=== PATIENT | male | born 1960 | race Caucasian/White ===

== ENCOUNTER 2019-12-07 15:14 | Inpatient (IN) | payer MEDICARE, SELFPAY ==
--- NOTE | ~2019-12-07 | CT_ITS ---
EXAMINATION: CT soft tissue neck w con EXAM DATE: 12/08/2019 14:57 INDICATION: Left ear cellulitis, parotid mastoid swelling. TECHNIQUE: Spiral CT of the neck was performed following intravenous injection of 75 mL Omnipaque 350 . Axial, coronal and sagittal images were reviewed. The dose-length product (DLP) for this examinat ion was 588.71 mGy-cm. The exposure was tailored according to patient size (auto mA exposure control ), and iterative reconstruction (ASIR) was used as additional dose reduction technique. There is no prior study for comparison. FINDINGS: Left-sided subcutaneous facial swelling, swelling of the left ear, appearance is consistent with cellulitis. There is no underlying abscess or sialolithiasis. The thyroid gland is unremarkabl e. The submandibular and parotid glands are symmetric. There is no cervical lymphadenopathy. The re are no masses identified. The superior mediastinum is unremarkable. The airway is unremarkabl e. Parapharyngeal and pre-glottic fat planes are preserved. The opacified vasculature is patent. Mild bilateral carotid arteriosclerosis. The orbits are unremarkable. There is minimal left mastoid e ffusion without dehiscence. Otherwise sinuses, middle ears and mastoid air cells are well aerated. Lung apices unremarkable. Cervical fusion hardware, C6 corpectomy. IMPRESSION: Left facial, ear subcutaneous swelling without underlying abscess or lymphadenopathy. Tr renzo left mastoid effusion. Reviewed, dictated and finalized at location B. IMPRESSION: Left facial, ear subcutaneous swelling without underlying abscess or lymphadenopathy. Trace left mastoid effusion.
[2019-12-07 15:55] VITALS: BP 131/73; PULSE 106; RESP 15; TEMP 36.6; O2SAT 99
[2019-12-07 16:10] LABS: Basophils Percent Auto 0.6 % (0.2-1.2); Eosinophils Absolute Auto 0.1 K/mm3 (0-0.3); Eosinophils Percent Auto 0.9 % (0-4.4); Hematocrit 37.9 % (42.0-52.0); Hemoglobin 13.2 g/dL (14.0-18.0); Immature Granulocyte Absolute 0.02 K/mm3 (0.00-0.031); Immature Granulocyte Percent A 0.3 % (0-0.5); Lymphocytes Absolute Auto 0.93 K/mm3 (0.9-3.2); Lymphocytes Percent Auto 14.2 % (18.3-44.2); Mean Corpuscular HGB Conc 34.8 g/dl (32-36); Mean Corpuscular Hemoglobin 32.8 pg (26-34); Mean Platelet Volume 9.8 fl (7.4-10.4); Monocytes Absolute Auto 0.6 K/mm3 (0.1-0.6); Monocytes Percent Auto 8.9 % (2.6-8.5); Neutrophils Absolute Auto 4.9 K/mm3 (1.3-6.7); Neutrophils Percent Auto 75.1 % (45.5-73.1); Platelet Count Result 157 k/mm3 (150-375); Red Blood Count 4.03 M/mm3 (4.6-6.20); Red Cell Distribution Width 12.4 % (11.5-14.5); White Blood Count 6.5 K/mm3 (4.5-10.0)
[2019-12-07 16:22] LABS: Lactic Acid Reflex 0.8 mmol/L (0.7-2.1)
[2019-12-07 16:25] LABS: Alanine Aminotransferase 40 U/L (4-50); Albumin Level 3.6 g/dL (3.5-5.1); Alkaline Phosphatase 67 U/L (38-126); Anion Gap 5 mmol/L (8-16); Aspartate Amino Transferase 45 U/L (17-59); Bilirubin,Total 0.4 mg/dL (0.2-1.3); Blood Urea Nitrogen 9 mg/dL (9-20); Calcium 9.2 mg/dL (8.4-10.2); Carbon Dioxide 28 mmol/L (22-30); Chloride 101 mmol/L (98-107); Estimated CRCL calculation 102 ml/min; Estimated Glomerular Filt Rate > 60; Glucose 147 mg/dL (75-110); INR 0.9; Potassium 4.5 mmol/L (3.4-5.0); Prothrombin Time 12.2 Seconds (11.1-14.7); Sodium 134 mmol/L (137-145)
[2019-12-07 16:26] LABS: Partial Thromboplastin Time 32.4 SECONDS (22.3-36.8)
[2019-12-07 16:35] LABS: CRP 18.5 mg/dL (<1.0)
--- NOTE | 2019-12-07 18:15 | ED.WOUNDLAC ---
HPI - Wound/Laceration General Chief Complaint: Wound/Laceration <NILA Archibald Last Filed: 12/07/19 20:58> Stated Complaint: infected left ear <NILA Archibald Last Filed: 12/07/19 20:58> Time Seen by Provider: 12/07/19 17:56 <NILA Archibald Last Filed: 12/07/19 20:58> Source: patient <NILA Archibald Last Filed: 12/07/19 20:58> Mode of arrival: ambulatory <NILA Archibald Last Filed: 12/07/19 20:58> Limitations: no limitations <NILA Archibald Last Filed: 12/07/19 20:58> History of Present Illness HPI narrative: This is a 59-year-old male that presents the emergency department for left ear redness and swelling x4 days. Reports he sustained a superficial abrasion to the ear while working outside on Friday. Reports when he woke up the next day his ear was red and swollen. Also reports fevers. Reports he took a couple of doses of his friends Keflex yesterday without relief. Reports he has not been on his HIV medications for the last couple of weeks. Denies drainage. <NILA Archibald Last Filed: 12/07/19 20:58> Related Data Home Medications: Home Medications Medication Instructions Recorded Confirmed twnecwtqxc-jggasaeb-dgdtzr ala 1 tablet PO DAILY 12/07/19 12/07/19 [[place]] lisinopril 20 mg PO DAILY 12/07/19 12/07/19 metformin 500 mg PO DAILY 12/07/19 12/07/19 pravastatin 20 mg PO DAILY 12/07/19 12/07/19 sertraline 50 mg PO DAILY 12/07/19 12/07/19 <NILA Archibald Last Filed: 12/07/19 20:58> Allergies/Adverse Reactions: Allergies Allergy/AdvReac Type Severity Reaction Status Date / Time Cultivated Oat Pollen Allergy Mild Itching Uncoded 12/07/19 19:01 Dust Allergy Mild Dyspnea / Uncoded 12/07/19 19:01 SOB Molds and Smuts Allergy Mild Itching Uncoded 12/07/19 19:01 <Lolly Garrison PA-C - Last Filed: 12/07/19 20:58> Review of Systems Review of Systems: Narrative: CONSTITUTIONAL: Reports fever ENT: Reports otalgia. SKIN: Reports erythema and edema <Lolly Garrison PA-C - Last Filed: 12/07/19 20:58> All systems reviewed & are unremarkable except as noted in HPI and below <Lolly Garrison PA-C - Last Filed: 12/07/19 20:58> PMF Past Medical History Medical History: Medical History (Updated 12/08/19 @ 10:11 by Odilia Sanchez PA-C) Arthritis Chronic neck and left shoulder pain Depression with anxiety Diabetes mellitus HIV (human immunodeficiency virus infection) Hypertension Peripheral neuropathy <Lolly Garrison PA-C - Last Filed: 12/07/19 20:58> Surgical History Surgical History: Surgical History (Updated 12/08/19 @ 09:56 by Odilia Sanchez PA-C) H/O hand surgery Surgery to right hand after a fracture many years ago H/O neck surgery Around 2017 History of mandibular surgery Many years ago per patient <Lolly Garrison PA-C - Last Filed: 12/07/19 20:58> Family History Family History: Family History Mother Diabetes mellitus Hypertension Myocardial infarct Hypercholesteremia Sibling Diabetes mellitus Myocardial infarct Sibling Diabetes mellitus Sibling Diabetes mellitus Sibling Diabetes mellitus Sibling Diabetes mellitus Myocardial infarct Father Lung cancer <Lolly Garrison PA-C - Last Filed: 12/07/19 20:58> Social History Social History: Social History (Updated 12/08/19 @ 09:59 by Odilia Sanchez PA-C) Social History: Mr. Huntley lives at home in [place] with his sister, Shyann. 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 He reports drinking around 2 to 3 beers per day on some days, some days none. He smokes marijuana daily for pain and anxiety. He denies other substance use. Never tobacco smoker. His PCP is Dr Juan Flores. He designates his sister, Shyann, to be his surrogate decision maker and he is full code
[2019-12-07 19:01] VITALS: BP 110/79; PULSE 82; RESP 18; O2SAT 98
[2019-12-07 19:42] LABS: HIV 1/2 Ab P24 Ag 162
[2019-12-07 19:44] LABS: HIV 1/2 Ab P24 Ag Result Reactive (Negative)
[2019-12-07 19:47] VITALS: BP 107/73; PULSE 89; RESP 18; O2SAT 100
[2019-12-07 20:45] VITALS: BP 117/74; PULSE 91; RESP 18; O2SAT 100
[2019-12-07 21:59] VITALS: BP 111/72; PULSE 76; RESP 18; O2SAT 100
[2019-12-07 22:10] VITALS: BP 126/77; PULSE 94; RESP 18; TEMP 36.4; O2SAT 100; BMI 24.2
[2019-12-07] MEDS: SODIUM CHLORIDE 0.9% IV 1,000 ML 125 ML IV CONT (22:12)
[2019-12-07] MEDS: ERTAPENEM 1 GM/NS 50 ML 1 GM/50 ML BAG IVPB (22:13)
--- NOTE | 2019-12-07 22:24 | ADMGEN ---
This patient, Montrell Huntley, was admitted to [facility] Room 314-01. Patient/family oriented to hospital policies and general routines including ID bracelet, bed and alarms, visiting hours, pain management, procedures, bathroom and other care routines, personal items, smoking policy, room service/diet, and visiting hours. Valuables list has been completed. Information on how to activate the Rapid Response Team has been discussed. Patient/Family are encouraged to report perceived risks to care and to ask questions if they do not understand what they are told or what they should do.
[2019-12-08 06:00] VITALS: BP 109/59; PULSE 90; RESP 18; TEMP 36.3; O2SAT 100
[2019-12-08] MEDS: SODIUM CHLORIDE 0.9% IV 1,000 ML 125 ML IV CONT ×2 (07:23→15:17)
[2019-12-08] MEDS: metFORMIN HCL 500 MG TABLET PO (09:18)
[2019-12-08] MEDS: lisinopriL 20 MG TABLET PO (09:18)
[2019-12-08] MEDS: SERTRALINE HCL 50 MG TABLET PO (09:18)
[2019-12-08] MEDS: PRAVASTATIN SODIUM 20 MG TABLET PO (09:19)
[2019-12-08] MEDS: INSULIN ASPART (*BKC) 100 UNITS/ML SUB-Q (09:22)
[2019-12-08] MEDS: ACETAMINOPHEN 325 MG TABLET 650 MG PO ×2 (09:27→17:14)
--- NOTE | 2019-12-08 09:31 | PM.IMHP ---
H&P: HPI History of Present Illness Date/Time: 12/08/19 09:15 Chief complaint: Left ear swelling, redness, pain Narrative: Date of Admission: 12/07/19 Date of Service: 12/08/19 The supervising physician for this history and physical is Dr Mae Salazar. Mr. Huntley is a pleasant 59yo M With history of HIV, non insulin-dependent type 2 diabetes mellitus, peripheral neuropathy, hypertension, depression and anxiety who presented to the ED for evaluation of left ear swelling. He reports he scratched his left ear on a pearl while doing yard work 5 days ago on Saturday 12/02. The following morning, he woke up with significant left ear pain, swelling, redness that has not gotten any better. He reports subjective fevers and chills at home over the last few days. Two days ago, he reports taking 3 doses of cephalexin he had at home which gave him no relief. He has been taking ibuprofen and Tylenol for pain and swelling at home with minimal relief. This morning, he rates his pain to the left ear at 5/10 severity. He reports his hearing in the left ear is unaffected at this time. Unfortunately he has been out of his antiviral medication, Odefsey, for the last 2-3 weeks. He has been HIV + since 1990 and has been on Odefsey at the direction of his ID specialist, Dr Ji Vázquez, for the last 4 years. He reports great difficulty obtaining his antiviral medication over the years due to cost and has previously been enrolled in the [place] [facility]/AIDS program to obtain his medications. He also describes an unintentional 10 lb weight loss in about the last 2 months. He describes he has had cellulitis to this left ear in the past, about 1.5 years ago that did not require hospitalization at that time. He denies any chest pain, shortness of breath, cough, nausea, vomiting, diarrhea, hematochezia, or melena. He is admitted to the hospitalist service for management of left ear cellulitis and his other comorbidities. Review of Systems Review of Systems: Narrative: He reports pain, swelling, redness to left ear and subjective fevers and chills at home over the last few days. He describes unintentional 10 lb weight loss in the last 2 months. He denies any chest pain, shortness of breath, cough, nausea, vomiting, hematochezia, or melena. He denies any dizziness, headache, or vision change. He reports hearing in left ear is unaffected. He denies speech or swallowing difficulty. Twelve systems were reviewed with pertinent positives and negatives as per HPI. Except as documented, all other systems were reviewed and are negative. [facility] Past Medical History Medical History (Updated 12/08/19 @ 10:11 by Odilia Sanchez PA-C) Arthritis Chronic neck and left shoulder pain Depression with anxiety Diabetes mellitus HIV (human immunodeficiency virus infection) Hypertension Peripheral neuropathy Surgical History Surgical History (Updated 12/08/19 @ 09:56 by Odilia Sanchez PA-C) H/O hand surgery Surgery to right hand after a fracture many years ago H/O neck surgery Around 2017 History of mandibular surgery Many years ago per patient Family History Family History Mother Diabetes mellitus Hypertension Myocardial infarct Hypercholesteremia Sibling Diabetes mellitus Myocardial infarct Sibling Diabetes mellitus Sibling Diabetes mellitus Sibling Diabetes mellitus Sibling Diabetes mellitus Myocardial infarct Father Lung cancer Social History Social History (Updated 12/08/19 @ 09:59 by Odilia Sanchez PA-C) Social History: Mr. Huntley lives at home in [place] with his sister, Shyann. 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 He reports drinking around 2 to 3 beers per day on some days, some days none. He smokes marijuana daily for pain and anxiety. He denies other substance use. Never tobacco smoker. His PCP is Dr Juan Flores. He designates his sist
[2019-12-08 09:43] LABS: Glucose Point of Care 261 (65-105)
[2019-12-08 13:25] VITALS: BMI 24.2
[2019-12-08 14:00] VITALS: BP 130/61; PULSE 80; RESP 16; TEMP 36.9; O2SAT 96
--- NOTE | 2019-12-08 14:23 | PCNSR ---
On 12/08/19, the student, Lucy Garber, provided care and completed [facility] documentation on this patient. I have reviewed the student's documentation and agree with the findings.
--- NOTE | 2019-12-08 14:46 | PC.NURSE ---
to CT per w/c. IV saline locked
--- NOTE | 2019-12-08 15:23 | PC.NURSE ---
patient returning from CT. returned to bed.
[2019-12-08 17:46] LABS: Glucose Point of Care 89 (65-105)
[2019-12-08] MEDS: ERTAPENEM 1 GM/NS 50 ML 1 GM/50 ML BAG IVPB (20:56)
[2019-12-08 21:48] VITALS: BP 111/84; PULSE 88; RESP 20; TEMP 36.4; O2SAT 98
[2019-12-08 23:15] LABS: Glucose Point of Care 153 (65-105)
[2019-12-09] MEDS: SODIUM CHLORIDE 0.9% IV 1,000 ML 125 ML IV CONT ×2 (01:53→10:39)
[2019-12-09 05:51] VITALS: BP 139/91; PULSE 89; RESP 20; TEMP 36.4; O2SAT 100
[2019-12-09] MEDS: lisinopriL 20 MG TABLET PO (08:57)
[2019-12-09] MEDS: metFORMIN HCL 500 MG TABLET PO (08:57)
[2019-12-09] MEDS: SERTRALINE HCL 50 MG TABLET PO (08:58)
[2019-12-09] MEDS: PRAVASTATIN SODIUM 20 MG TABLET PO (08:58)
[2019-12-09 09:06] LABS: Glucose Point of Care 119 (65-105)
[2019-12-09 09:51] LABS: Basophils Percent Auto 0.5 % (0.2-1.2); Eosinophils Absolute Auto 0.1 K/mm3 (0-0.3); Eosinophils Percent Auto 1.2 % (0-4.4); Hematocrit 40.7 % (42.0-52.0); Hemoglobin 13.9 g/dL (14.0-18.0); Immature Granulocyte Absolute 0.02 K/mm3 (0.00-0.031); Immature Granulocyte Percent A 0.5 % (0-0.5); Lymphocytes Absolute Auto 1.15 K/mm3 (0.9-3.2); Lymphocytes Percent Auto 26.6 % (18.3-44.2); Mean Corpuscular HGB Conc 34.2 g/dl (32-36); Mean Corpuscular Hemoglobin 32.6 pg (26-34); Mean Corpuscular Volume 95.5 fl (80-100); Mean Platelet Volume 9.7 fl (7.4-10.4); Monocytes Absolute Auto 0.3 K/mm3 (0.1-0.6); Monocytes Percent Auto 6.5 % (2.6-8.5); Neutrophils Absolute Auto 2.8 K/mm3 (1.3-6.7); Neutrophils Percent Auto 64.7 % (45.5-73.1); Platelet Count Result 190 k/mm3 (150-375); Red Blood Count 4.26 M/mm3 (4.6-6.20); Red Cell Distribution Width 12.2 % (11.5-14.5); White Blood Count 4.3 K/mm3 (4.5-10.0)
[2019-12-09 10:03] LABS: Anion Gap 2 mmol/L (8-16); Blood Urea Nitrogen 7 mg/dL (9-20); Calcium 8.8 mg/dL (8.4-10.2); Carbon Dioxide 33 mmol/L (22-30); Chloride 100 mmol/L (98-107); Estimated CRCL calculation 102 ml/min; Estimated Glomerular Filt Rate > 60; Glucose 130 mg/dL (75-110); Potassium 4.4 mmol/L (3.4-5.0); Sodium 135 mmol/L (137-145)
[2019-12-09 10:25] LABS: Hemoglobin A1C 6.1 % (<5.7)
--- NOTE | 2019-12-09 11:16 | PM.IMPN ---
Progress Note: A&P Assessment and Plan (1) Cellulitis of left external ear: Code(s): H60.12 - Cellulitis of left external ear Status: Acute Assessment and Plan: Patient presents with cellulitis to left outer ear after scratching his ear on a pearl doing yard work. Situation is complicated by his HIV + status and DM. Appreciate infectious disease consultation in this setting. Initially treated with IV vancomycin and ertapenem - switched to IV ancef today per Dr Rodriguez's recommendations. Tight glycemic control to optimize wound healing. (2) HIV (human immunodeficiency virus infection): Qualifiers: HIV symptom status: unspecified Qualified Code(s): B20 - Human immunodeficiency virus [HIV] disease Code(s): B20 - Human immunodeficiency virus [HIV] disease Status: Chronic Assessment and Plan: Patient HIV + since 1990; has been on Odefsey for 4 years. Has been out of Odefsey for the last 2 or 3 weeks and historically has had difficulty obtaining his medication due to cost. His ID specialist is Dr Ji Vázquez. (3) Diabetes mellitus: Qualifiers: Diabetes mellitus complication status: without complication Diabetes mellitus residential insulin use: without edge drummer use Diabetes mellitus type: type 2 Qualified Code(s): E11.9 - Type 2 diabetes mellitus without complications Code(s): E11.9 - Type 2 diabetes mellitus without complications Status: Chronic Assessment and Plan: Hgb A1c 6.1. Continue his home metformin. Monitor with Accu-cheks and cover with SSI. Goal of tighter glycemic control to optimize wound healing. (4) Hypertension: Code(s): I10 - Essential (primary) hypertension Status: Chronic Assessment and Plan: Stable. Continue his home lisinopril. Monitor BP and adjust treatment as needed. (5) Depression with anxiety: Code(s): F41.8 - Other specified anxiety disorders Status: Chronic Assessment and Plan: Stable. Resume his home Zoloft. Subjective Date/time seen: 12/09/19 1030 Interval history: Mr. Huntley is a pleasant 59yo M with HIV admitted for left ear cellulitis. His left ear pain is improved today and he notices the swelling has gone down. He did not sleep much. He denies chest pain, shortness of breath or cough. He tolerated some breakfast without nausea or vomiting. No BM since being here. Review of Systems Review of Systems: All systems reviewed & are unremarkable except as noted in HPI and below Exam Narrative: Exam Narrative: General: Well-developed thin male resting supine in bed in no acute distress. HEENT: Atraumatic, EOMI, oropharynx clear, multiple missing and cracked teeth. Left outer ear is erythematous, edematous, warm and painful to touch but improved from yesterday. Pre- and post-auricular swelling, erythema and induration noted but also improved. Small scabbed lesion <1cm to back of left ear lobe without open wound or drainage. Neck: Left neck lymphadenopathy. Some mild pain to palpation over left sternocleidomastoid. No point tenderness to C-spine. Negative meningeal signs. Chest: Lungs clear to auscultation all grady. Respirations are even and nonlabored. Tolerating room air. Heart: Heart rate and rhythm regular with S1-S2. No rub, gallop, or murmur appreciated. Abdomen: Soft, nontender, nondistended, bowel sounds present. Skin: Cellulitis left ear detailed above; otherwise no rashes or lesions are noted. Extremities: Peripheral pulses are intact. No edema, cyanosis or clubbing. No pain to palpation. Neurologic: Alert and oriented. Cranial nerves 2-12 are grossly intact. No focal neurological deficits are noted. Speech is clear. Psychiatric
[2019-12-09 11:32] LABS: Glucose Point of Care 185 (65-105)
--- NOTE | 2019-12-09 13:59 | WPDINFPN2 ---
Progress Note: A&P Assessment and Plan (1) Cellulitis of left external ear: Code(s): H60.12 - Cellulitis of left external ear Status: Acute Assessment and Plan: left pinna cellulitis REC Ancef until substantial response, then cephalexin. Home antiretrovirals. Subjective Date/time seen: 12/09/19 13:59 Objective Data Vital Signs Vital Signs: Vital Signs - 24 hr 12/08/19 14:00 12/08/19 21:48 12/09/19 05:51 Temperature 36.9 C 36.4 C 36.4 C Pulse Rate 80 88 89 Respiratory Rate 16 20 20 Blood Pressure 130/61 111/84 139/91 H Pulse Oximetry 96 98 100 Intake/Output Intake/Output: Intake & Output 12/06/19 12/07/19 12/08/19 12/09/19 23:59 23:59 23:59 23:59 Intake Total 350 3440 3210 Output Total 2200 2100 Balance 350 1240 1110 Meds/Results Medications: Active Medications Generic Name Dose Route Start Last Admin Trade Name Freq PRN Reason Stop Dose Admin Acetaminophen 650 mg 12/08/19 07:50 12/08/19 17:14 Tylenol Tablet PO 650 mg Q4H PRN Administration Pain or Fever Dextrose 12.5 gm 12/08/19 07:47 Dextrose 50% Syringe IV PUSH PRN PRN Hypoglycemia Protocol Glucagon 1 mg 12/08/19 07:47 Glucagon For Inj IM PRN PRN Hypoglycemia Protocol Glucose 15 gm 12/08/19 07:47 Glutose 15 PO PRN PRN Hypoglycemia Protocol Sodium Chloride 1,000 mls @ 125 mls/hr 12/07/19 20:40 12/09/19 10:39 Normal Saline Iv IV CONT 125 mls/hr .Q8H MARCUS Administration Dextrose 1,000 mls @ 100 mls/hr 12/08/19 07:47 Dextrose 5% 1,000 Ml IVPB PRN PRN Hypoglycemia Protocol Insulin Aspart 3 - 6 units 12/08/19 08:00 12/09/19 11:39 Novolog SUB-Q Not Given TIDWM MARCUS Protocol Lisinopril 20 mg 12/08/19 09:00 12/09/19 08:57 Prinivil PO 20 mg DAILY MARCUS Administration Metformin HCl 500 mg 12/08/19 09:00 12/09/19 08:57 Glucophage PO 500 mg DAILY MARCUS Administration Non-Formulary Medication 1 tablet 12/08/19 19:15 Ivbdevpcrz-Lwmtioyi-Aajzzt Ala [Odefsey] PO 01/07/20 09:01 DAILY MARCUS Ondansetron HCl 4 mg 12/08/19 07:50 Zofran Inj IV PUSH Q6H PRN Nausea And Vomiting Pravastatin Sodium 20 mg 12/08/19 09:00 12/09/19 08:58 Pravastatin Sodium PO 20 mg DAILY MARCUS Administration Sertraline HCl 50 mg 12/08/19 09:00 12/09/19 08:58 Zoloft PO 50 mg DAILY MARCUS Administration Radiology Results: ITS Impressions Soft Tissue Neck CT 12/08/19 15:20 IMPRESSION: Left facial, ear subcutaneous swelling without underlying abscess or lymphadenopathy. Trace left mastoid effusion. Labs Labs: Laboratory Results - last 24 hr 12/08/19 12/08/19 12/09/19 17:11 21:01 08:22 WBC RBC Hgb Hct MCV MCH MCHC RDW Plt Count MPV Immature Gran % (Auto) Neut % (Auto) Lymph % (Auto) Gates % (Auto) Eos % (Auto) Baso % (Auto) Lymph # (Auto) Gates # (Auto) Eos # (Auto) Baso # (Auto) Abs Immat Gran (auto) Absolute Neuts (auto) Absolute Nucleated RBC Nucleated RBC % Sodium Potassium Chloride Carbon Dioxide Anion Gap BUN Creatinine Estim Creat Clear Calc Estimated GFR Glucose POC Capillary Glucose 89 153 H 119 H Hemoglobin A1c Calcium Magnesium 12/09/19 12/09/19 12/09/19 09:21 09:21 09:22 WBC 4.3 L RBC 4.26 L Hgb 13.9 L Hct 40.7 L MCV 95.5 MCH 32.6 MCHC 34.2 RDW 12.2 Plt Count 190 MPV 9.7 Immature Gran % (Auto) 0.5 Neut % (Auto) 64.7 Lymph % (Auto) 26.6 Gates % (Auto) 6.5 Eos % (Auto) 1.2 Baso % (Auto) 0.5 Lymph # (Auto) 1.15 Gates # (Auto) 0.3 Eos # (Auto) 0.1 Baso # (Auto) 0.0 Abs Immat Gran (auto) 0.02 Absolute Neuts (auto) 2.8 Absolute Nucleated RBC 0.0 Nucleated RBC % 0.0 Sodium 135 L Potassium 4.4 Chloride 100 Carb
[2019-12-09 14:00] VITALS: BP 111/71; PULSE 110; RESP 18; TEMP 36.6; O2SAT 97
[2019-12-09 16:47] LABS: Glucose Point of Care 158 (65-105)
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
[2019-12-09 21:37] LABS: Glucose Point of Care 154 (65-105)
[2019-12-09 22:00] VITALS: BP 118/81; PULSE 99; RESP 20; TEMP 36.6; O2SAT 97
[2019-12-10] MEDS: ACETAMINOPHEN 325 MG TABLET 650 MG PO (05:32)
[2019-12-10 06:00] VITALS: BP 114/84; PULSE 87; RESP 16; TEMP 36.5; O2SAT 96
[2019-12-10 06:44] LABS: Basophils Percent Auto 0.8 % (0.2-1.2); Eosinophils Absolute Auto 0.1 K/mm3 (0-0.3); Eosinophils Percent Auto 3.3 % (0-4.4); Hematocrit 38.3 % (42.0-52.0); Hemoglobin 13.3 g/dL (14.0-18.0); Immature Granulocyte Absolute 0.02 K/mm3 (0.00-0.031); Immature Granulocyte Percent A 0.5 % (0-0.5); Lymphocytes Absolute Auto 1.48 K/mm3 (0.9-3.2); Lymphocytes Percent Auto 40.2 % (18.3-44.2); Mean Corpuscular HGB Conc 34.7 g/dl (32-36); Mean Corpuscular Hemoglobin 32.8 pg (26-34); Mean Corpuscular Volume 94.3 fl (80-100); Mean Platelet Volume 9.3 fl (7.4-10.4); Monocytes Absolute Auto 0.3 K/mm3 (0.1-0.6); Monocytes Percent Auto 9.2 % (2.6-8.5); Neutrophils Absolute Auto 1.7 K/mm3 (1.3-6.7); Platelet Count Result 197 k/mm3 (150-375); Red Blood Count 4.06 M/mm3 (4.6-6.20); Red Cell Distribution Width 11.9 % (11.5-14.5); White Blood Count 3.7 K/mm3 (4.5-10.0)
[2019-12-10 07:09] LABS: Potassium 4.1 mmol/L (3.4-5.0)
[2019-12-10 07:31] LABS: Anion Gap 6 mmol/L (8-16); Blood Urea Nitrogen 12 mg/dL (9-20); Calcium 9.2 mg/dL (8.4-10.2); Carbon Dioxide 31 mmol/L (22-30); Chloride 100 mmol/L (98-107); Estimated CRCL calculation 90 ml/min; Estimated Glomerular Filt Rate > 60; Glucose 123 mg/dL (75-110); Magnesium 1.9 mg/dL (1.6-2.3); Sodium 137 mmol/L (137-145)
[2019-12-10] MEDS: PRAVASTATIN SODIUM 20 MG TABLET PO (08:26)
[2019-12-10] MEDS: lisinopriL 20 MG TABLET PO (08:26)
[2019-12-10] MEDS: SERTRALINE HCL 50 MG TABLET PO (08:26)
[2019-12-10] MEDS: metFORMIN HCL 500 MG TABLET PO (08:26)
[2019-12-10 08:56] LABS: Glucose Point of Care 116 (65-105)
[2019-12-10 12:05] LABS: Glucose Point of Care 131 (65-105)
--- NOTE | 2019-12-10 13:12 | PCDIET ---
Nutrition Follow-Up Complete: Nutrition Diagnosis: Predicted inadequate energy intake related to poor appetite as evidenced by intake record and pt reported weight loss of 10lbs in last two months. Nutrition Goal: Pt. will consume at least 90% of meals and caloric needs to maintain weight and mediate DMT2. Goal met. Patient consuming 100% of meals on heart healthy diet and taking Ensure Compact BID. Glucose fairly well controlled, though patient may benefit from the addition of carbohydrate control. Recommend increasing supplement to TID with meals. Coupon for Ensure provided, as patient plans to purchase upon discharge. Last recorded weight is 78.7 kg. Recommend obtaining new weight. Bowel Motility: No documented BM as of yet. Labs Reviewed: Hgb (13.3), Hct (38.3), Glu (123) Meds Noted: Ancef, Novolog, Glucophage Additional Notes: No documented skin breakdown. Will continue to monitor with same goal. Nutrition Monitoring and Evaluation: Follow up in 5 days.
[2019-12-10 14:00] VITALS: BP 126/88; PULSE 106; RESP 18; TEMP 36.7; O2SAT 96
--- NOTE | 2019-12-10 14:10 | PM.IMPN ---
Progress Note: A&P Assessment and Plan (1) Cellulitis of left external ear: Code(s): H60.12 - Cellulitis of left external ear Status: Acute Assessment and Plan: Patient presents with cellulitis to left outer ear after scratching his ear on a pearl doing yard work. Situation is complicated by his HIV + status and DM. Appreciate infectious disease consultation in this setting. Initially treated with IV vancomycin and ertapenem - switched to IV ancef 12/[address] Rodriguez's recommendations. Hopeful for discharge in next 1 to 2 days with oral Keflex pending clinical improvement. Tight glycemic control to optimize wound healing. (2) HIV (human immunodeficiency virus infection): Qualifiers: HIV symptom status: unspecified Qualified Code(s): B20 - Human immunodeficiency virus [HIV] disease Code(s): B20 - Human immunodeficiency virus [HIV] disease Status: Chronic Assessment and Plan: Patient HIV + since 1990; has been on Odefsey for 4 years. Has been out of Odefsey for the last 2 or 3 weeks and historically has had difficulty obtaining his medication due to cost. His ID specialist is Ji Vázquez PA-C. I have contacted their office today and requested a refill of Odefsey sent to his pharmacy. Last appointment with Ji Vázquez PA-C on 11/15 (phone visit) and next visit scheduled for 03/21/20. I have scheduled him a short-interval follow up phone visit with Ji Vázquez PA-C for Wednesday 12/13 at 11am. (3) Diabetes mellitus: Qualifiers: Diabetes mellitus complication status: without complication Diabetes mellitus intermediate insulin use: without lobsterman use Diabetes mellitus type: type 2 Qualified Code(s): E11.9 - Type 2 diabetes mellitus without complications Code(s): E11.9 - Type 2 diabetes mellitus without complications Status: Chronic Assessment and Plan: Hgb A1c 6.1. Continue his home metformin. Monitor with Accu-cheks and cover with SSI. Goal of tighter glycemic control to optimize wound healing. Blood sugars stable today. (4) Hypertension: Code(s): I10 - Essential (primary) hypertension Status: Chronic Assessment and Plan: Stable, last 126/88. Continue his home lisinopril. Monitor BP and adjust treatment as needed. (5) Depression with anxiety: Code(s): F41.8 - Other specified anxiety disorders Status: Chronic Assessment and Plan: Stable. Resume his home Zoloft. Subjective Date/time seen: 12/10/19 1045 Interval history: Mr. Huntley is a pleasant 59yo M with HIV admitted for left ear cellulitis. His left ear pain and swelling are improving. Slept okay last night. He denies chest pain, shortness of breath or cough. Tolerating oral intake without nausea, vomiting or abdominal pain. Review of Systems Review of Systems: All systems reviewed & are unremarkable except as noted in HPI and below Exam Narrative: Exam Narrative: General: Male resting comfortably sitting up in bed in no acute distress. HEENT: Atraumatic, EOMI, oral mucosa moist, multiple missing and cracked teeth. Left outer ear is erythematous, edematous, warm and but notably improved from days prior. Pre- and post-auricular swelling, erythema and induration noted but also improved. Small scabbed lesion <1cm to back of left ear lobe without open wound or drainage. Neck: Supple with some tenderness to palpation on left. Chest: Lungs clear to auscultation all grady. Respirations are even and nonlabored. Tolerating room air. Heart: Heart rate and rhythm regular. Abdomen: Soft, nontender, nondistended, bowel sounds present. Extremities: Peripheral pulses are intact. No edema. Neurologic: Alert and oriented. Cranial nerves
--- NOTE | 2019-12-10 16:38 | WPDINFPN2 ---
Progress Note: A&P Assessment and Plan (1) Cellulitis of left external ear: Code(s): H60.12 - Cellulitis of left external ear Status: Acute Assessment and Plan: 1. left pinna cellulitis, exam improved 2. HIV infection, her reports + insurance auth. for Odefsey REC Ancef another 12-36 hours, then cephalexin 500 qid x 7 days. Home antiretrovirals. F/U with Dr. Mcmahan Subjective Date/time seen: 12/10/19 16:38 Interval history: ear feels better Exam Narrative: Exam Narrative: no fever Const: General: no acute distress HENMT: Other: edema and erythema of pinna are less marked, preauricular erythema is same Objective Data Vital Signs Vital Signs: Vital Signs - 24 hr 12/09/19 22:00 12/10/19 06:00 12/10/19 14:00 Temperature 36.6 C 36.5 C 36.7 C Pulse Rate 99 87 106 H Respiratory Rate 20 16 18 Blood Pressure 118/81 114/84 126/88 Pulse Oximetry 97 96 96 Intake/Output Intake/Output: Intake & Output 12/07/19 12/08/19 12/09/19 12/10/19 23:59 23:59 23:59 23:59 Intake Total 350 3440 5510 1020 Output Total 2200 4600 1900 Balance 350 1240 910 -880 Meds/Results Medications: Active Medications Generic Name Dose Route Start Last Admin Trade Name Freq PRN Reason Stop Dose Admin Acetaminophen 650 mg 12/08/19 07:50 12/10/19 05:32 Acetaminophen 325 Mg Tablet PO 650 mg Q4H PRN Administration Pain or Fever Dextrose 12.5 gm 12/08/19 07:47 Dextrose 50% Syringe IV PUSH PRN PRN Hypoglycemia Protocol Glucagon 1 mg 12/08/19 07:47 Glucagon For Inj IM PRN PRN Hypoglycemia Protocol Glucose 15 gm 12/08/19 07:47 Glutose 15 PO PRN PRN Hypoglycemia Protocol Dextrose 1,000 mls @ 100 mls/hr 12/08/19 07:47 Dextrose 5% 1,000 Ml IVPB PRN PRN Hypoglycemia Protocol Cefazolin Sodium 1 gm in 50 mls @ 100 mls/hr 12/09/19 14:00 12/10/19 15:38 Ancef 1 Gm/D5w 50 Ml Pm IVPB Infused Q8H [facility] Infusion Insulin Aspart 3 - 6 units 12/08/19 08:00 12/10/19 11:57 Novolog SUB-Q Not Given TIDWM [facility] Protocol Lisinopril 20 mg 12/08/19 09:00 12/10/19 08:26 Prinivil PO 20 mg DAILY MARCUS Administration Metformin HCl 500 mg 12/08/19 09:00 12/10/19 08:26 Glucophage PO 500 mg DAILY MARCUS Administration Ondansetron HCl 4 mg 12/08/19 07:50 Zofran Inj IV PUSH Q6H PRN Nausea And Vomiting Polyethylene Glycol 17 gm 12/09/19 15:55 Polyethylene Glycol 3350 17 Gm Powd.Pack PO QAM PRN Constipation Pravastatin Sodium 20 mg 12/08/19 09:00 12/10/19 08:26 Pravastatin Sodium PO 20 mg DAILY MARCUS Administration Sertraline HCl 50 mg 12/08/19 09:00 12/10/19 08:26 Zoloft PO 50 mg DAILY MARCUS Administration Radiology Results: ITS Impressions Soft Tissue Neck CT 12/08/19 15:20 IMPRESSION: Left facial, ear subcutaneous swelling without underlying abscess or lymphadenopathy. Trace left mastoid effusion. Labs Labs: Laboratory Results - last 24 hr 12/09/19 12/09/19 12/10/19 16:40 21:31 06:23 WBC 3.7 L RBC 4.06 L Hgb 13.3 L Hct 38.3 L MCV 94.3 MCH 32.8 MCHC 34.7 RDW 11.9 Plt Count 197 MPV 9.3 Immature Gran % (Auto) 0.5 Neut % (Auto) 46.0 Lymph % (Auto) 40.2 [place] % (Auto) 9.2 H Eos % (Auto) 3.3 Baso % (Auto) 0.8 Lymph # (Auto) 1.48 [place] # (Auto) 0.3 Eos # (Auto) 0.1 Baso # (Auto) 0.0 Abs Immat Gran (auto) 0.02 Absolute Neuts (auto) 1.7 Absolute Nucleated RBC 0.0 Nucleated RBC % 0.0 Sodium Potassium Chloride Carbon Dioxide Anion Gap BUN Creatinine Estim Creat Clear Calc Estimated GFR Glucose POC Capillary Glucose 158 H 154 H Calcium Magnesium 12/10/19 12/10/19 12/10/19 06:23 08:25 11:55 WBC RBC Hgb Hct MCV MCH MCHC RDW Plt Count MPV Immature Gran % (Auto)
[2019-12-10 18:14] LABS: Glucose Point of Care 149 (65-105)
[2019-12-10 21:44] LABS: Glucose Point of Care 193 (65-105)
[2019-12-10 22:00] VITALS: BP 120/79; PULSE 110; RESP 18; TEMP 36.4; O2SAT 97
[2019-12-11 06:00] VITALS: BP 122/78; PULSE 89; RESP 16; TEMP 36.1; O2SAT 99
[2019-12-11 08:05] LABS: Glucose Point of Care 130 (65-105)
[2019-12-11 08:47] VITALS: BP 119/77; PULSE 88; RESP 18; O2SAT 97
[2019-12-11] MEDS: PRAVASTATIN SODIUM 20 MG TABLET PO (08:49)
[2019-12-11] MEDS: lisinopriL 20 MG TABLET PO (08:49)
[2019-12-11] MEDS: SERTRALINE HCL 50 MG TABLET PO (08:49)
[2019-12-11] MEDS: metFORMIN HCL 500 MG TABLET PO (08:49)
[2019-12-11 12:19] LABS: Glucose Point of Care 152 (65-105)
--- NOTE | 2019-12-11 12:32 | PM.DS ---
DS: Admitting Diagnosis Admitting Diagnosis Admitting Diagnosis: Left ear cellulitis DS: Discharge Diagnosis Discharge Diagnosis (1) Cellulitis of left external ear: Code(s): H60.12 - Cellulitis of left external ear Status: Acute Assessment and Plan: Date of Admission 12/07/19 Date of Discharge/DOS 12/11/19 Mr Huntley is a very pleasant 59yo M with history of HIV, non insulin-dependent type 2 diabetes mellitus, hypertension, and depression with anxiety presented to the ED for evaluation of left ear swelling, redness, and pain. He scratched his ear on a tree branch while he was out doing yard work and noticed significant swelling, redness, and pain to the left ear the following morning when he woke up. He was admitted to the hospitalist service for left pinna cellulitis. He was treated initially with IV vancomycin and ertapenem which was switched to IV cefazolin 12/09/19 at the recommendation of Infectious Disease, Dr. Rodriguez. His established infectious disease specialist is Ji Vázquez PA-C who he last had a phone call visit with on 11/16/19. Unfortunately, he has been out of his anti-retroviral, Odefsey, for the last 2-3 weeks. He describes difficulty obtaining this medication due to cost. I spoke with staff at Ji Vázquez's office 12/10/19 and requested a refill of his medication to be sent to the pharmacy and scheduled a phone visit follow-up appointment for Wednesday 12/13. Patient's left ear pain, swelling, redness is markedly improved with IV antibiotics and he is hemodynamically stable for discharge on 12/11/2019 oral Keflex for another 7 days per ID recommendations Patient presents with cellulitis to left outer ear after scratching his ear on a pearl doing yard work. Situation is complicated by his HIV + status and DM. Appreciate infectious disease consultation in this setting. Initially treated with IV vancomycin and ertapenem - switched to IV ancef 12/[address] Rodriguez's recommendations. Tight glycemic control to optimize wound healing. (2) HIV (human immunodeficiency virus infection): Qualifiers: HIV symptom status: unspecified Qualified Code(s): B20 - Human immunodeficiency virus [HIV] disease Code(s): B20 - Human immunodeficiency virus [HIV] disease Status: Chronic Assessment and Plan: Patient HIV + since 1990; has been on Odefsey for 4 years. Has been out of Odefsey for the last 2 or 3 weeks and historically has had difficulty obtaining his medication due to cost. His ID specialist is Ji Vázquez PA-C. I have contacted their office 12/09 and requested a refill of Odefsey sent to his pharmacy. Last appointment with Ji Vázquez PA-C on 11/15 (phone visit) and next visit scheduled for 03/21/20. I have scheduled him a short-interval follow up phone visit with Ji Vázquez PA-C for Wednesday 12/13 at 11am. (3) Diabetes mellitus: Qualifiers: Diabetes mellitus complication status: without complication Diabetes mellitus terminal manager insulin use: without terminal manager use Diabetes mellitus type: type 2 Qualified Code(s): E11.9 - Type 2 diabetes mellitus without complications Code(s): E11.9 - Type 2 diabetes mellitus without complications Status: Chronic Assessment and Plan: Hgb A1c 6.1. Blood sugars have been stable maintained on his home metformin. (4) Hypertension: Code(s): I10 - Essential (primary) hypertension Status: Chronic Assessment and Plan: Stable maintained on his home lisinopril. Last BP 119/77. (5) Depression with anxiety: Code(s): F41.8 - Other specified anxiety disorders Status: Chronic Assessment and Plan: Stable. Resume his home Zoloft. DS:
[2019-12-11 20:06] LABS: HIV 1 2 Ag Ab 4th Gen w Rflxs Reactive (Non-reactive); HIV 1 Ab Chg Test Yes; HIV 1 Antibody Positive (Negative); HIV 2 Ab Chg Test Yes; HIV 2 Antibody Negative (Negative)
[2019-12-14 08:29] LABS: HIV 1 RNA PCR 1.93 Log cps/mL; HIV 1 RNA PCR 84 Copies/mL
== END 2019-12-11 14:14 | disposition home or self-care (01) | DRG 155 ==
LOC: ANHED 20:54 → ANH3MEDSUR 21:28
PROVIDERS: Physician Assistant; Admitting Provider Internal Medicine; Emergency Provider Emergency Medicine; Visit Provider Physician Assistant
DX: H60.12 Cellulitis of left external ear (principal); B20 Human immunodeficiency virus [HIV] disease; E11.42 Type 2 diabetes mellitus with diabetic polyneuropathy; F41.8 Other specified anxiety disorders; I10 Essential (primary) hypertension; Z23 Encounter for immunization; Z79.84 Long term (current) use of oral hypoglycemic drugs; Z79.899 Other long term (current) drug therapy
CPT/HCPCS: 36415; 70491; 80048; 80053; 82948; 83036; 83605; 83735; 85025; 85610; 85730; 86140; 86701; 86702; 86703; 87040; 87389; 87536; 90471; 90653; 96361; 96365; 96366; 96367; 99285; A9270; G0008; G0378; G0432; J0690; J1335; J1815; J3370; J7030; Q9967

== ENCOUNTER 2020-05-01 14:55 | Inpatient (IN) | payer MEDICARE, MEDICAID, SELFPAY ==
--- NOTE | ~2020-05-01 | XR_ITS ---
EXAMINATION: XR abdomen/kub 1V INDICATION: Rectal foreign TECHNIQUE: Supine views of the abdomen were obtained on 2 radiographs. COMPARISON: 12/05/2018 FINDINGS: There is an egg-shaped foreign body projecting in the pelvis in the expected location of th e rectum, consistent with patient's clinical history. There is a moderate volume of colonic stool. No free intraperitoneal gas is identified. The bowel gas pattern is normal. 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 IMPRESSION: 1. Egg-shaped rectal foreign body. Surgical consultation is recommended. Reviewed, dictated and finalized at location A. [facility]
[2020-05-01 15:01] VITALS: BP 130/83; PULSE 114; RESP 18; TEMP 36.6; O2SAT 98
--- NOTE | 2020-05-01 17:25 | ED.SKABFB ---
HPI - Skin/Abscess/Foreign Bdy General Chief complaint: Urogenital-Male <Lolly Garrison PA-C - Last Filed: 05/01/20 18:51> Stated complaint: constipated, unable to void <Lolly Garrison PA-C - Last Filed: 05/01/20 18:51> Time Seen by Provider: 05/01/20 17:16 <NILA Archibald Last Filed: 05/01/20 18:51> Source: patient <NILA Archibald Last Filed: 05/01/20 18:51> Mode of arrival: ambulatory <NILA Archibald Last Filed: 05/01/20 18:51> Limitations: no limitations <NILA Archibald Last Filed: 05/01/20 18:51> History of Present Illness HPI narrative: This is a 59 year old male that presents to the ER for rectal foreign body. Reports he has a glass egg stuck in his rectum. It has been in there for about 4-5 days. Reports he now is having some trouble urinating as well. He has been able to pass gas, but has not had a BM. Denies fever, abdominal pain, or vomiting. <Lolly Garrison PA-C - Last Filed: 05/01/20 18:51> Related Data Home medications: Home Medications Medication Instructions Recorded Confirmed Odefsey 1 tablet PO DAILY 12/07/19 12/07/19 lisinopril 20 mg PO DAILY 12/07/19 12/07/19 metformin 500 mg PO DAILY 12/07/19 12/07/19 pravastatin 20 mg PO DAILY 12/07/19 12/07/19 sertraline 50 mg PO DAILY 12/07/19 12/07/19 <NILA Archibald Last Filed: 05/01/20 18:51> Allergies/Adverse reactions: Allergies Allergy/AdvReac Type Severity Reaction Status Date / Time Cultivated Oat Pollen Allergy Mild Itching Uncoded 12/07/19 19:01 Dust Allergy Mild Dyspnea / Uncoded 12/07/19 19:01 SOB Molds and Smuts Allergy Mild Itching Uncoded 12/07/19 19:01 <Lolly Garrison PA-C - Last Filed: 05/01/20 18:51> Review of Systems Review of Systems: Narrative: CONSTITUTIONAL: Denies fever GASTROINTESTINAL: Denies abdominal pain, nausea, vomiting <Lolly Garrison PA-C - Last Filed: 05/01/20 18:51> All systems reviewed & are unremarkable except as noted in HPI and below <Lolly Garrison PA-C - Last Filed: 05/01/20 18:51> [facility] Past Medical History Medical History: Medical History Arthritis Chronic neck and left shoulder pain Depression with anxiety Diabetes mellitus HIV (human immunodeficiency virus infection) Hypertension Peripheral neuropathy <NILA Archibald Last Filed: 05/01/20 18:51> Surgical History Surgical History: Surgical History (Updated 05/01/20 @ 19:28 by Antoni Pinon DO) H/O hand surgery Surgery to right hand after a fracture many years ago H/O neck surgery Around 2017 History of mandibular surgery Many years ago per patient Hx of umbilical hernia repair <NILA Archibald Last Filed: 05/01/20 18:51> Family History Family History: Family History Mother Diabetes mellitus Hypertension Myocardial infarct Hypercholesteremia Sibling Diabetes mellitus Myocardial infarct Sibling Diabetes mellitus Sibling Diabetes mellitus Sibling Diabetes mellitus Sibling Diabetes mellitus Myocardial infarct Father Lung cancer <Lolly Garrison PA-C - Last Filed: 05/01/20 18:51> Social History Social History: Social History Social History: Mr. Huntley lives at home in [place] with his sister, Shyann. 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 He reports drinking around 2 to 3 beers per day on some days, some days none. He smokes marijuana daily for pain and anxiety. He denies other substance use. Never tobacco smoker. His PCP is Dr Juan Flores. He designates his sister, Shyann, to be his surrogate decision maker and he is full code status. Smoking status: Never smoker Alcohol intake: current Drinks per week: 8 Substance use: current Substance use type: ma
[2020-05-01 17:53] LABS: Basophils Percent Auto 0.6 % (0.2-1.2); Eosinophils Absolute Auto 0.1 K/mm3 (0-0.3); Eosinophils Percent Auto 1.7 % (0-4.4); Hematocrit 42.1 % (42.0-52.0); Hemoglobin 14.6 g/dL (14.0-18.0); Immature Granulocyte Absolute 0.03 K/mm3 (0.00-0.031); Immature Granulocyte Percent A 0.6 % (0-0.5); Lymphocytes Absolute Auto 1.67 K/mm3 (0.9-3.2); Lymphocytes Percent Auto 35.8 % (18.3-44.2); Mean Corpuscular HGB Conc 34.7 g/dl (32-36); Mean Corpuscular Hemoglobin 32.3 pg (26-34); Mean Corpuscular Volume 93.1 fl (80-100); Mean Platelet Volume 9.6 fl (7.4-10.4); Monocytes Absolute Auto 0.4 K/mm3 (0.1-0.6); Neutrophils Absolute Auto 2.4 K/mm3 (1.3-6.7); Neutrophils Percent Auto 52.3 % (45.5-73.1); Platelet Count Result 185 k/mm3 (150-375); Red Blood Count 4.52 M/mm3 (4.6-6.20); Red Cell Distribution Width 12.4 % (11.5-14.5); White Blood Count 4.7 K/mm3 (4.5-10.0)
[2020-05-01 18:01] LABS: Prothrombin Time 13.4 Seconds (11.1-14.7)
[2020-05-01 18:02] LABS: Partial Thromboplastin Time 24.7 SECONDS (22.3-36.8)
[2020-05-01 18:05] LABS: Alanine Aminotransferase 23 U/L (4-50); Albumin Level 4.1 g/dL (3.5-5.1); Alkaline Phosphatase 71 U/L (38-126); Anion Gap 6 mmol/L (8-16); Aspartate Amino Transferase 28 U/L (17-59); Bilirubin,Total 0.6 mg/dL (0.2-1.3); Blood Urea Nitrogen 17 mg/dL (9-20); Calcium 8.9 mg/dL (8.4-10.2); Carbon Dioxide 30 mmol/L (22-30); Chloride 105 mmol/L (98-107); Estimated CRCL calculation 90 ml/min; Estimated Glomerular Filt Rate > 60; Glucose 130 mg/dL (75-110); Potassium 4.1 mmol/L (3.4-5.0); Sodium 141 mmol/L (137-145)
--- NOTE | 2020-05-01 19:11 | WPDANESEPPF ---
Anes - Initial Pre Proc Eval Procedure: Operation Date: 05/01/20 19:00 Proposed Procedures p Exploratory Laparotomy, Pos Bowel Resec - Antoni Pinon DO s Hemorrhoidectomy, Anal Rectal Procedure Rectal EUA - Antoni Pinon DO Date/Time: 05/01/20 19:11 Pre Op Diagnosis: constipated, unable to void Patient Data Age: 59 Gender: M Height: 1.8 m Weight: 81.6 kg Last Vital Signs Temp 36.6 C 05/01/20 15:01 Pulse 114 H 05/01/20 15:01 Resp 18 05/01/20 15:01 BP 130/83 05/01/20 15:01 Pulse Ox 98 05/01/20 15:01 Allergies Allergy/AdvReac Type Severity Reaction Status Date / Time Cultivated Oat Pollen Allergy Mild Itching Uncoded 12/07/19 19:01 Dust Allergy Mild Dyspnea / Uncoded 12/07/19 19:01 SOB Molds and Smuts Allergy Mild Itching Uncoded 12/07/19 19:01 Home Medications Medication Instructions Recorded Confirmed Type Odefsey 1 tablet PO DAILY 12/07/19 12/07/19 History lisinopril 20 mg PO DAILY 12/07/19 12/07/19 History metformin 500 mg PO DAILY 12/07/19 12/07/19 History pravastatin 20 mg PO DAILY 12/07/19 12/07/19 History sertraline 50 mg PO DAILY 12/07/19 12/07/19 History cephalexin 500 mg PO Q6H 7 Days #28 cap 12/11/19 Rx Laboratory Tests 05/01/20 05/01/20 05/01/20 17:47 17:47 17:47 WBC 4.7 K/mm3 K/mm3 (4.5-10.0) RBC 4.52 M/mm3 L M/mm3 (4.6-6.20) Hgb 14.6 g/dL g/dL (14.0-18.0) Hct 42.1 % % (42.0-52.0) MCV 93.1 fl fl (80-100) MCH 32.3 pg pg (26-34) MCHC 34.7 g/dl g/dl (32-36) RDW 12.4 % % (11.5-14.5) Plt Count 185 k/mm3 k/mm3 (150-375) MPV 9.6 fl fl (7.4-10.4) Immature Gran % (Auto) 0.6 % H % (0-0.5) Neut % (Auto) 52.3 % % (45.5-73.1) Lymph % (Auto) 35.8 % % (18.3-44.2) [place] % (Auto) 9.0 % H % (2.6-8.5) Eos % (Auto) 1.7 % % (0-4.4) Baso % (Auto) 0.6 % % (0.2-1.2) Lymph # (Auto) 1.67 K/mm3 K/mm3 (0.9-3.2) [place] # (Auto) 0.4 K/mm3 K/mm3 (0.1-0.6) Eos # (Auto) 0.1 K/mm3 K/mm3 (0-0.3) Baso # (Auto) 0.0 K/mm3 K/mm3 (0.0-0.1) Abs Immat Gran (auto) 0.03 K/mm3 K/mm3 (0.00-0.031) Absolute Neuts (auto) 2.4 K/mm3 K/mm3 (1.3-6.7) Absolute Nucleated RBC 0.0 K/mm3 K/mm3 (0.0-0.012) Nucleated RBC % 0.0 % % (0.0-0.2) PT 13.4 Seconds Seconds (11.1-14.7) INR 1.0 APTT 24.7 SECONDS SECONDS (22.3-36.8) Sodium 141 mmol/L mmol/L (137-145) Potassium 4.1 mmol/L mmol/L (3.4-5.0) Chloride 105 mmol/L mmol/L (98-107) Carbon Dioxide 30 mmol/L mmol/L (22-30) Anion Gap 6 mmol/L L mmol/L (8-16) BUN 17 mg/dL mg/dL (9-20) Creatinine 0.80 mg/dL mg/dL (0.7-1.3) Estim Creat Clear Calc 90 ml/min ml/min Estimated GFR > 60 (59 - ) Glucose 130 mg/dL H mg/dL (75-110) Calcium 8.9 mg/dL mg/dL (8.4-10.2) Total Bilirubin 0.6 mg/dL mg/dL (0.2-1.3) AST 28 U/L U/L (17-59) ALT 23 U/L U/L (4-50) Alkaline Phosphatase 71 U/L U/L (38-126) Total Protein 7.0 g/dL g/dL (6.3-8.2) Albumin 4.1 g/dL g/dL (3.5-5.1) Patient hx anesthesia problems: none Family hx anesthesia problems: none [facility] Past Medical History Medical History (Updated 05/01/20 @ 18:49 by Lolly Garrison PA-C) Arthritis Chronic neck and left shoulder pain Depression with anxiety Diabetes mellitus HIV (human immunodeficiency virus infection) Hypertension Peripheral neuropathy Surgical History Surgical History (Updated 12/08/19 @ 09:56 by Odilia Sanchez PA-C) H/O hand surgery Surgery to right hand after a fracture many years ago H/O neck surgery Around 2016 History of mandibular surgery Many years ago per patient Ilsa
--- NOTE | 2020-05-01 19:25 | WPDHPUPDATE1 ---
History and Physical Update Update Date/Time: 05/01/20 19:25 History and Physical has been reviewed, including an updated exam of the patient. There are NO changes in the patient's condition. Risks, benefits, and alternatives have been discussed and questions answered. Patient agrees to proceed with procedure.
--- NOTE | 2020-05-01 19:25 | PM.IMHP ---
H&P: HPI History of Present Illness Date/Time: 05/01/20 19:25 Chief Complaint: Foreign body in rectum Narrative: Montrell Huntley is a 59 year old male presents with a rectal foreign body. He presented to the ED this evening with complaints of pain and difficulty getting an object out of his rectum. He states that about 3 days ago he inserted a glass round egg. He has been unable to get this out since then. He denies any abdominal pain. He is having rectal pain. Review of Systems Review of Systems: All systems reviewed & are unremarkable except as noted in HPI and below Eyes: Eyes: Denies change in vision ENT: Denies hearing loss, Denies neck pain and Denies sore throat Cardiovascular: Cardiovascular: Denies chest pain and Denies dyspnea Respiratory: Respiratory: Denies cough, Denies dyspnea and Denies wheezing Genitourinary: Genitourinary: Denies hematuria and Denies dysuria Musculoskeletal: Musculoskeletal: Denies arthralgias, Denies joint swelling and Denies neck pain Allergic/Immunologic: Allergic/Immunologic: Denies wheezing PMFSH Past Medical History Medical History Arthritis Chronic neck and left shoulder pain Depression with anxiety Diabetes mellitus HIV (human immunodeficiency virus infection) Hypertension Peripheral neuropathy Surgical History Surgical History (Updated 05/01/20 @ 19:28 by Antoni Pinon DO) H/O hand surgery Surgery to right hand after a fracture many years ago H/O neck surgery Around 2017 History of mandibular surgery Many years ago per patient Hx of umbilical hernia repair Family History Family History Mother Diabetes mellitus Hypertension Myocardial infarct Hypercholesteremia Sibling Diabetes mellitus Myocardial infarct Sibling Diabetes mellitus Sibling Diabetes mellitus Sibling Diabetes mellitus Sibling Diabetes mellitus Myocardial infarct Father Lung cancer Social History Social History Social History: Mr. Huntley lives at home in [place] with his sister, Shyann. 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 He reports drinking around 2 to 3 beers per day on some days, some days none. He smokes marijuana daily for pain and anxiety. He denies other substance use. Never tobacco smoker. His PCP is Dr Juan Flores. He designates his sister, Shyann, to be his surrogate decision maker and he is full code status. Smoking status: Never smoker Alcohol intake: current Drinks per week: 8 Substance use: current Substance use type: marijuana Gender identity (if verbalized by the patient): Male Spiritual care concerns: No Meds Home Medications and Allergies Home Medications Medication Instructions Recorded Confirmed Type Odefsey 1 tablet PO DAILY 12/07/19 12/07/19 History lisinopril 20 mg PO DAILY 12/07/19 12/07/19 History metformin 500 mg PO DAILY 12/07/19 12/07/19 History pravastatin 20 mg PO DAILY 12/07/19 12/07/19 History sertraline 50 mg PO DAILY 12/07/19 12/07/19 History cephalexin 500 mg PO Q6H 7 Days #28 cap 12/11/19 Rx Allergies Allergy/AdvReac Type Severity Reaction Status Date / Time Cultivated Oat Pollen Allergy Mild Itching Uncoded 12/07/19 19:01 Dust Allergy Mild Dyspnea / Uncoded 12/07/19 19:01 SOB Molds and Smuts Allergy Mild Itching Uncoded 12/07/19 19:01 Vital Signs Vital Signs - 24 hr 05/01/20 15:01 Temperature 36.6 C Pulse Rate 114 H Respiratory Rate 18 Blood Pressure 130/83 Pulse Oximetry 98 Exam Const: General: alert; No acute distress Orientation/consciousness: patient oriented x3 Limitations: no limitations HENMT: Head: normocephalic and atraumatic Ears: hearing grossly normal bilaterally General nose exam: Normal external nose present and Normal nares present Mouth: Yes Normal or
[2020-05-01] MEDS: ceFAZolin SODIUM 1 GM VIAL 2 GM IV PUSH (20:29)
--- NOTE | 2020-05-01 22:21 | SUR.OPER ---
PT HAD REQUESTED FAMILY NOT BE UPDATED DURING SURGERY OR BY THE SURGEON AFTER SURGERY. PT STATES SISTER WAS AWARE OF HIS ER VISIT AND NEED FOR SURGICAL INTERVENTION BUT TO ONLY CALL IN AN EMERGENCY.
[2020-05-01] MEDS: metroNIDAZOLE 500 MG/ISO 100ML 500 MG/100 ML BAG 100 MG IVPB (23:03)
[2020-05-01 23:37] VITALS: BP 100/81; PULSE 87; RESP 20; TEMP 36.5; O2SAT 100
[2020-05-01] MEDS: LACTATED RINGERS 1,000 ML 30 ML IV CONT ×2 (23:37)
--- NOTE | 2020-05-01 23:41 | PM.PROC ---
Procedure Note - Detailed Date of procedure: 05/01/20 Pre-op diagnosis: Rectal Foreign Body Post-op diagnosis: same Procedure performed: 1. Rectal exam under anesthesia 2. Attempted removal of rectal foreign body 3. Exploratory laparotomy 4. Colotomy with removal of rectal foreign body 5. Sigmoid colectomy with end descending colostomy Description of procedure: Procedure as well as risks benefits and alternatives were discussed with the patient. Written consent was obtained and placed in chart prior to procedure. Patient was brought back to surgical suite. He was placed supine on operating table. IV sedation was administered by the Anesthesia Department. He was then placed in dorsal lithotomy position in stirrups. His perirectal area was prepped and draped in sterile fashion using Betadine prep. I initially performed a digital rectal exam and could easily palpate the solid object in the rectal vault. A carefully dilated the anus to further investigate the retained object. There was a hole in the bottom of the object which allowed me to place a [place] retractor and began gently delivering the object through the rectum. I was meeting resistance at the ischium. I placed the patient in further lithotomy position to try to open up the hips wide enough to deliver the object, but this was still unsuccessful. I then advanced a Lopez catheter around the object and insufflated some air above the object to prevent any suction as the object was retracted. This was still unsuccessful. I was then able to reposition the object to where the narrow point was now facing distally. I attempted to get my fingers up around the object to deliver it down beyond the rectal vault, but this was unsuccessful. I then also tried some manual palpation on his lower abdomen to help manipulate the object further down into the pelvis. After attempting this for over an hour, I then chose to convert to an exploratory laparotomy. The patient was intubated by the anesthesia department and his abdomen was prepped and draped in sterile fashion using chlorhexidine prep. His legs were put down lower in stirrups to where they were almost parallel with the abdomen. A 10 cm vertical midline incision was made in the lower abdomen using a 10 blade scalpel. Electrocautery was used for hemostasis and for dissection through Idalia's fascia. The linea alba was then incised using electrocautery. The peritoneum was then lifted anteriorly and was entered using electrocautery. I then inspected the abdominal cavity. The sigmoid colon appeared to be extremely dilated but no other abnormalities were noted on inspection. As I palpated down into the pelvis I was able to identify the solid object in the rectum. I attempted to push this further down the rectum along the sacral curve. The object still was not passing beyond the ischium. I repositioned the object again to where the open end was facing distally and I placed an [facility] retractor within the open end and attempted retracting from the rectum while pushing from above intra-abdominally. I also had my 1st emergency veterinary assistant moved down below and attempted having my 1st emergency veterinary assistant retracting well I was pushing with both hands intra-abdominally. I had to change my gloves multiple times to keep a sterile abdominal field. After further attempts manipulating the object further down into the rectum and out the anus, was still unsuccessful. I then attempted to manipulate the object proximally into the upper rectum and sigmoid colon, but the object would not advance beyond the sacral promontory. I tried this for a long period of time as well but was still unable to successfully advance it beyond the sacral promontory. The midline incision was extended further cephalad to allow more working room and adequate visualization. I then also placed a large Yomi wound protector. I then decided that I would have to open up the rectum to remove the object. A window was created
[2020-05-01] MEDS: HYDROmorphone HCL INJ (*CRX) 1 MG/ML SYR 0.5 MG IV PUSH ×3 (23:46→23:59)
[2020-05-01 23:50] VITALS: BP 103/54; PULSE 90; RESP 20; O2SAT 100
[2020-05-02] VITALS (12 sets, daily range): BP systolic 94–118; BP diastolic 57–71; PULSE 88–114; RESP 14–20; TEMP 36.4–37; O2SAT 95–100
[2020-05-02] MEDS: fentaNYL CITRATE INJ (*CRX) 100 MCG/2 ML VIAL 25 MCG IV PUSH ×4 (00:01→00:26)
[2020-05-02] MEDS: HYDROmorphone HCL INJ (*CRX) 1 MG/ML SYR 0.5 MG IV PUSH ×4 (00:08→13:06)
[2020-05-02 00:19] LABS: Glucose Point of Care 185 (65-105)
[2020-05-02] MEDS: LACTATED RINGERS 1,000 ML 100 ML IV CONT ×3 (01:35→22:00)
[2020-05-02 05:34] LABS: Basophils Percent Auto 0.1 % (0.2-1.2); Hematocrit 35.9 % (42.0-52.0); Hemoglobin 12.4 g/dL (14.0-18.0); Immature Granulocyte Absolute 0.02 K/mm3 (0.00-0.031); Immature Granulocyte Percent A 0.2 % (0-0.5); Lymphocytes Percent Auto 8.1 % (18.3-44.2); Mean Corpuscular HGB Conc 34.5 g/dl (32-36); Mean Corpuscular Volume 92.5 fl (80-100); Mean Platelet Volume 9.4 fl (7.4-10.4); Monocytes Absolute Auto 0.7 K/mm3 (0.1-0.6); Monocytes Percent Auto 7.6 % (2.6-8.5); Neutrophils Absolute Auto 7.2 K/mm3 (1.3-6.7); Platelet Count Result 154 k/mm3 (150-375); Red Blood Count 3.88 M/mm3 (4.6-6.20); White Blood Count 8.6 K/mm3 (4.5-10.0)
[2020-05-02 05:47] LABS: Anion Gap 5 mmol/L (8-16); Blood Urea Nitrogen 20 mg/dL (9-20); Calcium 7.9 mg/dL (8.4-10.2); Carbon Dioxide 28 mmol/L (22-30); Chloride 104 mmol/L (98-107); Estimated CRCL calculation 81 ml/min; Estimated Glomerular Filt Rate > 60; Glucose 201 mg/dL (75-110); Potassium 4.3 mmol/L (3.4-5.0); Sodium 137 mmol/L (137-145)
--- NOTE | 2020-05-02 08:05 | WPDANESPN ---
Anes - Prog Note Post-Op Date/Time: 05/02/20 08:05 Cardiovascular status: normal Respiratory status: normal Airway patency: baseline Mental status: baseline Post-Op hydration status: normal Vital Signs: Last Vital Signs Temp 36.4 C 05/02/20 04:23 Pulse 107 H 05/02/20 04:23 Resp 16 05/02/20 04:23 BP 104/65 05/02/20 04:23 Pulse Ox 97 05/02/20 04:23 Pain Score (VAS): 3 I/O: Intake & Output 05/01/20 05/02/20 05/02/20 23:59 07:59 15:59 Intake Total 360 Output Total 260 Balance 100 Laboratory Tests 05/02/20 05:06 05/02/20 05:06 05/01/20 05/01/20 05/01/20 17:47 17:47 17:47 WBC 4.7 RBC 4.52 L Hgb 14.6 Hct 42.1 MCV 93.1 MCH 32.3 MCHC 34.7 RDW 12.4 Plt Count 185 MPV 9.6 Immature Gran % (Auto) 0.6 H Neut % (Auto) 52.3 Lymph % (Auto) 35.8 [place] % (Auto) 9.0 H Eos % (Auto) 1.7 Baso % (Auto) 0.6 Lymph # (Auto) 1.67 [place] # (Auto) 0.4 Eos # (Auto) 0.1 Baso # (Auto) 0.0 Abs Immat Gran (auto) 0.03 Absolute Neuts (auto) 2.4 Absolute Nucleated RBC 0.0 Nucleated RBC % 0.0 PT 13.4 INR 1.0 APTT 24.7 Sodium 141 Potassium 4.1 Chloride 105 Carbon Dioxide 30 Anion Gap 6 L BUN 17 Creatinine 0.80 Estim Creat Clear Calc 90 Estimated GFR > 60 Glucose 130 H POC Capillary Glucose Calcium 8.9 Total Bilirubin 0.6 AST 28 ALT 23 Alkaline Phosphatase 71 Total Protein 7.0 Albumin 4.1 05/02/20 05/02/20 05/02/20 00:17 05:06 05:06 WBC 8.6 RBC 3.88 L Hgb 12.4 L Hct 35.9 L MCV 92.5 MCH 32.0 MCHC 34.5 RDW 12.0 Plt Count 154 MPV 9.4 Immature Gran % (Auto) 0.2 Neut % (Auto) 84.0 H Lymph % (Auto) 8.1 L [place] % (Auto) 7.6 Eos % (Auto) 0.0 Baso % (Auto) 0.1 L Lymph # (Auto) 0.70 L [place] # (Auto) 0.7 H Eos # (Auto) 0.0 Baso # (Auto) 0.0 Abs Immat Gran (auto) 0.02 Absolute Neuts (auto) 7.2 H Absolute Nucleated RBC 0.0 Nucleated RBC % 0.0 PT INR APTT Sodium 137 Potassium 4.3 Chloride 104 Carbon Dioxide 28 Anion Gap 5 L BUN 20 Creatinine 0.90 Estim Creat Clear Calc 81 Estimated GFR > 60 Glucose 201 H POC Capillary Glucose 185 H Calcium 7.9 L Total Bilirubin AST ALT Alkaline Phosphatase Total Protein Albumin Post-procedural complaints: none Patient Feedback: Patient satisfied with anesthetic care.
[2020-05-02] MEDS: ENOXAPARIN 40 MG/0.4 ML SYRINGE SUB-Q (08:33)
[2020-05-02 14:13] LABS: Add Urine Microscopic? YES; Amorphous Sediment Urine Few; Appearance Urine Clear (Clear); Bilirubin Urine Negative (Negative); Blood Urine 3+ (Negative); Color Urine Yellow (Yellow); Glucose Urine UA 1+ mg/dL (Negative); Ketones Urine Negative (Negative); Leukocyte Esterase Ur Negative LEU/UL (Negative); Mucus Urine Few /lpf; Nitrate Urine Negative (Negative); Protein Urine 2+ mg/dL (Negative); RBC Urine >75 /hpf (0-2); Urobilinogen Urine Negative mg/dL (<2.0)
--- NOTE | 2020-05-02 15:29 | PM.PNGS ---
Progress Note: A&P Assessment and Plan (1) Foreign body anus/rectum: Qualifiers: Encounter type: initial encounter Qualified Code(s): T18.5XXA - Foreign body in anus and rectum, initial encounter Code(s): T18.5XXA - Foreign body in anus and rectum, initial encounter Status: Acute Assessment and Plan: Continue NPO except ice chips today, possibly advance to clear liquids tomorrow if doing well Slowy increase activity Wound care nurse consult for ostomy teaching (2) HIV (human immunodeficiency virus infection): Qualifiers: HIV symptom status: unspecified Qualified Code(s): B20 - Human immunodeficiency virus [HIV] disease Code(s): B20 - Human immunodeficiency virus [HIV] disease Status: Chronic (3) Diabetes mellitus: Qualifiers: Diabetes mellitus complication status: without complication Diabetes mellitus terminal operator insulin use: without care home use Diabetes mellitus type: type 2 Qualified Code(s): E11.9 - Type 2 diabetes mellitus without complications Code(s): E11.9 - Type 2 diabetes mellitus without complications Status: Chronic Subjective Subjective Date/Time Seen: 05/02/20 15:29 Interval history: Pain controlled. No nausea or vomiting. Exam GI: Other: LLQ colostomy slightly dark with scant bloody output. Minimal shadowing on bandage at midline incision. Objective Data Vital Signs Vital Signs: Vital Signs - 24 hr 05/01/20 23:37 05/01/20 23:50 05/02/20 00:01 Temperature 36.5 C Pulse Rate 87 90 88 Respiratory Rate 20 20 14 Blood Pressure 100/81 103/54 L 109/71 Pulse Oximetry 100 100 100 05/02/20 00:15 05/02/20 00:30 05/02/20 00:54 Temperature 36.6 C Pulse Rate 91 98 102 H Respiratory Rate 20 20 18 Blood Pressure 104/67 96/57 L 118/66 Pulse Oximetry 100 100 100 05/02/20 01:09 05/02/20 01:39 05/02/20 02:39 Temperature 36.5 C 36.5 C 36.4 C Pulse Rate 103 H 101 H 104 H Respiratory Rate 16 18 16 Blood Pressure 113/65 103/61 94/63 L Pulse Oximetry 100 100 95 05/02/20 04:23 05/02/20 10:00 Temperature 36.4 C 36.7 C Pulse Rate 107 H 101 H Respiratory Rate 16 16 Blood Pressure 104/65 111/70 Pulse Oximetry 97 96 Intake/Output Intake/Output: Intake & Output 04/29/20 04/30/20 05/01/20 05/02/20 23:59 23:59 23:59 23:59 Intake Total 1360 Output Total 260 Balance 1100 Meds/Results Medications: Active Medications Generic Name Dose Route Start Last Admin Trade Name Freq PRN Reason Stop Dose Admin Enoxaparin Sodium 40 mg 05/02/20 09:00 05/02/20 08:33 Enoxaparin 40 Mg/0.4 Ml Syringe SUB-Q 40 mg DAILY MARCUS Administration Hydromorphone HCl 1 mg 05/02/20 00:39 Hydromorphone Hcl Inj (*Crx) 1 Mg/Ml Syr IV PUSH Q2H PRN Pain Rated 7-10 Hydromorphone HCl 0.5 mg 05/02/20 00:39 05/02/20 13:06 Hydromorphone Hcl Inj (*Crx) 1 Mg/Ml Syr IV PUSH 0.5 mg Q2H PRN Administration Pain Rated 4-6 Lactated Ringer's 1,000 mls @ 100 mls/hr 05/02/20 00:39 05/02/20 11:08 Lr - Lactated Ringers Iv IV CONT 100 mls/hr .Q10H MARCUS Administration Piperacillin/Tazobactam/Dextrose 3.375 gm in 50 mls @ 100 mls/hr 05/02/20 00:39 05/02/20 13:05 Zosyn 3.375 Gm/D5w 50ml Pm IVPB 100 mls/hr Q6HR MARCUS Administration Ondansetron HCl 4 mg 05/02/20 00:39 Ondansetron Inj 4 Mg/2 Ml Vial IV PUSH Q4H PRN Nausea And Vomiting Radiology Results: ITS Impressions Abdomen X-Ray 05/01/20 17:50 IMPRESSION: 1. Egg-shaped rectal foreign body. Surgical consultation is recommended. Labs Labs: Laboratory Results - last 24 hr 05/01/20 05/01/20 05/01/20 17:47 17:47 17:47 WBC 4.7 RBC 4.52 L Hgb 14.6 Hct 42.1 MCV 93.1 MCH 32.3 MCHC 34.7 RDW 12.4 Plt Count 185 MPV 9.6 Immature Gran % (Auto) 0.6 H Neut % (Auto) 52.3 Lymph % (Auto) 35.8 [place] % (Auto) 9.0 H Eos % (Auto) 1.7 Baso % (Auto) 0.6 Lym
--- NOTE | 2020-05-02 16:22 | PM.IMPN ---
Progress Note: A&P Assessment and Plan (1) Foreign body anus/rectum: Qualifiers: Encounter type: initial encounter Qualified Code(s): T18.5XXA - Foreign body in anus and rectum, initial encounter Code(s): T18.5XXA - Foreign body in anus and rectum, initial encounter Status: Acute Assessment and Plan: S/p extraction S/p colostomy Follow surgery recs Supportive care (2) Peripheral neuropathy: Code(s): G62.9 - Polyneuropathy, unspecified Status: Acute Assessment and Plan: Stable (3) HIV (human immunodeficiency virus infection): Qualifiers: HIV symptom status: unspecified Qualified Code(s): B20 - Human immunodeficiency virus [HIV] disease Code(s): B20 - Human immunodeficiency virus [HIV] disease Status: Chronic Assessment and Plan: On FARRAR Will re start Stable Continue to monitor Subjective Date/time seen: 05/02/20 16:22 I have some pain Review of Systems Review of Systems: Narrative: S/p colostomy Constitutional: Comments: no fevers, no rigors, no chills. Cardiovascular: Comments: no chest pain, no sob, no leg swelling Gastrointestinal: Comments: s/p colostomy Musculoskeletal: Comments: no joint pain. Integumentary/Breasts: Comments: no rashes Neurologic: Comments: no sensory motor deficit Exam Narrative: Exam Narrative: Lying in bed Const: General: cooperative, healthy appearing, comfortable, no acute distress, alert and awake Nutritional Appearance: average body habitus Orientation/consciousness: patient oriented x3 HENMT: Head: normal to inspection and normocephalic General nose exam: Normal external nose present Face and sinus: normal facial exam Eyes: General: appearance normal, both eyes and all related structures Pupils: Equal, round and reactive pupils present EOM: EOMs intact bilaterally Neck: Neck: no lymphadenopathy, supple and no JVD Resp: Effort & Inspection: able to speak in complete sentences Auscultation: clear to auscultation bilaterally Cardio: Jugular venous distension: no JVD Rate: regular rate Rhythm: regular rhythm GI: GI Palp: Yes Soft to palpation and Yes No hepatosplenomegaly present Skin: Wounds: wounds noted (Colostomy and midline surgeical wound) Neuro: General: patient oriented x3 and CN's II-XI intact bilaterally Cranial nerves: Yes CN's II-XII intact bilaterally and Yes Equal, round and reactive pupils present Cognition (Neuro): normal cognition Speech: normal speech Motor exam (neuro): 5/5 motor strength present throughout Extrem: General: no pedal edema Objective Data Vital Signs Vital Signs: Vital Signs - 24 hr 05/01/20 23:37 05/01/20 23:50 05/02/20 00:01 Temperature 97.7 F Pulse Rate 87 90 88 Respiratory Rate 20 20 14 Blood Pressure 100/81 103/54 L 109/71 Pulse Oximetry 100 100 100 05/02/20 00:15 05/02/20 00:30 05/02/20 00:54 Temperature 97.8 F Pulse Rate 91 98 102 H Respiratory Rate 20 20 18 Blood Pressure 104/67 96/57 L 118/66 Pulse Oximetry 100 100 100 05/02/20 01:09 05/02/20 01:39 05/02/20 02:39 Temperature 97.7 F 97.7 F 97.6 F Pulse Rate 103 H 101 H 104 H Respiratory Rate 16 18 16 Blood Pressure 113/65 103/61 94/63 L Pulse Oximetry 100 100 95 05/02/20 04:23 05/02/20 10:00 Temperature 97.6 F 98.0 F Pulse Rate 107 H 101 H Respiratory Rate 16 16 Blood Pressure 104/65 111/70 Pulse Oximetry 97 96 Intake/Output Intake/Output: Intake & Output 04/29/20 04/30/20 05/01/20 05/02/20 23:59 23:59 23:59 23:59 Intake Total 1360 Output Total 260 Balance 1100 Meds/Results Medications: Active Medications Generic Name Dose Route Start Last Admin Trade Name Danielq PRN Reason Stop Dose Admin Enoxaparin Sodium 40 mg 05/02/20 09:00 05/02/20 08:33 Enoxaparin 40 Mg/0.4 Ml Syringe SUB-Q 40 mg DAILY MARCUS Administration Hydromorphone HCl 1 mg 05/02/20 00:39 Hydromorphone Hcl Inj (*Crx) 1 Mg/Ml Syr IV PU
[2020-05-02] MEDS: HYDROmorphone HCL INJ (*CRX) 1 MG/ML SYR IV PUSH ×3 (16:35→21:59)
[2020-05-02] MEDS: ONDANSETRON INJ 4 MG/2 ML VIAL IV PUSH ×2 (16:38→21:59)
[2020-05-03] MEDS: HYDROmorphone HCL INJ (*CRX) 1 MG/ML SYR IV PUSH ×6 (00:49→18:56)
[2020-05-03 02:12] VITALS: BP 109/72; PULSE 114; RESP 16; TEMP 36.8; O2SAT 94
[2020-05-03 05:10] VITALS: BP 115/66; PULSE 119; RESP 16; TEMP 36.7; O2SAT 96
[2020-05-03] MEDS: ENOXAPARIN 40 MG/0.4 ML SYRINGE SUB-Q (08:22)
[2020-05-03 09:55] VITALS: BP 121/78; PULSE 106; RESP 20; TEMP 36.3; O2SAT 98
--- NOTE | 2020-05-03 10:21 | PM.PNGS ---
Progress Note: A&P Assessment and Plan (1) Foreign body anus/rectum: Qualifiers: Encounter type: initial encounter Qualified Code(s): T18.5XXA - Foreign body in anus and rectum, initial encounter Code(s): T18.5XXA - Foreign body in anus and rectum, initial encounter Status: Acute Assessment and Plan: Start clear liquids today increase activity Ostomy teaching (2) HIV (human immunodeficiency virus infection): Qualifiers: HIV symptom status: unspecified Qualified Code(s): B20 - Human immunodeficiency virus [HIV] disease Code(s): B20 - Human immunodeficiency virus [HIV] disease Status: Chronic Subjective Subjective Date/Time Seen: 05/03/20 10:21 Interval history: Having some gas in ostomy bag. Pain controlled. No nausea/vomiting. Exam GI: Other: LLQ colostomy slightly dark with scant bloody output. Minimal shadowing on bandage at midline incision. Objective Data Vital Signs Vital Signs: Vital Signs - 24 hr 05/02/20 14:00 05/02/20 18:00 05/02/20 22:00 Temperature 36.8 C 37.0 C 36.8 C Pulse Rate 105 H 111 H 114 H Respiratory Rate 14 16 16 Blood Pressure 106/64 118/68 112/70 Pulse Oximetry 97 97 95 05/03/20 02:12 05/03/20 05:10 Temperature 36.8 C 36.7 C Pulse Rate 114 H 119 H Respiratory Rate 16 16 Blood Pressure 109/72 115/66 Pulse Oximetry 94 96 Intake/Output Intake/Output: Intake & Output 04/30/20 05/01/20 05/02/20 05/03/20 23:59 23:59 23:59 23:59 Intake Total 2460 640 Output Total 585 300 Balance 1875 340 Meds/Results Medications: Active Medications Generic Name Dose Route Start Last Admin Trade Name Freq PRN Reason Stop Dose Admin Enoxaparin Sodium 40 mg 05/02/20 09:00 05/03/20 08:22 Enoxaparin 40 Mg/0.4 Ml Syringe SUB-Q 40 mg DAILY MARCUS Administration Hydromorphone HCl 1 mg 05/02/20 00:39 05/03/20 08:22 Hydromorphone Hcl Inj (*Crx) 1 Mg/Ml Syr IV PUSH 1 mg Q2H PRN Administration Pain Rated 7-10 Hydromorphone HCl 0.5 mg 05/02/20 00:39 05/02/20 13:06 Hydromorphone Hcl Inj (*Crx) 1 Mg/Ml Syr IV PUSH 0.5 mg Q2H PRN Administration Pain Rated 4-6 Lactated Ringer's 1,000 mls @ 100 mls/hr 05/02/20 00:39 05/03/20 06:47 Lr - Lactated Ringers Iv IV CONT 100 mls/hr .Q10H MARCUS Infusion Piperacillin/Tazobactam/Dextrose 3.375 gm in 50 mls @ 100 mls/hr 05/02/20 00:39 05/03/20 07:10 Zosyn 3.375 Gm/D5w 50ml Pm IVPB Infused Q6HR MARCUS Infusion Ondansetron HCl 4 mg 05/02/20 00:39 05/02/20 21:59 Ondansetron Inj 4 Mg/2 Ml Vial IV PUSH 4 mg Q4H PRN Administration Nausea And Vomiting Radiology Results: ITS Impressions Abdomen X-Ray 05/01/20 17:50 IMPRESSION: 1. Egg-shaped rectal foreign body. Surgical consultation is recommended. Labs Labs: Laboratory Results - last 24 hr 05/02/20 13:53 Urine Color Yellow Urine Appearance Clear Urine pH 5.0 Ur Specific [place] 1.040 H Urine Protein 2+ H Urine Glucose (UA) 1+ H Urine Ketones Negative Ur Blood (Man) 3+ H Urine Nitrate Negative Urine Bilirubin Negative Urine Urobilinogen Negative Leukocyte Esterase Rfl Negative Urine RBC >75 H Urine WBC 10-15 H Amorphous Sediment Few H Hyaline Casts 5-9 H Urine Mucus Few H
[2020-05-03] MEDS: ACETAMINOPHEN 500 MG TABLET 1000 MG PO ×3 (12:47→23:40)
[2020-05-03 14:35] VITALS: BP 123/79; PULSE 110; RESP 16; TEMP 36.7; O2SAT 100
[2020-05-03] MEDS: ONDANSETRON INJ 4 MG/2 ML VIAL IV PUSH (17:21)
--- NOTE | 2020-05-03 17:51 | PM.IMPN ---
Progress Note: A&P Assessment and Plan (1) Foreign body anus/rectum: Qualifiers: Encounter type: initial encounter Qualified Code(s): T18.5XXA - Foreign body in anus and rectum, initial encounter Code(s): T18.5XXA - Foreign body in anus and rectum, initial encounter Status: Acute Assessment and Plan: S/p surgical excision by exploratory laparotomy Colostomy in place Local care Incentive spirometry Post op day 2 Appreciate surgery note (2) HIV (human immunodeficiency virus infection): Qualifiers: HIV symptom status: unspecified Qualified Code(s): B20 - Human immunodeficiency virus [HIV] disease Code(s): B20 - Human immunodeficiency virus [HIV] disease Status: Chronic Assessment and Plan: On FARRAR Will re start once ok for po intake (3) Diabetes mellitus: Qualifiers: Diabetes mellitus complication status: without complication Diabetes mellitus detention insulin use: without detention use Diabetes mellitus type: type 2 Qualified Code(s): E11.9 - Type 2 diabetes mellitus without complications Code(s): E11.9 - Type 2 diabetes mellitus without complications Status: Chronic Assessment and Plan: Continue to monitor On no meds Diet controlled (4) Hypertension: Code(s): I10 - Essential (primary) hypertension Status: Chronic Assessment and Plan: Well controlled. (5) Peripheral neuropathy: Code(s): G62.9 - Polyneuropathy, unspecified Status: Acute Assessment and Plan: On no meds Likely secondary to retroviral therapy Continue to monitor Subjective Date/time seen: 05/03/20 17:51 Having some pain Review of Systems Review of Systems: Narrative: Abdominal pain. Constitutional: Comments: no fevers, no rigors, no chills. Cardiovascular: Comments: no chest pain, no pnd, no orthopnea. Respiratory: Comments: no sob, no cough, no sputum production Gastrointestinal: Comments: s/p colostomy, abdominal surgical wound. Musculoskeletal: Comments: no joint pain. Integumentary/Breasts: Comments: no rashes Neurologic: Comments: no sensory motor deficit Exam Narrative: Exam Narrative: Sitting in chair. Const: General: healthy appearing, comfortable, no acute distress, alert, awake and Physically active Nutritional Appearance: well nourished Orientation/consciousness: patient oriented x3 HENMT: Head: normal to inspection and normocephalic Ears: hearing grossly normal bilaterally General nose exam: Normal external nose present Face and sinus: normal facial exam Eyes: General: appearance normal, both eyes and all related structures Pupils: Equal, round and reactive pupils present EOM: EOMs intact bilaterally Neck: Neck: no lymphadenopathy, supple and no JVD Resp: Effort & Inspection: able to speak in complete sentences Auscultation: clear to auscultation bilaterally Cardio: Jugular venous distension: no JVD Rate: regular rate Rhythm: regular rhythm GI: Inspection: other (colostomy in place, midline incision misa in place.) GI Palp: Yes Soft to palpation and Yes No hepatosplenomegaly present Skin: Rashes: no rashes Wounds: wounds noted (surgical wound in abdomen.) Neuro: General: patient oriented x3 and CN's II-XI intact bilaterally Cranial nerves: Yes CN's II-XII intact bilaterally and Yes Equal, round and reactive pupils present Cognition (Neuro): normal cognition Speech: normal speech Gait exam (Neuro): Normal gait present Motor exam (neuro): 5/5 motor strength present throughout Extrem: General: no pedal edema Objective Data Vital Signs Vital Signs: Vital Signs - 24 hr 05/02/20 18:00 05/02/20 22:00 05/03/20 02:12 Temperature 98.6 F 98.3 F 98.3 F Pulse Rate 111 H 114 H 114 H Respiratory Rate 16 16 16 Blood Pressure 118/68 112/70 109/72 Pulse Oximetry 97 95 94 05/03/20 05:10 05/03/20 09:55 05/03/20 14:35 Temperature 98.0 F 97.3 F L 98.1 F Pulse Rate 1
[2020-05-03 18:00] VITALS: BP 123/62; PULSE 110; RESP 14; TEMP 37.1; O2SAT 96
[2020-05-03 21:55] VITALS: BP 109/63; PULSE 102; RESP 18; TEMP 36.5; O2SAT 95
[2020-05-04] VITALS (8 sets, daily range): BP systolic 106–151; BP diastolic 59–81; PULSE 83–110; RESP 14–20; TEMP 36.6–37.3; O2SAT 95–99
[2020-05-04] MEDS: HYDROmorphone HCL INJ (*CRX) 1 MG/ML SYR 0.5 MG IV PUSH ×4 (01:11→15:17)
[2020-05-04] MEDS: ONDANSETRON INJ 4 MG/2 ML VIAL IV PUSH ×4 (05:26→22:26)
[2020-05-04 05:53] LABS: Hematocrit 29.1 % (42.0-52.0); Hemoglobin 9.9 g/dL (14.0-18.0); Immature Platelet Fraction Pct 3.3 % (0.9-11.2); Mean Corpuscular Hemoglobin 32.4 pg (26-34); Mean Corpuscular Volume 95.1 fl (80-100); Mean Platelet Volume 9.9 fl (7.4-10.4); Platelet Count Result 147 k/mm3 (150-375); Red Blood Count 3.06 M/mm3 (4.6-6.20)
[2020-05-04 06:16] LABS: Anion Gap 0 mmol/L (8-16); Blood Urea Nitrogen 14 mg/dL (9-20); Calcium 7.9 mg/dL (8.4-10.2); Carbon Dioxide 31 mmol/L (22-30); Chloride 101 mmol/L (98-107); Estimated CRCL calculation 81 ml/min; Estimated Glomerular Filt Rate > 60; Glucose 120 mg/dL (75-110); Potassium 3.7 mmol/L (3.4-5.0); Sodium 132 mmol/L (137-145)
[2020-05-04] MEDS: ACETAMINOPHEN 500 MG TABLET 1000 MG PO (06:20)
[2020-05-04] MEDS: ENOXAPARIN 40 MG/0.4 ML SYRINGE SUB-Q (08:21)
--- NOTE | 2020-05-04 11:56 | PM.PNGS ---
Progress Note: A&P Assessment and Plan (1) Foreign body anus/rectum: Qualifiers: Encounter type: initial encounter Qualified Code(s): T18.5XXA - Foreign body in anus and rectum, initial encounter Code(s): T18.5XXA - Foreign body in anus and rectum, initial encounter Status: Acute Assessment and Plan: Advance to full liquids today Start MiraLax daily Await improved ostomy output (2) HIV (human immunodeficiency virus infection): Qualifiers: HIV symptom status: unspecified Qualified Code(s): B20 - Human immunodeficiency virus [HIV] disease Code(s): B20 - Human immunodeficiency virus [HIV] disease Status: Chronic Subjective Subjective Date/Time Seen: 05/04/20 11:56 Patient reports: afebrile Interval history: Tolerating clears. No nausea/vomiting. Still minimal ostomy output. Exam GI: Other: LLQ colostomy slightly dark with scant bloody output. Incision clean, dry, intact. Objective Data Vital Signs Vital Signs: Vital Signs - 24 hr 05/03/20 14:35 05/03/20 18:00 05/03/20 21:55 Temperature 36.7 C 37.1 C 36.5 C Pulse Rate 110 H 110 H 102 H Respiratory Rate 16 14 18 Blood Pressure 123/79 123/62 109/63 Pulse Oximetry 100 96 95 05/04/20 02:00 05/04/20 05:00 05/04/20 10:57 Temperature 36.7 C 36.7 C 36.6 C Pulse Rate 83 96 97 Respiratory Rate 18 20 20 Blood Pressure 106/59 L 109/62 111/65 Pulse Oximetry 95 97 96 05/04/20 11:16 Temperature Pulse Rate 87 Respiratory Rate Blood Pressure Pulse Oximetry 96 Intake/Output Intake/Output: Intake & Output 05/01/20 05/02/20 05/03/20 05/04/20 23:59 23:59 23:59 23:59 Intake Total 2460 2710 760 Output Total 585 825 410 Balance 1875 1885 350 Meds/Results Medications: Active Medications Generic Name Dose Route Start Last Admin Trade Name Freq PRN Reason Stop Dose Admin Acetaminophen 650 mg 05/04/20 11:56 Acetaminophen 325 Mg Tablet PO Q6H PRN Mild Pain (1-3) or Fever Hydrocodone Bitart/Acetaminophen 1 tab 05/04/20 11:55 Hydrocodone/Acetaminophen (*Crx) 5-325 Mg Tablet PO Q4H PRN Pain Rated 4-6 Hydrocodone Bitart/Acetaminophen 1 tab 05/04/20 11:55 Hydrocodone/Acetaminophen (*Crx) 10-325 Mg Tablet PO Q4H PRN Pain Rated 7-10 Enoxaparin Sodium 40 mg 05/02/20 09:00 05/04/20 08:21 Enoxaparin 40 Mg/0.4 Ml Syringe SUB-Q 40 mg DAILY MARCUS Administration Hydromorphone HCl 1 mg 05/02/20 00:39 05/03/20 18:56 Hydromorphone Hcl Inj (*Crx) 1 Mg/Ml Syr IV PUSH 1 mg Q2H PRN Administration Pain Rated 7-10 Hydromorphone HCl 0.5 mg 05/02/20 00:39 05/04/20 09:53 Hydromorphone Hcl Inj (*Crx) 1 Mg/Ml Syr IV PUSH 0.5 mg Q2H PRN Administration Pain Rated 4-6 Piperacillin/Tazobactam/Dextrose 3.375 gm in 50 mls @ 100 mls/hr 05/02/20 00:39 05/04/20 06:50 Zosyn 3.375 Gm/D5w 50ml Pm IVPB Infused Q6HR MARCUS Infusion Ondansetron HCl 4 mg 05/02/20 00:39 05/04/20 09:53 Ondansetron Inj 4 Mg/2 Ml Vial IV PUSH 4 mg Q4H PRN Administration Nausea And Vomiting Radiology Results: ITS Impressions Abdomen X-Ray 05/01/20 17:50 IMPRESSION: 1. Egg-shaped rectal foreign body. Surgical consultation is recommended. Labs Labs: Laboratory Results - last 24 hr 05/04/20 05/04/20 05:15 05:15 WBC 6.0 RBC 3.06 L Hgb 9.9 L Hct 29.1 L MCV 95.1 MCH 32.4 MCHC 34.0 RDW 12.0 Plt Count 147 L MPV 9.9 % Immature Plt Fraction 3.3 Sodium 132 L Potassium 3.7 Chloride 101 Carbon Dioxide 31 H Anion Gap 0 L BUN 14 D Creatinine 0.90 Estim Creat Clear Calc 81 Estimated GFR > 60 Glucose 120 H Calcium 7.9 L
[2020-05-04] MEDS: polyethylene glycoL 3350 17 GM POWD.PACK PO (12:16)
[2020-05-04] MEDS: HYDROcodone/acetaminophen (*CRX) 10-325 MG TABLET 1 TAB PO ×2 (12:21→18:28)
--- NOTE | 2020-05-04 12:30 | PM.IMPN ---
Progress Note: A&P Assessment and Plan (1) Foreign body anus/rectum: Qualifiers: Encounter type: initial encounter Qualified Code(s): T18.5XXA - Foreign body in anus and rectum, initial encounter Code(s): T18.5XXA - Foreign body in anus and rectum, initial encounter Status: Acute Assessment and Plan: S/p excision by surgery Exploratory laparotomy Advance to full liquids today Supportive care Follow surgery recs. 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 Supportive care Subjective Date/time seen: 05/04/20 12:30 States that has some soreness in his abdomen. Review of Systems Review of Systems: Narrative: No new issues. Constitutional: Comments: no fevers, no rigors, no chills. Cardiovascular: Comments: no chest pain, no pnd, no orthopnea. Respiratory: Comments: o cough, no sob. Gastrointestinal: Comments: soreness in the surgical site. Musculoskeletal: Comments: no joint pain. Integumentary/Breasts: Comments: no rashes. Neurologic: Comments: no sensory motor deficit Exam Narrative: Exam Narrative: Sitting in bed. Const: General: cooperative, healthy appearing, comfortable, no acute distress, alert, awake and Physically active Nutritional Appearance: well nourished Orientation/consciousness: patient oriented x3 HENMT: Head: normal to inspection and normocephalic Ears: hearing grossly normal bilaterally General nose exam: Normal external nose present Face and sinus: normal facial exam Eyes: General: appearance normal, both eyes and all related structures Pupils: Equal, round and reactive pupils present EOM: EOMs intact bilaterally Neck: Neck: supple and no JVD Resp: Effort & Inspection: normal respiratory effort and able to speak in complete sentences Auscultation: clear to auscultation bilaterally Cardio: Jugular venous distension: no JVD Heart sounds: S1 normal heart sound present and S2 normal heart sound present GI: Inspection: other (mid line surgical wound, colostomy in place.) GI Palp: Yes Soft to palpation and Yes No hepatosplenomegaly present Skin: Wounds: wounds noted (midline abdomen surgical wound, colostomy in place.) Neuro: General: patient oriented x3 and CN's II-XI intact bilaterally Cranial nerves: Yes CN's II-XII intact bilaterally, Yes Equal, round and reactive pupils present and Yes Bilaterally intact EOM present Cognition (Neuro): normal cognition Speech: normal speech Motor exam (neuro): 5/5 motor strength present throughout Extrem: General: full ROM and no pedal edema Objective Data Vital Signs Vital Signs: Vital Signs - 24 hr 05/03/20 14:35 05/03/20 18:00 05/03/20 21:55 Temperature 98.1 F 98.7 F 97.7 F Pulse Rate 110 H 110 H 102 H Respiratory Rate 16 14 18 Blood Pressure 123/79 123/62 109/63 Pulse Oximetry 100 96 95 05/04/20 02:00 05/04/20 05:00 05/04/20 10:57 Temperature 98.0 F 98.0 F 97.8 F Pulse Rate 83 96 97 Respiratory Rate 18 20 20 Blood Pressure 106/59 L 109/62 111/65 Pulse Oximetry 95 97 96
--- NOTE | 2020-05-04 12:31 | P.CDI_ITS ---
CDI Query Clarification Request -05/01 H&H 14.6/42.1 3/2 H&H 12.4/35.9 3/4 H&H 9.9/29.1 -05/01 documented EBL during OR Total blood loss was 550 mL which was also significantly more than expected Please clarify if there is a possible corresponding diagnosis for above findings: * Acute blood loss anemia * Acute Anemia of other cause * Not clinically significant * Unable to determine <Tanya Sanchez RN - Last Filed: 05/04/20 12:41> Clarified Diagnosis (1) Acute blood loss anemia: Code(s): D62 - Acute posthemorrhagic anemia <Tanya Sanchez RN - Last Filed: 05/04/20 12:41> Status: Acute <Tanya Sanchez RN - Last Filed: 05/04/20 12:41> Assessment and Plan: Secondary to surgery. Continue to monitor No need for transfusion at this point <Anamika Rhodes MD - Last Filed: 05/04/20 12:45>
[2020-05-05 02:00] VITALS: BP 117/71; PULSE 109; RESP 18; TEMP 36.6; O2SAT 98
[2020-05-05 05:06] VITALS: BP 127/72; PULSE 91; RESP 18; TEMP 36.5; O2SAT 98
[2020-05-05] MEDS: ENOXAPARIN 40 MG/0.4 ML SYRINGE SUB-Q (08:33)
[2020-05-05] MEDS: PRAVASTATIN SODIUM 20 MG TABLET PO (08:33)
[2020-05-05] MEDS: SERTRALINE HCL 50 MG TABLET PO (08:33)
[2020-05-05] MEDS: polyethylene glycoL 3350 17 GM POWD.PACK PO (08:33)
[2020-05-05] MEDS: lisinopriL 20 MG TABLET PO (08:33)
--- NOTE | 2020-05-05 12:47 | PM.PNGS ---
Progress Note: A&P Assessment and Plan (1) Foreign body anus/rectum: Qualifiers: Encounter type: initial encounter Qualified Code(s): T18.5XXA - Foreign body in anus and rectum, initial encounter Code(s): T18.5XXA - Foreign body in anus and rectum, initial encounter Status: Acute Assessment and Plan: Will keep on full liquids today Continue MiraLax daily Remove Lopez catheter Await improved ostomy output Encouraged ambulating in the halls, increased activity, and IS use (2) HIV (human immunodeficiency virus infection): Qualifiers: HIV symptom status: unspecified Qualified Code(s): B20 - Human immunodeficiency virus [HIV] disease Code(s): B20 - Human immunodeficiency virus [HIV] disease Status: Chronic Additional Plan Discussed plan of care with Dr. Pinon. Subjective Subjective Date/Time Seen: 05/05/20 12:47 Post Op day: 4 Patient reports: tolerating liquids well (this am) and nausea (overnight) Interval history: Reports nausea overnight, he felt started after taking a [place]. No vomiting. Reports the nausea has resolved into this morning and he is trying a full liquid diet today. Reports some gas coming into the ostomy bag this morning after walking the halls. Abdominal pain is well controlled. No other complaints. Still not much output from ostomy. Review of Systems Review of Systems: All systems reviewed & are unremarkable except as noted in HPI and below Cardiovascular: Cardiovascular: Reports no additional cardiovascular complaints, Denies chest pain and Denies leg edema Respiratory: Respiratory: Reports no additional respiratory complaints, Denies cough and Denies dyspnea Gastrointestinal: Gastrointestinal: Reports as per HPI and Reports no additional gastrointestinal complaints Exam Const: General: comfortable, no acute distress, alert and awake Orientation/consciousness: patient oriented x3 GI: Inspection: incision (Midline incision, misa intact, no drainage or signs of infection) and other (mildly distended) GI Palp: Yes Soft to palpation and Yes Tenderness to palpation present (GI) (incisional) Auscultation: normal bowel sounds Other: LLQ colostomy with dark pink stoma and scant bloody output, not much gas in the bag on exam. Midline incision clean, dry, misa intact. Skin: General skin exam: normal color Rashes: no rashes Neuro: General: moves all extremities and no focal motor deficits Cranial nerves: Yes CN's II-XII intact bilaterally Speech: normal speech Extrem: General: no clubbing, cyanosis or edema and no calf tenderness Psych: Mental Status: mental status grossly normal Attitude: cooperative Objective Data Vital Signs Vital Signs: Vital Signs - 24 hr 05/04/20 14:00 05/04/20 18:00 05/04/20 20:17 Temperature 98.4 F 99.1 F 98.6 F Pulse Rate 102 H 104 H 110 H Respiratory Rate 14 16 18 Blood Pressure 124/71 138/81 151/76 H Pulse Oximetry 99 96 98 05/04/20 22:52 05/05/20 02:00 05/05/20 05:06 Temperature 97.8 F 97.7 F Pulse Rate 109 H 91 Respiratory Rate 18 18 Blood Pressure 117/71 127/72 Pulse Oximetry 97 98 98 Intake/Output Intake/Output: Intake & Output 05/02/20 05/03/20 05/04/20 05/05/20 23:59 23:59 23:59 23:59 Intake Total 2460 2710 2080 490 Output Total 690 281 1199 1210 Balance 1875 1885 845 -720 Meds/Results Medications: Active Medications Generic Name Dose Route Start Last Admin Trade Name Freq PRN Reason Stop Dose Admin Acetaminophen 650 mg 05/04/20 11:56 Acetaminophen 325 Mg Tablet PO Q6H PRN Mild Pain (1-3) or Fever Hydrocodone Bitart/Acetaminophen 1 tab 05/04/20 11:55 Hydrocodone/Acetaminophen (*Crx) 5-325 Mg Tablet PO Q4H PRN Pain Rated 4-6 Hydrocodone Bitart/Acetaminophen 1 tab 05/04/20 11:55 05/04/20 18:28 Hydrocodone/Acetaminophen (*Crx) 10-325 Mg Tablet PO 1 tab Q4H PRN Administration Pain Rated 7-10 Enoxaparin Sodium 40
[2020-05-05 14:00] VITALS: BP 129/74; PULSE 101; RESP 14; TEMP 36.6; O2SAT 99
--- NOTE | 2020-05-05 16:00 | PM.IMPN ---
Progress Note: A&P Assessment and Plan (1) Foreign body anus/rectum: Qualifiers: Encounter type: initial encounter Qualified Code(s): T18.5XXA - Foreign body in anus and rectum, initial encounter Code(s): T18.5XXA - Foreign body in anus and rectum, initial encounter Status: Acute Assessment and Plan: S/p surgical removal Colostomy in place Advance diet as tolerated Appreciate surgery note (2) Acute blood loss anemia: Code(s): D62 - Acute posthemorrhagic anemia Status: Acute Assessment and Plan: Secondary to sugery Unexpected blood loss No overt bleeding Stable Continue to monitor (3) Depression with anxiety: Code(s): F41.8 - Other specified anxiety disorders Status: Chronic Assessment and Plan: Stable Follow up in the outpatient setting (4) HIV (human immunodeficiency virus infection): Qualifiers: HIV symptom status: unspecified Qualified Code(s): B20 - Human immunodeficiency virus [HIV] disease Code(s): B20 - Human immunodeficiency virus [HIV] disease Status: Chronic Assessment and Plan: On FARRAR but currently med is at his house Will seek other alternatives if needed anticipate patient will be discharging soon. (5) Diabetes mellitus: Qualifiers: Diabetes mellitus complication status: without complication Diabetes mellitus fci insulin use: without fci use Diabetes mellitus type: type 2 Qualified Code(s): E11.9 - Type 2 diabetes mellitus without complications Code(s): E11.9 - Type 2 diabetes mellitus without complications Status: Chronic Assessment and Plan: Diet controlled Continue to monitor (6) Hypertension: Code(s): I10 - Essential (primary) hypertension Status: Chronic Assessment and Plan: Well controlled Continue to monitor (7) Peripheral neuropathy: Code(s): G62.9 - Polyneuropathy, unspecified Status: Acute Assessment and Plan: Likely secondary to FARRAR/Diabetes Continue to monitor Subjective Date/time seen: 05/05/20 16:00 Patient states that has heart burn and gas some soreness as well. Review of Systems Review of Systems: Narrative: soreness in the surgical site, heart burn. Constitutional: Comments: no fevers, no rigors, no chills. Cardiovascular: Comments: no chest pain, no pnd, no orhtopnea Respiratory: Comments: no cough, no sputum production Gastrointestinal: Comments: heartburn, abdominal discomfort. Musculoskeletal: Comments: no joint pain. Integumentary/Breasts: Comments: no rashes. Neurologic: Comments: no sensory motor deficit. Exam Narrative: Exam Narrative: Sitting in chair. Const: General: healthy appearing, comfortable, no acute distress, alert, awake and Physically active Nutritional Appearance: well nourished Orientation/consciousness: patient oriented x3 HENMT: Head: normal to inspection and normocephalic Ears: hearing grossly normal bilaterally General nose exam: Normal external nose present Face and sinus: normal facial exam Eyes: General: appearance normal, both eyes and all related structures Pupils: Equal, round and reactive pupils present EOM: EOMs intact bilaterally Neck: Neck: no lymphadenopathy, supple and no JVD Lymphatic: no lymphadenopathy noted Resp: Effort & Inspection: able to speak in complete sentences Auscultation: clear to auscultation bilaterally Cardio: Jugular venous distension: no JVD Rate: regular rate Rhythm: regular rhythm GI: Inspection: other (miod abdominal surgical wound.) GI Palp: Yes Soft to palpation and Yes No hepatosplenomegaly present Skin: Wounds: wounds noted (Skin sough of at colostomy bag attachement site) Neuro: General: patient oriented x3 and CN's II-XI intact bilaterally Cranial nerves: Yes CN's II-XII intact bilaterally, Yes Equal, round and reactive pupils present and Yes Bilaterally intact EOM present Cognition (Neuro): n
[2020-05-05] MEDS: SUCRALFATE SUSP 100 MG/ML 10 ML UDC 1000 MG PO ×2 (17:59→21:01)
[2020-05-05 21:28] VITALS: BP 133/85; PULSE 100; RESP 16; TEMP 36.7; O2SAT 99
[2020-05-06 05:16] VITALS: BP 137/81; PULSE 73; RESP 16; TEMP 36.3; O2SAT 98
[2020-05-06] MEDS: SUCRALFATE SUSP 100 MG/ML 10 ML UDC 1000 MG PO ×4 (05:30→20:36)
[2020-05-06] MEDS: PRAVASTATIN SODIUM 20 MG TABLET PO (08:30)
[2020-05-06] MEDS: lisinopriL 20 MG TABLET PO (08:30)
[2020-05-06] MEDS: ENOXAPARIN 40 MG/0.4 ML SYRINGE SUB-Q (08:30)
[2020-05-06] MEDS: SERTRALINE HCL 50 MG TABLET PO (08:30)
--- NOTE | 2020-05-06 10:45 | PM.PNGS ---
Progress Note: A&P Assessment and Plan (1) Foreign body anus/rectum: Qualifiers: Encounter type: initial encounter Qualified Code(s): T18.5XXA - Foreign body in anus and rectum, initial encounter Code(s): T18.5XXA - Foreign body in anus and rectum, initial encounter Status: Acute Assessment and Plan: Ostomy functioning. Will advance to regular diabetic diet today. Possibly home tomorrow if home health is set up and patient can manage ostomy care. 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 No more nausea. Pain controlled. Exam GI: Inspection: incision (C/D/I) Other: Ostomy patent and functioning Objective Data Vital Signs Vital Signs: Vital Signs - 24 hr 05/05/20 14:00 05/05/20 21:28 05/06/20 05:16 Temperature 36.6 C 36.7 C 36.3 C L Pulse Rate 101 H 100 73 Respiratory Rate 14 16 16 Blood Pressure 129/74 133/85 137/81 Pulse Oximetry 99 99 98 Intake/Output Intake/Output: Intake & Output 05/03/20 05/04/20 05/05/20 05/06/20 23:59 23:59 23:59 23:59 Intake Total 2710 2080 1950 290 Output Total 825 1235 1535 2320 Balance 7611 277 -6060 -6901 Meds/Results Medications: Active Medications Generic Name Dose Route Start Last Admin Trade Name Freq PRN Reason Stop Dose Admin Acetaminophen 650 mg 05/04/20 11:56 Acetaminophen 325 Mg Tablet PO Q6H PRN Mild Pain (1-3) or Fever Hydrocodone Bitart/Acetaminophen 1 tab 05/04/20 11:55 Hydrocodone/Acetaminophen (*Crx) 5-325 Mg Tablet PO Q4H PRN Pain Rated 4-6 Hydrocodone Bitart/Acetaminophen 1 tab 05/04/20 11:55 05/04/20 18:28 Hydrocodone/Acetaminophen (*Crx) 10-325 Mg Tablet PO 1 tab Q4H PRN Administration Pain Rated 7-10 Enoxaparin Sodium 40 mg 05/02/20 09:00 05/06/20 08:30 Enoxaparin 40 Mg/0.4 Ml Syringe SUB-Q 40 mg DAILY MARCUS Administration Hydromorphone HCl 1 mg 05/02/20 00:39 05/03/20 18:56 Hydromorphone Hcl Inj (*Crx) 1 Mg/Ml Syr IV PUSH 1 mg Q2H PRN Administration Pain Rated 7-10 Hydromorphone HCl 0.5 mg 05/02/20 00:39 05/04/20 15:17 Hydromorphone Hcl Inj (*Crx) 1 Mg/Ml Syr IV PUSH 0.5 mg Q2H PRN Administration Pain Rated 4-6 Piperacillin/Tazobactam/Dextrose 3.375 gm in 50 mls @ 100 mls/hr 05/02/20 00:39 05/06/20 06:00 Zosyn 3.375 Gm/D5w 50ml Pm IVPB Infused Q6HR MARCUS Infusion Lisinopril 20 mg 05/05/20 09:00 05/06/20 08:30 Lisinopril 20 Mg Tablet PO 20 mg DAILY MARCUS Administration Non-Formulary Medication 1 tablet 05/05/20 09:00 Hywuzkxuzx-Oouerjcj-Smyhyy Ala [Odefsey] PO 06/04/20 09:01 DAILY MARCUS Ondansetron HCl 4 mg 05/02/20 00:39 05/04/20 22:26 Ondansetron Inj 4 Mg/2 Ml Vial IV PUSH 4 mg Q4H PRN Administration Nausea And Vomiting Polyethylene Glycol 17 gm 05/04/20 12:00 05/05/20 08:33 Polyethylene Glycol 3350 17 Gm Powd.Pack PO 17 gm QAM MARCUS Administration Pravastatin Sodium 20 mg 05/05/20 09:00 05/06/20 08:30 Pravastatin Sodium 20 Mg Tablet PO 20 mg DAILY MARCUS Administration Sertraline HCl 50 mg 05/05/20 09:00 05/06/20 08:30
[2020-05-06] MEDS: ACETAMINOPHEN 325 MG TABLET 650 MG PO (12:00)
--- NOTE | 2020-05-06 13:01 | PM.IMPN ---
Progress Note: A&P Assessment and Plan (1) Foreign body anus/rectum: Qualifiers: Encounter type: initial encounter Qualified Code(s): T18.5XXA - Foreign body in anus and rectum, initial encounter Code(s): T18.5XXA - Foreign body in anus and rectum, initial encounter Status: Acute Assessment and Plan: S/p exploratory laparotomy Advance diet as tolerated Appreciate surgery note (2) Acute blood loss anemia: Code(s): D62 - Acute posthemorrhagic anemia Status: Acute Assessment and Plan: Stable (3) HIV (human immunodeficiency virus infection): Qualifiers: HIV symptom status: unspecified Qualified Code(s): B20 - Human immunodeficiency virus [HIV] disease Code(s): B20 - Human immunodeficiency virus [HIV] disease Status: Chronic Assessment and Plan: On FARRAR Follow up in the outpatient setting (4) Diabetes mellitus: Qualifiers: Diabetes mellitus complication status: without complication 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 Constitutional: Comments: no fevers, no rigors, no chills. Cardiovascular: Comments: no chest pain, no leg swelling, no orthopnea. Respiratory: Comments: no sob, no cough, no sputum production Gastrointestinal: Comments: Heartburn. Musculoskeletal: Comments: no joint pain Integumentary/Breasts: Comments: blister with skin break down around ostomy site Neurologic: Comments: no sensory motor deficit Exam Narrative: Exam Narrative: Sitting in chair Const: General: comfortable, no acute distress, alert, awake and Physically active Nutritional Appearance: well nourished Orientation/consciousness: patient oriented x3 HENMT: Head: normal to inspection and normocephalic Ears: hearing grossly normal bilaterally General nose exam: Normal external nose present Face and sinus: normal facial exam Eyes: General: appearance normal, both eyes and all related structures Pupils: Equal, round and reactive pupils present EOM: EOMs intact bilaterally Neck: Neck: no lymphadenopathy, supple and no JVD Lymphatic: no lymphadenopathy noted Resp: Effort & Inspection: normal respiratory effort and able to speak in complete sentences Auscultation: clear to auscultation bilaterally Cardio: Jugular venous distension: no JVD Rate: regular rate Rhythm: regular rhythm GI: Inspection: other (colostomy in place, midline surgical wound.) GI Palp: Yes Soft to palpation and Yes No hepatosplenomegaly present Skin: Wounds: wounds noted (ostomy wound, blistering around on and skin slough off) Neuro: General: patient oriented x3 Motor exam (neuro): 5/5 motor strength present throughout Extrem: General: no pedal edema Objective Data Vital Signs Vital Signs: Vital Signs - 24 hr 05/05/20 14:00 05/05/20 21:28 05/06/20 05:16 Temperature 97.8 F 98.0 F 97.3 F L Pulse Rate 101 H 100 73 Respiratory Rate 14 16 16 Blood Pressure 129/74 133/85 137/81 Pulse Oximetry 99 99 98 Intake/Output Intake/Output: Intake & Output 05/03/20 05/04/20 05/05/20 05/06/20 23:59 23:59 23:59 23:59 Intake Total 2710 2080 1950 340 Output Total 825 1235 3435 3350 Balance 1273 067 -9589 -0051 Meds/Results Medications: Active Medications Generic Name Dose Route Start Last Admin Trade Name Freq
[2020-05-06 14:00] VITALS: BP 105/63; PULSE 104; RESP 18; TEMP 36.3; O2SAT 100
[2020-05-06 21:00] VITALS: BP 133/74; PULSE 92; RESP 18; TEMP 36.9; O2SAT 98
[2020-05-07] MEDS: HYDROcodone/acetaminophen (*CRX) 5-325 MG TABLET 1 TAB PO ×3 (00:39→13:07)
[2020-05-07 06:00] VITALS: BP 121/72; PULSE 85; RESP 16; TEMP 36.4; O2SAT 98
[2020-05-07] MEDS: SUCRALFATE SUSP 100 MG/ML 10 ML UDC 1000 MG PO ×2 (06:06→11:28)
[2020-05-07] MEDS: PRAVASTATIN SODIUM 20 MG TABLET PO (08:31)
[2020-05-07] MEDS: ENOXAPARIN 40 MG/0.4 ML SYRINGE SUB-Q (08:31)
[2020-05-07] MEDS: SERTRALINE HCL 50 MG TABLET PO (08:31)
[2020-05-07] MEDS: lisinopriL 20 MG TABLET PO (08:31)
--- NOTE | 2020-05-07 09:00 | PC.NURSE ---
Patient with constant soft stool in colostomy bag, requiring emptying several times per shift. Mirrebekahx held and will discuss with Dr. Pinon on rounds today.
--- NOTE | 2020-05-07 10:58 | PC.NURSE ---
Observed patient emptying his colostomy bag. Instructed patient to wear gloves and demonstrated use of arlene bottle to irrigate inside of bag and empty into graduate. Patient was able to empty the bag with very little prompting. Patient is to have home health nurse at his home on Friday to assist with changing the bag.
--- NOTE | 2020-05-07 12:02 | PM.DS ---
DS: Admitting Diagnosis Admitting Diagnosis Admitting Diagnosis: Rectal foreign body DS: Discharge Diagnosis Discharge Diagnosis (1) Foreign body anus/rectum: Qualifiers: Encounter type: initial encounter Qualified Code(s): T18.5XXA - Foreign body in anus and rectum, initial encounter Code(s): T18.5XXA - Foreign body in anus and rectum, initial encounter Status: Acute (2) Acute blood loss anemia: Code(s): D62 - Acute posthemorrhagic anemia Status: Acute (3) HIV (human immunodeficiency virus infection): Qualifiers: HIV symptom status: unspecified Qualified Code(s): B20 - Human immunodeficiency virus [HIV] disease Code(s): B20 - Human immunodeficiency virus [HIV] disease Status: Chronic (4) Diabetes mellitus: Qualifiers: Diabetes mellitus complication status: without complication Diabetes mellitus senior care insulin use: without senior care use Diabetes mellitus type: type 2 Qualified Code(s): E11.9 - Type 2 diabetes mellitus without complications Code(s): E11.9 - Type 2 diabetes mellitus without complications Status: Chronic (5) Hypertension: Code(s): I10 - Essential (primary) hypertension Status: Chronic (6) Depression with anxiety: Code(s): F41.8 - Other specified anxiety disorders Status: Chronic DS: Summary Hospital Course Reason for hospitalization: Rectal foreign body Hospital Course: This is a 59-year-old man who presented to the emergency department on 05/01/2020 with a foreign body in his rectum. He was found to have a very large glass decorative egg that he had inserted into his rectum and could not remove. Was taken to the operating in 05/01/2020 wound and the foreign body was unable to be removed from the rectum and therefore he had to have exploratory laparotomy with colotomy and removal of the foreign body. He was given a colostomy due to rectal injury from the form body and significantly dilated sigmoid colon. He was admitted for recovery postoperatively. He was started on Zosyn postoperatively as well due to stool spillage during the procedure. His pain was controlled with IV pain medications initially and he was kept NPO. Over the next several days, his diet was then gradually advanced. His ostomy output was slow to sisal picker, but by postoperative day 3 we were starting to see some gradual stool output. Hospitalist was consulted for medical management. On 05/06/2020 wound he was advanced to a soft diet and was tolerating this well. His pain was controlled and he was ambulating without difficulty. The wound ostomy nurses had seen patient and went over ostomy teaching. Home health was also sent up for ostomy and wound care once he was discharged. He was then discharged on 05/07/2020. Status at Discharge Functional status at discharge: independent ambulation Overall status at discharge: patient is progressing back to baseline Time Spent with Patient Time attestation: Total time spent providing and/or coordinating discharge services: Time spent: Less than 30 minutes Exam Resp: Effort & Inspection: normal respiratory effort Auscultation: clear to auscultation bilaterally Cardio: Jugular venous distension: no JVD Rate: regular rate Rhythm: regular rhythm Heart sounds: S1 normal heart sound present and S2 normal heart sound present GI: Inspection: incision (C/D/I) Other: Ostomy patent and functioning DS: Data Data Completed and Pending Completed studies during hospitalization: Pending at discharge 05/01/20 22:49 Surgical [PTH] Routine Discharge Plan Discharge Attending physician on discharge: Antoni Pinon Consulting providers: Jorgito Hartley ; Lolly Garrison Discharging Clinician: Antoni Pinon Patient Disposition: Home Health Service Activity: other - see discharge instructions Diet: regular Wound Care Instructions: follow printed instructions D
[2020-05-07] MEDS: NEOMYCIN/POLYMYXIN/BACITRACIN OINTMENT 15 GM TUBE 1 APPLIC TOPICAL (13:09)
--- NOTE | 2020-05-07 13:29 | PC.NURSE ---
Notified Dr. Pinon that Miralax held today and yesterday due to liquid/soft stools in colostomy. Notified Dr. Rhodes that patient is being discharged. No additional orders received. Dr. Rhodes in agreement with discharge today.
--- NOTE | 2020-05-07 13:32 | PM.DS ---
DS: Admitting Diagnosis Admitting Diagnosis Admitting Diagnosis: 1) Foreign body anus/rectum: (2) HIV (human immunodeficiency virus infection): (3) Diabetes mellitus: DS: Discharge Diagnosis Discharge Diagnosis (1) Foreign body anus/rectum: Qualifiers: Encounter type: initial encounter Qualified Code(s): T18.5XXA - Foreign body in anus and rectum, initial encounter Code(s): T18.5XXA - Foreign body in anus and rectum, initial encounter Status: Acute Assessment and Plan: S/p exploratory laparotomy S/p colostomy placement Will follow up in the outpatient setting. (2) Acute blood loss anemia: Code(s): D62 - Acute posthemorrhagic anemia Status: Acute Assessment and Plan: Stable (3) Depression with anxiety: Code(s): F41.8 - Other specified anxiety disorders Status: Chronic Assessment and Plan: Follow up in the outpatient setting. (4) HIV (human immunodeficiency virus infection): Qualifiers: HIV symptom status: unspecified Qualified Code(s): B20 - Human immunodeficiency virus [HIV] disease Code(s): B20 - Human immunodeficiency virus [HIV] disease Status: Chronic Assessment and Plan: Continue FARRAR Follow up in the outpatient setting (5) Diabetes mellitus: Qualifiers: Diabetes mellitus complication status: without complication Diabetes mellitus snf insulin use: without snf use Diabetes mellitus type: type 2 Qualified Code(s): E11.9 - Type 2 diabetes mellitus without complications Code(s): E11.9 - Type 2 diabetes mellitus without complications Status: Chronic Assessment and Plan: Orally and diet controlled. Follow up in the outpatient setting. (6) Hypertension: Code(s): I10 - Essential (primary) hypertension Status: Chronic Assessment and Plan: Continue home meds Follow up in he outpatient setting (7) Peripheral neuropathy: Code(s): G62.9 - Polyneuropathy, unspecified Status: Acute Assessment and Plan: Likely secondary to T2DM but also on FARRAR Follow up in the outpatient setting DS: Summary Hospital Course Reason for hospitalization: Foreign body in rectum. Hospital Course: Montrell Huntley is a 59 yo male very unfortunate with PMHx significant for HIV/AIDS, T2DM, Peripheral neuropathy that presented to ED due to having self inserted a foreign body into his rectum this got stuck in his rectum and remained there for roughly 4 days until it caused him to have difficulty urinating and was unable to have bowel movement as well. It was attempted to remove in ED but unsuccessfully. A surgical consult then was called and patient was taken to OR for examination and removal under sedation which was not possible as well then it was decided at that point that exploratory Laparotomy be done. This object was successfully removed. Patient is now s/p Exploratory Laparotomy with colostomy placement. Status at Discharge Cognitive/behavioral status at discharge: AO x 3 Functional status at discharge: independent ambulation Overall status at discharge: patient is back to baseline Time Spent with Patient Time attestation: Total time spent providing and/or coordinating discharge services: Time spent: Greater than 30 minutes Exam Const: General: cooperative, healthy appearing, comfortable, no acute distress, well developed, alert, awake and Physically active Nutritional Appearance: average body habitus Orientation/consciousness: patient oriented x3 Limitations: no limitations HENMT: Head: normal to inspection, normocephalic and atraumatic Ears: hearing grossly normal bilaterally General nose exam: Normal external nose present Face and sinus: normal facial exam Eyes: General: appearance normal, both eyes and all related structures Pupils: Equal, round and reactive pupils present EOM: EOMs intact bilaterally Neck: Neck: normal
[2020-05-07 14:00] VITALS: BP 117/76; PULSE 98; RESP 14; TEMP 36.7; O2SAT 97
--- NOTE | 2020-06-21 14:48 | PCWOUND ---
WOCN NOTE Patient called upset he is almost out of ostomy bags and states he was not set up with a service by home health, called melissa tavarez and set up service for patient and placed order for supplies.
--- NOTE | 2020-06-22 08:13 | PCWOUND ---
WOCN Note: Patient set up with Nena Nicole ( ) for his ostomy supplies. Account number is [id number]. Patient was notified and given all pertinent information with understanding verbalized,
== END 2020-05-07 16:50 | disposition home health service (06) | DRG 330 ==
LOC: ANHED 18:49 → ANH2MED 22:43
PROVIDERS: Physician Assistant; Admitting Provider Surgery; Emergency Provider Emergency Medicine; PCP Emergency Medicine; Visit Provider Surgery
PROC: 0DCP0ZZ Extirpation of Matter from Rectum, Open Approach (ICD-10-PCS; CPT 49000; principal; 2020-05-01 19:00)
DX: T18.5XXA Foreign body in anus and rectum, initial encounter (principal); B20 Human immunodeficiency virus [HIV] disease; D62 Acute posthemorrhagic anemia; X83.8XXA Intentional self-harm by other specified means, initial encounter; F41.8 Other specified anxiety disorders; I10 Essential (primary) hypertension; G62.9 Polyneuropathy, unspecified; E11.9 Type 2 diabetes mellitus without complications
CPT/HCPCS: 36415; 74018; 80048; 80053; 81001; 82948; 85025; 85027; 85055; 85610; 85730; 87086; 88300; 88307; 96374; 96375; 96376; 99285; A9270; J0131; J0330; J0690; J1100; J1170; J1650; J2250; J2370; J2405; J2543; J2704; J2710; J3010; J7120

== ENCOUNTER 2020-05-09 08:43 | Emergency (ER) | payer MEDICARE, MEDICAID, SELFPAY ==
[2020-05-09] VITALS (14 sets, daily range): BP systolic 101–126; BP diastolic 71–85; PULSE 78–92; RESP 13–21; TEMP 36.1; O2SAT 94–100
[2020-05-09 09:24] LABS: Basophils Absolute Auto 0.1 K/mm3 (0.0-0.1); Basophils Percent Auto 0.7 % (0.2-1.2); Eosinophils Absolute Auto 0.2 K/mm3 (0-0.3); Eosinophils Percent Auto 1.9 % (0-4.4); Hematocrit 36.5 % (42.0-52.0); Hemoglobin 12.9 g/dL (14.0-18.0); Immature Granulocyte Percent A 5.5 % (0-0.5); Lymphocytes Percent Auto 18.5 % (18.3-44.2); Mean Corpuscular HGB Conc 35.3 g/dl (32-36); Mean Corpuscular Hemoglobin 34.4 pg (26-34); Mean Corpuscular Volume 97.3 fl (80-100); Mean Platelet Volume 9.4 fl (7.4-10.4); Monocytes Absolute Auto 0.8 K/mm3 (0.1-0.6); Neutrophils Absolute Auto 7.2 K/mm3 (1.3-6.7); Neutrophils Percent Auto 66.4 % (45.5-73.1); Platelet Count Result 335 k/mm3 (150-375); Red Blood Count 3.75 M/mm3 (4.6-6.20); Red Cell Distribution Width 12.9 % (11.5-14.5); White Blood Count 10.8 K/mm3 (4.5-10.0)
[2020-05-09 09:35] LABS: Platelet Estimate Adequate (Adequate); Stomatocytes 1+ (NORMAL)
[2020-05-09 09:37] LABS: INR 0.9; Partial Thromboplastin Time 28.5 SECONDS (22.3-36.8); Prothrombin Time 12.5 Seconds (11.1-14.7)
--- NOTE | 2020-05-09 09:42 | ED.GIBLEED ---
HPI - GI Bleed General Chief complaint: GI Bleed Stated complaint: bleeding from rectum Time Seen by Provider: 05/09/20 09:10 Source: patient Mode of arrival: ambulatory Limitations: no limitations History of Present Illness HPI Narrative: This is a 59-year-old male who presents to the emergency department for GI bleed. Reports he was walking at home and felt like he was having some bleeding from his bottom. He went to the bathroom and wiped and noted blood on the tissue. Reports some more blood going to the toilet after that. Patient was discharged 2 days ago. Had partial colectomy with colostomy due to a rectal foreign body. Reports he had not been having any trouble with bleeding until today. Denies fever, abdominal pain, or vomiting. Related Data Home Medications Medication Instructions Recorded Confirmed Odefsey 1 tablet PO DAILY 12/07/19 05/02/20 lisinopril 20 mg PO DAILY 12/07/19 05/02/20 metformin 500 mg PO DAILY 12/07/19 05/02/20 pravastatin 20 mg PO DAILY 12/07/19 05/02/20 sertraline 50 mg PO DAILY 12/07/19 05/02/20 Allergies Allergy/AdvReac Type Severity Reaction Status Date / Time Cultivated Oat Pollen Allergy Mild Itching Uncoded 05/09/20 08:55 Dust Allergy Mild Dyspnea / Uncoded 05/09/20 08:55 SOB Molds and Smuts Allergy Mild Itching Uncoded 05/09/20 08:55 Review of Systems Review of Systems: Narrative: CONSTITUTIONAL: Denies fever GASTROINTESTINAL: Denies abdominal pain, nausea, vomiting GENITOURINARY: Denies dysuria All systems reviewed & are unremarkable except as noted in HPI and below [facility] Past Medical History Medical History (Updated 05/09/20 @ 11:47 by Lolly Garrison PA-C) Arthritis Chronic neck and left shoulder pain Depression with anxiety Diabetes mellitus HIV (human immunodeficiency virus infection) Hypertension Peripheral neuropathy Surgical History Surgical History (Updated 05/01/20 @ 19:28 by Antoni Pinon DO) H/O hand surgery Surgery to right hand after a fracture many years ago H/O neck surgery Around 2017 History of mandibular surgery Many years ago per patient Hx of umbilical hernia repair Family History Family History Mother Diabetes mellitus Hypertension Myocardial infarct Hypercholesteremia Sibling Diabetes mellitus Myocardial infarct Sibling Diabetes mellitus Sibling Diabetes mellitus Sibling Diabetes mellitus Sibling Diabetes mellitus Myocardial infarct Father Lung cancer Social History Social History Social History: Mr. Huntley lives at home in [place] with his sister, Shyann. 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 He reports drinking around 2 to 3 beers per day on some days, some days none. He smokes marijuana daily for pain and anxiety. He denies other substance use. Never tobacco smoker. His PCP is Dr Juan Flores. He designates his sister, Shyann, to be his surrogate decision maker and he is full code status. Smoking status: Never smoker Alcohol intake: current Drinks per week: 8 Substance use: current Substance use type: marijuana Gender identity (if verbalized by the patient): Male Spiritual care concerns: No Exam Narrative: Exam Narrative: GENERAL: Well-appearing, well-nourished, and in no acute distress. HEAD: Normocephalic, atraumatic. EYES: EOMI. CHEST: Clear to auscultation. No respiratory distress. No wheezes rales or rhonchi HEART: Regular rate and rhythm. No murmur heard. Normal peripheral pulses. ABDOMEN: Soft, nontender, nondistended, normal active bowel sounds. Colostomy present to the left mid abdomen with brown output. There is some mild redness and blistering of the skin surrounding the ostomy. Midline incision is clean, dry and intact with misa in place. No abnormal erythema, edema or discharge EXTREMITIES: Normal range of motion. No
[2020-05-09 09:55] LABS: Alanine Aminotransferase 51 U/L (4-50); Albumin Level 3.8 g/dL (3.5-5.1); Alkaline Phosphatase 97 U/L (38-126); Anion Gap 8 mmol/L (8-16); Aspartate Amino Transferase 45 U/L (17-59); Bilirubin,Total 0.4 mg/dL (0.2-1.3); Blood Urea Nitrogen 13 mg/dL (9-20); Calcium 9.3 mg/dL (8.4-10.2); Carbon Dioxide 27 mmol/L (22-30); Chloride 99 mmol/L (98-107); Estimated CRCL calculation 102 ml/min; Estimated Glomerular Filt Rate > 60; Glucose 136 mg/dL (75-110); Potassium 4.7 mmol/L (3.4-5.0); Sodium 134 mmol/L (137-145)
== END 2020-05-09 12:19 | disposition home or self-care (01) ==
PROVIDERS: Emergency Provider Emergency Medicine; PCP Emergency Medicine
DX: K60.2 Anal fissure, unspecified (principal); M19.90 Unspecified osteoarthritis, unspecified site; F41.8 Other specified anxiety disorders; I10 Essential (primary) hypertension; E11.42 Type 2 diabetes mellitus with diabetic polyneuropathy; Z79.84 Long term (current) use of oral hypoglycemic drugs; Z21 Asymptomatic human immunodeficiency virus [HIV] infection status; Z90.49 Acquired absence of other specified parts of digestive tract
CPT/HCPCS: 36415; 80053; 85025; 85610; 85730; 86850; 86900; 86901; 99283

== ENCOUNTER → 2021-06-05 12:46 | Outpatient (CLI) | payer MEDICARE, MEDICAID, SELFPAY ==
--- NOTE | ~2021-06-05 | CT_ITS ---
EXAMINATION: CT abdomen pelvis wo con DATE: 06/05/2021 13:10 INDICATION: Parastomal hernia without obstruction or gangrene. TECHNIQUE: Computed tomography (CT) of the abdomen and pelvis was performed without intravenous contr ast. Automated exposure control and iterative reconstruction technique were employed. The dose-length product was 894.15 mGy-cm. COMPARISON: None. FINDINGS: The visualized portions of the lung bases demonstrate minimal atelectasis. No pleural effus ion. The heart size is normal. There are coronary artery calcifications. There is a trace pericardial effusion. There is diffuse hepatic steatosis. The gallbladder is normal. There are peripheral calcif ications in the spleen, likely from old injury. The pancreas and adrenal glands are normal. There are cysts in the kidneys measuring up to 2.9 cm on the right. There is no urolithiasis. There is an end colostomy in left abdomen. A Zoila pouch is noted. There is a parastomal hernia containing nonobst ructed small bowel. There is diverticulosis of the colon without evidence of diverticulitis. The appe ndix is not visualized. There are no pathologically enlarged lymph nodes. There is no free intraperit redd fluid. There is mild thoracolumbar spondylosis. There is a chronic burst fracture of T12. IMPRESSION: 1. End colostomy in left abdomen with parastomal hernia containing nonobstructed small bowel. Reviewed, dictated and finalized at location A. IMPRESSION: 1. End colostomy in left abdomen with parastomal hernia containing nonobstructe d small bowel.
== END ==
PROVIDERS: PCP Emergency Medicine; Visit Provider Surgery
DX: K43.5 Parastomal hernia without obstruction or gangrene (principal); Z93.9 Artificial opening status, unspecified
CPT/HCPCS: 74176

== ENCOUNTER 2021-06-06 09:36 | Outpatient (CLI) | payer MEDICARE, MEDICAID, SELFPAY ==
--- NOTE | ~2021-06-06 | XR_ITS ---
EXAMINATION: XR enema water soluble EXAM DATE: 06/06/2021 10:31 INDICATION: Z93.9 - Artificial opening status, unspecified.. TECHNIQUE: Water-soluble diluted Omnipaque 350 solution enema was performed. Correlation is made to KUB from 05/01/2020. Dose reduction digital pulsed fluoroscopy was used at 4 frames per second with DAP 7.5 Gycm2, and a total number of 33 images for the exam. FINDINGS: Rectal tube was placed. Contrast was allowed to flow into the rectal vault under gravity wi th the bag approximately 3 feet above table height. Contrast reached the rectosigmoid junction and di d not progress. After assessing the size of the rectal vault, the balloon was then inflated additionally to better ac commodate, and the bag of contrast was raised an additional foot to increased pressure. Position was held for approximately 5 minutes. Contrast did not progress beyond the strictured appearing rectosigm oid junction. IMPRESSION: Severe rectosigmoid stricturing, without contrast extending or proximal. Reviewed, dictated and finalized at location A. IMPRESSION: Severe rectosigmoid stricturing, without contrast extending or pro ximal.
== END 2021-06-06 09:37 | disposition home or self-care (01) ==
PROVIDERS: PCP Emergency Medicine; Visit Provider Surgery
DX: Z93.9 Artificial opening status, unspecified (principal)
CPT/HCPCS: 74270

== ENCOUNTER 2021-07-11 10:11 | Outpatient (CLI) | payer MEDICARE, MEDICAID, SELFPAY ==
--- NOTE | 2021-07-11 11:19 | ECG_ITS ---
Measurements Intervals [place] Rate: 91 P: 22 MO: 154 QRS: 11 QRSD: 94 T: 35 QT: 365 QTc: 450 Interpretive Statements SINUS RHYTHM BASELINE ARTIFACT- I, II, III, AVR, AVL, AVF NORMAL ECG Electronically Signed On 07-11-2021 12:44:11 CDT by Abdifatah Peterson D.O.
[2021-07-11 12:01] LABS: Anion Gap 7 mmol/L (8-16); Blood Urea Nitrogen 11 mg/dL (9-20); Calcium 8.6 mg/dL (8.4-10.2); Carbon Dioxide 24 mmol/L (22-30); Chloride 103 mmol/L (98-107); Estimated Glomerular Filt Rate > 60; Glucose 151 mg/dL (65-110); Sodium 134 mmol/L (137-145)
== END 2021-07-11 10:12 | disposition home or self-care (01) ==
LOC: ANHSURGERY 10:16
PROVIDERS: Anesthesiology; PCP Emergency Medicine; Visit Provider Surgery
DX: E11.9 Type 2 diabetes mellitus without complications (principal); Z93.3 Colostomy status; I10 Essential (primary) hypertension; Z01.818 Encounter for other preprocedural examination
CPT/HCPCS: 36415; 80048; 85014; 85018; 86850; 86900; 86901; 93005

== ENCOUNTER 2021-07-20 17:34 | Inpatient (IN) | payer MEDICARE, MEDICAID, SELFPAY ==
[2021-07-11 10:32] VITALS: BP 120/87; PULSE 100; RESP 16; TEMP 37.3; O2SAT 97; BMI 28.3
--- NOTE | 2021-07-11 10:52 | PC.NURSE ---
Report to the Outpatient Waiting Room, entrance under the green pavilion located off [facility], at time __10:00AM on date __07/20/21 . OR Time: __12:00PM . - You and your visitor will be asked a series of questions to screen for COVID 19 for your protection. - Only one visitor is allowed at this time. - The patient visitor is requested to leave or wait in car when not with patient. - A mask is required within the hospital. Patients may have clear liquids (water, carbonated beverages, clear teas, apple juice) until 3 hours prior to surgery with a maximum of 20 ounces. - No food from midnight until time of surgery - Infants may have breast milk until 4 hours before surgery, formula 6 hours prior to surgery. - Children will be allowed to drink immediately following surgery. If applicable, please bring a bottle or sippy cup to assist with drinking. Juice, water, soda, and popsicles are readily available. For infants on formula, please bring formula the day of surgery. Pacifiers are allowed. Take the following medications with a SIP of water the morning of surgery: NONE Medications to discontinue per physician NONE Date to take last dose TAKE ERYTHROMYCIN AND NEOMYCIN DAY BEFORE SURGERY DIRECTED Please no make-up, nail kyrgyz, hairspray, perfume, deodorant, or body powder the day of surgery. No jewelry (including any body piercings) or valuables the day of surgery, leave them at home. Please take a shower or bath the night before, or the morning of, surgery with an antibacterial soap. Wear comfortable, loose fitting clothing. Children are encouraged to wear pajamas. - Jewelry must be removed prior to entering the operating room. Rings and piercings that are not removed may be cut off. - The hospital will not accept responsibility for valuables. - Please leave all valuables, including medications, at home the day of surgery. If you are going home after surgery, a licensed regional company flatbed truck driver must drive you home. - NO public transportation without another adult. - We recommend that an adult stay with you for 24 hours following discharge. - We also recommend that you do not drive, make important decision, drink alcoholic beverages, or take any drugs that were not prescribed by your health care provider for at least 24 hours after your discharge time. For Pediatric surgeries, we recommend two adults accompany the child home (only one inside the building at this time). Follow any additional instructions given to you from your surgeon. BOWEL PREP ORDERED ANTIBIOTIC ORDERED ENSURE BUNDLE DIRECTED HIBICLENS SHOWER DIRECTED If you or anyone in your household have experienced Covid symptoms in the past week, please notify your surgeon or the nurse liaison at the phone number below for possible testing. Telephone instructions given to _PATIENT and asked if any additional questions and then verbalized understanding. Patient advised to call surgeon office or pre surgery nurse liaison [phone] if any additional questions.
--- NOTE | 2021-07-19 13:32 | WPDANESEPPF ---
Anes - Initial Pre Proc Eval Procedure: Operation Date: 07/20/21 12:00 Proposed Procedures p Colostomy Closure Takedown - Antoni Pinon DO Date/Time: 07/19/21 13:32 Surgeon: Antoni Pinon DO Pre Op Diagnosis: Colostomy Status Patient Data Age: 60 Gender: M Height: 1.78 m Weight: 89.6 kg Last Vital Signs Temp 37.3 C 07/11/21 10:32 Pulse 100 07/11/21 10:32 Resp 16 07/11/21 10:32 BP 120/87 07/11/21 10:32 Pulse Ox 97 07/11/21 10:32 Allergies Allergy/AdvReac Type Severity Reaction Status Date / Time Cultivated Oat Pollen Allergy Mild ItchY Uncoded 07/11/21 10:27 EYE/CONGESTION Dust Allergy Mild Dyspnea / Uncoded 07/11/21 10:27 SOB Molds and Smuts Allergy Mild DYSPNEA/ Uncoded 07/11/21 10:27 SOB Home Medications Medication Instructions Recorded Confirmed Type Odefsey 1 tablet PO HS 12/07/19 07/11/21 History lisinopril 20 mg PO HS 12/07/19 07/11/21 History metformin 500 mg PO HS 12/07/19 07/11/21 History pravastatin 20 mg PO HS 12/07/19 07/11/21 History sertraline 100 mg tablet 100 mg PO HS 05/30/21 07/11/21 History erythromycin 500 mg tablet See Rx Instructions .ROUTE 06/21/21 07/11/21 Rx .COMPLEX #6 tablet neomycin 500 mg tablet See Rx Instructions .ROUTE 06/21/21 07/11/21 Rx .COMPLEX #6 tablet Patient hx anesthesia problems: none Family hx anesthesia problems: none Results Review: All pre-operative results and documents have been reviewed as part of the pre-operative evaluation. [facility], [facility] Past Medical History Medical History Arthritis Chronic neck and left shoulder pain Depression with anxiety Diabetes mellitus HIV (human immunodeficiency virus infection) Hx of hyperlipidemia Hypertension Peripheral neuropathy Surgical History Surgical History H/O hand surgery Surgery to right hand after a fracture many years ago H/O neck surgery Around 2017 History of mandibular surgery Many years ago per patient Hx of umbilical hernia repair Status post Zoila procedure 05/2020 - Rectal exam under anesthesia, attempted removal of rectal foreign body, exploratory laparotomy, colotomy with removal of rectal foreign body, sigmoid colectomy with end descending colostomy Family History Family History Mother Diabetes mellitus Hypertension Myocardial infarct Hypercholesteremia Sibling Diabetes mellitus Myocardial infarct Sibling Diabetes mellitus Sibling Diabetes mellitus Sibling Diabetes mellitus Sibling Diabetes mellitus Myocardial infarct Father Lung cancer Social History Social History Social History: Mr. Huntley lives at home in [place] with his sister, Shyann. 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 He reports drinking around 2 to 3 beers per day on some days, some days none. He smokes marijuana daily for pain and anxiety. He denies other substance use. Never tobacco smoker. His PCP is Dr Juan Flores. He designates his sister, Shyann, to be his surrogate decision maker and he is full code status. Smoking status: Never smoker Alcohol intake: current Drinks per week: 8 Substance use: current Substance use type: marijuana Other substance usage details: ~2014 USED METH FOR ABOUT A YEAR Living arrangements: with family Additional living arrangements comments: SISTER Additional occupation/education comments: disabled Gender identity (if verbalized by the patient): Male Spiritual care concerns: No Anes - Eval Final PreProcedure Day of Procedure 07/19/21 13:32 Patient weight: overweight Heart: regular rate and rhythm Lungs: clear to auscultation and normal air movement Airway: Mallampati scale class II Neurological: alert and oriented Last or
[2021-07-20] VITALS (14 sets, daily range): BP systolic 75–137; BP diastolic 52–84; PULSE 83–114; RESP 13–21; TEMP 35.9–36.6; O2SAT 96–100; BMI 27.1
--- NOTE | ~2021-07-20 | CT_ITS ---
EXAMINATION: CT abdomen pelvis w con DATE: 07/22/2021 13:07 INDICATION: Suspicion for left ureteral injury. TECHNIQUE: Computed tomography (CT) of the abdomen and pelvis was performed with a total of 100 mL Om nipaque-300 intravenous contrast using a double-bolus technique for simultaneous opacification of the renal parenchyma and renal collecting system. Automated exposure control and iterative reconstructio n technique were employed. The dose-length product was 817.86 mGy-cm. COMPARISON: 06/05/2021 FINDINGS: Atelectasis with wedge-shaped regions of consolidation with associated volume loss in the bilateral l ower lobes. Heart size is normal. Atherosclerotic coronary artery calcific location. No pericardial o r pleural effusion. Diffuse hepatic steatosis. Gallbladder, spleen, bilateral adrenal glands are norm al. Punctate calcification at the body of the pancreas which may represent sequela of chronic pancrea titis. Bilateral renal cysts, the largest on the right measuring 2.8 cm. Slightly higher attenuation nonenhancing 8 mm likely proteinaceous/hemorrhagic cyst at the interpolar region of the left kidney w ith identical attenuation as on the prior precontrast study. Symmetric renal parenchymal enhancement. There is new mild left hydroureteronephrosis which extends to the ureter crosses anterior to the lef t internal iliac artery beyond which the left ureter appears decompressed. The right ureter is opacif ied in its entirety with ureteral jet of contrast seen within the bladder. There is also small amount of gas in the bladder, correlate for recent Lopez catheterization. Postoperative change of prior lef t lower quadrant and colostomy takedown and reanastomosis with anastomotic suture line in the pelvis. No dilated bowel to suggest obstruction. Minimal amount of scattered likely postoperative free intra peritoneal gas. Likely postoperative stranding of the fat in the lower abdomen and pelvis but no absc ess or significant free fluid in the pelvis to suggest urine leak. No change of a chronic T12 burst f racture. IMPRESSION: 1. Postoperative change of recent left lower quadrant and colostomy takedown with colonic reanastomos is. 2. New mild left hydroureteronephrosis with transition point near the site of the colonic anastomosis where the ureter passes anterior to the left internal iliac artery. No surgical clip or other obstru cting lesion identified at the transition point and no significant free fluid or contrast extravasati on to suggest urine leak. 3. Dependent atelectasis in the bilateral lower lobes. 4. Diffuse hepatic steatosis. Reviewed, dictated and finalized at location A. IMPRESSION: 1. Postoperative change of recent left lower quadrant and colostomy takedown wi th colonic reanastomosis. 2. New mild left hydroureteronephrosis with transition point near the site of t he colonic anastomosis where the ureter passes anterior to the left internal il iac artery. No surgical clip or other obstructing lesion identified at the domingo sition point and no significant free fluid or contrast extravasation to suggest urine leak. 3. Dependent atelectasis in the bilateral lower lobes. 4. Diffuse hepatic steatosis.
--- NOTE | ~2021-07-20 | CT_ITS ---
EXAMINATION: CT guide nephro tube pl LT DATE: 07/24/2021 10:16 INDICATION: Left ureteral injury. TECHNIQUE: The procedure including the risks, benefits, and alternatives was discussed with the patie nt. Risks discussed included bleeding and infection. The patient understood the risks and benefits an d agreed to proceed. The skin overlying the left kidney was prepped and draped in usual sterile fash ion. Anesthetic was administered with 1% lidocaine subcutaneously. An 18 gauge trochar needle was in serted into a calyx of the kidney under CT guidance. The needle was exchanged over a wire for 6 Frenc h and 8 Tajik dilators and then for an 8.5 Tajik pigtail catheter under CT guidance. The catheter w as stitched to the skin. A dressing was applied. The mA was adjusted according to patient size. Itera tive reconstruction technique was employed. The dose-length product was 514.99 mGy-cm. There were no immediate complications. FINDINGS: CT images demonstrate the nephrostomy tube in the renal pelvis. IMPRESSION: 1. Successful CT-guided left nephrostomy tube placement]. Reviewed, dictated and finalized at location A.
--- NOTE | ~2021-07-20 | XR_ITS ---
EXAMINATION: XR retrograde pyelogram LT DATE: 07/23/2021 15:17 INDICATION: Left hydronephrosis TECHNIQUE: A total of 261 fluoroscopic images of the abdomen and pelvis were obtained during left ret rograde Polygram performed by Dr. Rob. Radiologist was not present for the imaging or procedure. The amount of fluoroscopy time used during this procedure was 0.8 minutes. COMPARISON: CT dated 07/22/2021 FINDINGS: Surgical clips along the midline of the abdomen at the left lower quadrant likely related to recent a nd colostomy takedown and colonic reanastomosis. Subsequent images demonstrate cannulation of the lef t ureter and retrograde contrast injection. At the distal left ureter there is an abrupt transition p oint between normal caliber distal ureter and moderately dilated more proximal left ureter. There is extraluminal contrast extravasation which appears to infiltrate along soft tissue in the left pelvis likely in the retroperitoneum and consistent with and likely iatrogenic ureteral injury. IMPRESSION: 1. Likely iatrogenic left ureteral injury with retroperitoneal urine leak originating at the site of a focal stricture at the distal left ureter with moderate more proximal hydroureter. See procedure no te for further detail. Reviewed, dictated and finalized at location B. IMPRESSION: 1. Likely iatrogenic left ureteral injury with retroperitoneal urine leak origi nating at the site of a focal stricture at the distal left ureter with moderate more proximal hydroureter. See procedure note for further detail.
[2021-07-20 10:51] LABS: Glucose Point of Care 139 mg/dl (65-105)
[2021-07-20] MEDS: ACETAMINOPHEN 500 MG TABLET 1000 MG PO ×2 (10:57→18:59)
[2021-07-20] MEDS: LACTATED RINGERS 1,000 ML 30 ML IV CONT ×2 (10:57→15:40)
[2021-07-20] MEDS: KETOROLAC 15 MG/ML VIAL (*BKC) IV PUSH (10:58)
[2021-07-20] MEDS: ALVIMOPAN 12 MG CAPSULE PO (10:58)
--- NOTE | 2021-07-20 11:23 | WPDHPUPDATE1 ---
History and Physical Update Update Date/Time: 07/20/21 11:23 History and Physical has been reviewed, including an updated exam of the patient. There are NO changes in the patient's condition. Risks, benefits, and alternatives have been discussed and questions answered. Patient agrees to proceed with procedure.
--- NOTE | 2021-07-20 11:25 | PM.IMHP ---
H&P: HPI History of Present Illness Date/Time: 07/20/21 11:25 Chief Complaint: Colostomy status Narrative: 60 yo man presents for colostomy takedown. He reports no changes since last seen in office. He tolerated his prep. Review of Systems Review of Systems: All systems reviewed & are unremarkable except as noted in HPI and below Constitutional: Constitutional: Denies chills, Denies fever(s), Denies headache(s) and Denies weight loss Eyes: Eyes: Denies change in vision ENT: Denies dizziness, Denies headache(s), Denies neck mass and Denies throat swelling Cardiovascular: Cardiovascular: Denies chest pain, Denies lightheadedness and Denies dyspnea Respiratory: Respiratory: Denies cough, Denies dyspnea and Denies wheezing Gastrointestinal: Gastrointestinal: Denies abdominal pain, Denies change in bowel habits, Denies nausea and Denies vomiting Genitourinary: Genitourinary: Denies hematuria and Denies dysuria Musculoskeletal: Musculoskeletal: Reports as per HPI Integumentary/Breasts: Skin/Breast: Reports as per HPI Neurologic: Denies dizziness and Denies headache(s) Allergic/Immunologic: Allergic/Immunologic: Denies throat swelling and Denies wheezing [facility] Past Medical History Medical History Arthritis Chronic neck and left shoulder pain Depression with anxiety Diabetes mellitus HIV (human immunodeficiency virus infection) Hx of hyperlipidemia Hypertension Peripheral neuropathy Surgical History Surgical History H/O hand surgery Surgery to right hand after a fracture many years ago H/O neck surgery Around 2017 History of mandibular surgery Many years ago per patient Hx of umbilical hernia repair Status post Zoila procedure 05/2020 - Rectal exam under anesthesia, attempted removal of rectal foreign body, exploratory laparotomy, colotomy with removal of rectal foreign body, sigmoid colectomy with end descending colostomy Family History Family History Mother Diabetes mellitus Hypertension Myocardial infarct Hypercholesteremia Sibling Diabetes mellitus Myocardial infarct Sibling Diabetes mellitus Sibling Diabetes mellitus Sibling Diabetes mellitus Sibling Diabetes mellitus Myocardial infarct Father Lung cancer Social History Social History Social History: Mr. Huntley lives at home in [place] with his sister, Shyann. 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 He reports drinking around 2 to 3 beers per day on some days, some days none. He smokes marijuana daily for pain and anxiety. He denies other substance use. Never tobacco smoker. His PCP is Dr Juan Flores. He designates his sister, Shyann, to be his surrogate decision maker and he is full code status. Smoking status: Never smoker Alcohol intake: current Drinks per week: 8 Substance use: current Substance use type: marijuana Other substance usage details: ~2014 USED METH FOR ABOUT A YEAR Living arrangements: with family Additional living arrangements comments: SISTER Additional occupation/education comments: disabled Gender identity (if verbalized by the patient): Male Spiritual care concerns: No Meds Home Medications and Allergies Home Medications Medication Instructions Recorded Confirmed Type Odefsey 1 tablet PO HS 12/07/19 07/11/21 History lisinopril 20 mg PO HS 12/07/19 07/11/21 History metformin 500 mg PO HS 12/07/19 07/11/21 History pravastatin 20 mg PO HS 12/07/19 07/11/21 History sertraline 100 mg tablet 100 mg PO HS 05/30/21 07/11/21 History erythromycin 500 mg tablet See Rx Instructions .ROUTE 06/21/21 07/11/21 Rx .COMPLEX #6 tablet neomycin 500 mg tablet See Rx Instructions .ROUTE 06/21/21 07/11/21 Rx .COMPLEX #6 tablet
[2021-07-20] MEDS: ceFAZolin 2 GM/D5W 50 ML 2 GM/50 ML BAG IVPB ×2 (12:04→21:16)
--- NOTE | 2021-07-20 15:40 | W.PM.PROC2 ---
Procedure Note - Detailed Date of Procedure 07/20/21 Pre-op Diagnosis Colostomy Status Post-op Diagnosis Same Procedure Performed 1. Takedown of colostomy with sigmoid resection and colorectal anastomosis 2. Appendectomy Surgeon Antoni Pinon DO Assistant Infant Teacher Jorgito Ernst MD Anesthesia General Indications This is a 60-year-old man who has a diverting colostomy from 1 year ago. He has a history of a rectal foreign body that had to be removed via colotomy and diverting colostomy. He now presents for takedown of colostomy. Findings Colostomy takedown was performed. The patient had a lot of adhesions down in the pelvis which made identifying the rectal stump very difficult initially. The tip of the appendix was adherent down directly over the rectal staple line. Due to how adhesed it was the decision was made to remove the appendix so that it was no longer in the way of the rectal stump. The appendix was sent to the lab for pathology. The suture line from the rectal stump was identified but the right rectum appeared very weak and tore easily with dissection around this area. I had to dissect further distal on the rectum and identify an area of the rectum that appeared healthy and viable. A contour staple was used to come across rectal stump just beyond the previous suture line and the upper rectum was excised sent to the lab for pathology. The patient also had plenty of redundant sigmoid colon and in order to bring the colon down to the pelvis I chose to excise the distal 6 in of the sigmoid colon along with the colostomy to allow for anastomosis. The EEA sizers were used to identify proper size for the anastomosis and decision was made to use at 25 mm EEA stapler. The anastomosis was performed and leak test showed no evidence of air bubbles when the pelvis was filled with saline. The anastomosis appeared healthy and viable. Dr. Ernst assisted with identifying the critical portions of the procedure and he performed the proctoscopy and rectal part of the anastomosis. Description of Procedure Procedure as well as risks, benefits, and alternatives were discussed with the patient. Written consent was obtained placed in chart prior to procedure. Patient was brought back to surgical suite. He was placed supine on operating table. Time-out was done to confirm patient and procedure. He was then intubated by the anesthesia department. He was placed lithotomy position. His abdomen was prepped and draped in sterile fashion using chlorhexidine prep. His rectum and perirectal area was prepped and draped in sterile fashion using Betadine prep. A 20 cm vertical midline incision was made in abdomen using 10 blade scalpel. Electrocautery was used for hemostasis and for dissection to subcutaneous tissue. The fascia was then entered using electrocautery. The peritoneal cavity was then entered using electrocautery. There were some adhesions along the midline abdominal wall that were carefully taken down using blunt dissection and electrocautery. I then eventually was able to clear the abdominal wall enough to place a wound protector. An Ymoi wound protector was then placed and the pelvis was carefully inspected. Adhesions were carefully taken down using blunt dissection and electrocautery. I was able to identify the suture line from the rectal stump and the adhesions were carefully freed up around this. There appeared to be an opening in the rectal stump right at the suture line, therefore I had to dissect further distally on the rectum to identify healthy viable rectum. The mesorectum was carefully taken down using LigaSure bipolar cautery. I then came across the rectal stump with a green contour stapler and clamped and fired the stapler just beyond the previous suture line. The rectal stump was excised and sent to the lab for pathology. I then identified an area on the sigmoid colon that appeared safe to bring down into the pelvis without tension. A window w
[2021-07-20] MEDS: ePHEDrine sulfate INJ 50 MG/ML AMPUL 25 MG IM (16:01)
[2021-07-20] MEDS: fentaNYL CITRATE INJ (*CRX) 100 MCG/2 ML VIAL 25 MCG IV PUSH ×2 (16:18→16:57)
--- NOTE | 2021-07-20 16:41 | SUR.PHASEI ---
Notified Dr Katz regarding urine output 15ml past hour. He's ok with this and suggests the toradol is the cause and patient who has had 3L LR does not need more fluid.
--- NOTE | 2021-07-20 17:45 | ADMGEN ---
This patient, Montrell Huntley, was admitted to 2 Medical Room 260-01. Patient/family oriented to hospital policies and general routines including ID bracelet, bed and alarms, visiting hours, pain management, procedures, bathroom and other care routines, personal items, smoking policy, room service/diet, and visiting hours. Information on how to activate the Rapid Response Team has been discussed. Patient/Family are encouraged to report perceived risks to care and to ask questions if they do not understand what they are told or what they should do.
[2021-07-20] MEDS: LACTATED RINGERS 1,000 ML 100 ML IV CONT (18:55)
[2021-07-20] MEDS: SERTRALINE HCL 50 MG TABLET 100 MG PO (21:19)
[2021-07-20] MEDS: oxyCODONE HCL (*CRX) 5 MG TAB IR PO (22:17)
[2021-07-21 02:57] VITALS: BP 110/72; PULSE 115; RESP 20; TEMP 36.1; O2SAT 96
[2021-07-21] MEDS: ceFAZolin 2 GM/D5W 50 ML 2 GM/50 ML BAG IVPB (03:18)
[2021-07-21 05:39] LABS: Anion Gap 5 mmol/L (8-16); Blood Urea Nitrogen 11 mg/dL (9-20); Calcium 7.7 mg/dL (8.4-10.2); Carbon Dioxide 23 mmol/L (22-30); Chloride 105 mmol/L (98-107); Estimated CRCL calculation 51 ml/min; Estimated Glomerular Filt Rate 51; Glucose 180 mg/dL (65-110); Potassium 3.9 mmol/L (3.4-5.0); Sodium 133 mmol/L (137-145)
[2021-07-21 05:51] LABS: Basophils Percent Auto 0.1 % (0.2-1.2); Eosinophils Percent Auto 0.1 % (0-4.4); Hematocrit 38.1 % (42.0-52.0); Hemoglobin 13.1 g/dL (14.0-18.0); Immature Granulocyte Absolute 0.03 K/mm3 (0.00-0.031); Immature Granulocyte Percent A 0.4 % (0-0.5); Lymphocytes Percent Auto 11.2 % (18.3-44.2); Mean Corpuscular HGB Conc 34.4 g/dl (32-36); Monocytes Absolute Auto 0.6 K/mm3 (0.1-0.6); Monocytes Percent Auto 6.9 % (2.6-8.5); Neutrophils Absolute Auto 6.5 K/mm3 (1.3-6.7); Neutrophils Percent Auto 81.3 % (45.5-73.1); Platelet Count Result 147 k/mm3 (150-375); Red Blood Count 3.97 M/mm3 (4.6-6.20); Red Cell Distribution Width 12.8 % (11.5-14.5)
[2021-07-21] MEDS: ACETAMINOPHEN 500 MG TABLET 1000 MG PO ×4 (06:31→17:19)
[2021-07-21 07:19] VITALS: BP 112/74; PULSE 108; RESP 20; TEMP 36.6; O2SAT 97
[2021-07-21] MEDS: ENOXAPARIN 40 MG/0.4 ML SYRINGE SUB-Q (08:34)
[2021-07-21] MEDS: oxyCODONE HCL (*CRX) 5 MG TAB IR PO ×2 (09:55→21:40)
--- NOTE | 2021-07-21 10:28 | PM.PNGS ---
Progress Note: A&P Assessment and Plan (1) Encounter for surgical aftercare following surgery on the digestive system: Code(s): Z48.815 - Encounter for surgical aftercare following surgery on the digestive system Status: Acute Assessment and Plan: doing well, miner out today, cont clears and await bowel fxn, encourage OOB/IS Subjective Subjective Date/Time Seen: 07/21/21 10:28 feels ok, some incisional soreness, feels some gas this am Review of Systems Review of Systems: All systems reviewed & are unremarkable except as noted in HPI and below Exam Const: General: cooperative, comfortable and no acute distress Resp: Effort & Inspection: normal respiratory effort Auscultation: clear to auscultation bilaterally Cardio: Rate: regular rate Rhythm: regular rhythm GI: Inspection: normal to inspection, distended and incision GI Palp: Yes Soft to palpation, Yes Tenderness to palpation present (GI), No Guarding due to palpation present (GI) and No Rigid due to palpation Objective Data Vital Signs Vital Signs: Vital Signs - 24 hr 07/20/21 10:51 07/20/21 15:40 07/20/21 15:55 Temperature 36.6 C 36.4 C L Pulse Rate 97 83 87 Respiratory Rate 14 15 16 Blood Pressure 120/76 75/52 L 88/59 L Pulse Oximetry 100 100 100 07/20/21 16:10 07/20/21 16:25 07/20/21 16:40 Temperature Pulse Rate 95 94 102 H Respiratory Rate 13 17 18 Blood Pressure 103/63 116/67 116/73 Pulse Oximetry 100 100 98 07/20/21 16:55 07/20/21 17:10 07/20/21 17:25 Temperature Pulse Rate 100 100 108 H Respiratory Rate 18 14 21 H Blood Pressure 104/57 L 123/80 131/74 Pulse Oximetry 100 99 99 07/20/21 17:45 07/20/21 18:00 07/20/21 18:30 Temperature 36.3 C L 36.4 C 36.4 C Pulse Rate 106 H 109 H 111 H Respiratory Rate 20 20 20 Blood Pressure 137/81 132/82 131/84 Pulse Oximetry 98 98 98 07/20/21 19:19 07/20/21 23:19 07/21/21 02:57 Temperature 35.9 C L 36.2 C L 36.1 C L Pulse Rate 114 H 110 H 115 H Respiratory Rate 18 20 20 Blood Pressure 118/76 105/61 110/72 Pulse Oximetry 97 96 96 07/21/21 07:19 Temperature 36.6 C Pulse Rate 108 H Respiratory Rate 20 Blood Pressure 112/74 Pulse Oximetry 97 Intake/Output Intake/Output: Intake & Output 07/18/21 07/19/21 07/20/21 07/21/21 23:59 23:59 23:59 23:59 Intake Total 600 1050 Output Total 15 300 Balance 585 750 Meds/Results Medications: Active Medications Generic Name Dose Route Start Last Admin Trade Name Freq PRN Reason Stop Dose Admin Acetaminophen 1,000 mg 07/20/21 18:00 07/21/21 06:31 Acetaminophen 500 Mg Tablet PO 1,000 mg Q6HR MARCUS Administration Alvimopan 12 mg 07/21/21 21:00 Alvimopan 12 Mg Capsule PO 07/28/21 20:59 Q12HR MARCUS Enoxaparin Sodium 40 mg 07/21/21 09:00 07/21/21 08:34 Enoxaparin 40 Mg/0.4 Ml Syringe SUB-Q 40 mg DAILY MARCUS Administration Hydromorphone HCl 1 mg 07/20/21 17:34 Hydromorphone Hcl Inj (*Crx) 1 Mg/Ml Syr IV PUSH Q2H PRN Pain Rated 7-10 Hydromorphone HCl 0.5 mg 07/20/21 17:34 Hydromorphone Hcl Inj (*Crx) 1 Mg/Ml Syr IV PUSH Q2H PRN Pain Rated 4-6 Lactated Ringer's 1,000 mls @ 100 mls/hr 07/20/21 17:34 07/20/21 18:55 Lr - Lactated Ringers Iv IV CONT 100 mls/hr .Q10H MARCUS Administration Ondansetron HCl 4 mg 07/20/21 17:34 Ondansetron Inj 4 Mg/2 Ml Vial IV PUSH Q4H PRN Nausea And Vomiting Oxycodone HCl 5 mg 07/20/21 17:34 07/21/21 09:55 Oxycodone Hcl (*Crx) 5 Mg Tab Ir PO 5 mg Q4H PRN Administration Pain Rated 4-6 Oxycodone HCl 10 mg 07/20/21 17:34 Oxycodone Hcl (*Crx) 5 Mg Tab Ir PO Q4H PRN Pain Rated 7-10 Sertraline HCl 100 mg 07/20/21 21:00 07/20/21 21:19 Sertraline Hcl 50 Mg Tablet PO 100 mg HS MARCUS Administration Labs Labs: Laboratory Results - last 24 hr 07/20/21 07/21/21 07/21/21 10:48 04:58 04:58 WBC 8.0 RBC 3.97 L Hgb 13.1 L Hct 38.1 L MCV
[2021-07-21 11:30] VITALS: BP 115/76; PULSE 115; RESP 22; TEMP 36.8; O2SAT 98
[2021-07-21] MEDS: LACTATED RINGERS 1,000 ML 100 ML IV CONT ×2 (11:32→21:40)
[2021-07-21 15:19] VITALS: BP 119/72; PULSE 104; RESP 20; TEMP 36.4; O2SAT 96
[2021-07-21] MEDS: SERTRALINE HCL 50 MG TABLET 100 MG PO (20:40)
[2021-07-21] MEDS: ALVIMOPAN 12 MG CAPSULE PO (20:40)
[2021-07-21 23:17] VITALS: BP 127/77; PULSE 100; RESP 16; TEMP 36.7; O2SAT 96
[2021-07-22] MEDS: ACETAMINOPHEN 500 MG TABLET 1000 MG PO ×4 (00:07→17:05)
[2021-07-22] MEDS: oxyCODONE HCL (*CRX) 5 MG TAB IR 10 MG PO ×3 (03:11→14:08)
[2021-07-22 05:28] LABS: Basophils Percent Auto 0.4 % (0.2-1.2); Eosinophils Absolute Auto 0.1 K/mm3 (0-0.3); Immature Granulocyte Absolute 0.02 K/mm3 (0.00-0.031); Immature Granulocyte Percent A 0.3 % (0-0.5); Lymphocytes Absolute Auto 1.05 K/mm3 (0.9-3.2); Lymphocytes Percent Auto 15.2 % (18.3-44.2); Mean Corpuscular HGB Conc 32.4 g/dl (32-36); Mean Corpuscular Hemoglobin 33.1 pg (26-34); Mean Corpuscular Volume 101.9 fl (80-100); Mean Platelet Volume 10.2 fl (7.4-10.4); Monocytes Absolute Auto 0.5 K/mm3 (0.1-0.6); Monocytes Percent Auto 7.6 % (2.6-8.5); Neutrophils Absolute Auto 5.2 K/mm3 (1.3-6.7); Neutrophils Percent Auto 75.5 % (45.5-73.1); Platelet Count Result 132 k/mm3 (150-375); Red Blood Count 3.63 M/mm3 (4.6-6.20); Red Cell Distribution Width 13.1 % (11.5-14.5); White Blood Count 6.9 K/mm3 (4.5-10.0)
[2021-07-22 05:39] LABS: Anion Gap 5 mmol/L (8-16); Blood Urea Nitrogen 13 mg/dL (9-20); Calcium 8.1 mg/dL (8.4-10.2); Carbon Dioxide 22 mmol/L (22-30); Chloride 103 mmol/L (98-107); Estimated CRCL calculation 48 ml/min; Estimated Glomerular Filt Rate 47; Glucose 160 mg/dL (65-110); Potassium 4.2 mmol/L (3.4-5.0); Sodium 130 mmol/L (137-145)
[2021-07-22 06:20] VITALS: BP 148/80; PULSE 100; RESP 14; TEMP 36.6; O2SAT 98
--- NOTE | 2021-07-22 07:58 | PM.PNGS ---
Progress Note: A&P Assessment and Plan (1) Encounter for surgical aftercare following surgery on the digestive system: Code(s): Z48.815 - Encounter for surgical aftercare following surgery on the digestive system Status: Acute Assessment and Plan: doing well, soft diet today, encourage OOB/IS, home soon Subjective Subjective Date/Time Seen: 07/22/21 07:58 feels good, +bowel fxn, karis clears Review of Systems Review of Systems: All systems reviewed & are unremarkable except as noted in HPI and below Exam Const: General: cooperative, comfortable and no acute distress Resp: Auscultation: clear to auscultation bilaterally Cardio: Rate: regular rate Rhythm: regular rhythm GI: Inspection: normal to inspection and incision GI Palp: Yes abdominal tenderness, Yes Soft to palpation and Yes Tenderness to palpation present (GI) Objective Data Vital Signs Vital Signs: Vital Signs - 24 hr 07/21/21 11:30 07/21/21 15:19 07/21/21 23:17 Temperature 36.8 C 36.4 C 36.7 C Pulse Rate 115 H 104 H 100 Respiratory Rate 22 H 20 16 Blood Pressure 115/76 119/72 127/77 Pulse Oximetry 98 96 96 07/22/21 06:20 Temperature 36.6 C Pulse Rate 100 Respiratory Rate 14 Blood Pressure 148/80 H Pulse Oximetry 98 Intake/Output Intake/Output: Intake & Output 07/19/21 07/20/21 07/21/21 07/22/21 23:59 23:59 23:59 23:59 Intake Total 600 4910 250 Output Total 15 950 150 Balance 585 3960 100 Meds/Results Medications: Active Medications Generic Name Dose Route Start Last Admin Trade Name Freq PRN Reason Stop Dose Admin Acetaminophen 1,000 mg 07/20/21 18:00 07/22/21 05:17 Acetaminophen 500 Mg Tablet PO 1,000 mg Q6HR MARCUS Administration Alvimopan 12 mg 07/21/21 21:00 07/21/21 20:40 Alvimopan 12 Mg Capsule PO 07/28/21 20:59 12 mg Q12HR MARCUS Administration Enoxaparin Sodium 40 mg 07/21/21 09:00 07/21/21 08:34 Enoxaparin 40 Mg/0.4 Ml Syringe SUB-Q 40 mg DAILY MARCUS Administration Hydromorphone HCl 1 mg 07/20/21 17:34 Hydromorphone Hcl Inj (*Crx) 1 Mg/Ml Syr IV PUSH Q2H PRN Pain Rated 7-10 Hydromorphone HCl 0.5 mg 07/20/21 17:34 Hydromorphone Hcl Inj (*Crx) 1 Mg/Ml Syr IV PUSH Q2H PRN Pain Rated 4-6 Lactated Ringer's 1,000 mls @ 100 mls/hr 07/20/21 17:34 07/21/21 21:40 Lr - Lactated Ringers Iv IV CONT 100 mls/hr .Q10H MARCUS Administration Ondansetron HCl 4 mg 07/20/21 17:34 Ondansetron Inj 4 Mg/2 Ml Vial IV PUSH Q4H PRN Nausea And Vomiting Oxycodone HCl 5 mg 07/20/21 17:34 07/21/21 21:40 Oxycodone Hcl (*Crx) 5 Mg Tab Ir PO 5 mg Q4H PRN Administration Pain Rated 4-6 Oxycodone HCl 10 mg 07/20/21 17:34 07/22/21 03:11 Oxycodone Hcl (*Crx) 5 Mg Tab Ir PO 10 mg Q4H PRN Administration Pain Rated 7-10 Sertraline HCl 100 mg 07/20/21 21:00 07/21/21 20:40 Sertraline Hcl 50 Mg Tablet PO 100 mg HS MARCUS Administration Labs Labs: Laboratory Results - last 24 hr 07/22/21 07/22/21 05:21 05:21 WBC 6.9 RBC 3.63 L Hgb 12.0 L Hct 37.0 L MCV 101.9 H D MCH 33.1 MCHC 32.4 RDW 13.1 Plt Count 132 L MPV 10.2 Immature Gran % (Auto) 0.3 Neut % (Auto) 75.5 H Lymph % (Auto) 15.2 L Larue % (Auto) 7.6 Eos % (Auto) 1.0 Baso % (Auto) 0.4 Lymph # (Auto) 1.05 Larue # (Auto) 0.5 Eos # (Auto) 0.1 Baso # (Auto) 0.0 Abs Immat Gran (auto) 0.02 Absolute Neuts (auto) 5.2 Absolute Nucleated RBC 0.0 Nucleated RBC % 0.0 Sodium 130 L Potassium 4.2 Chloride 103 Carbon Dioxide 22 Anion Gap 5 L BUN 13 Creatinine 1.50 H Estim Creat Clear Calc 48 Estimated GFR 47 L Glucose 160 H Calcium 8.1 L
[2021-07-22] MEDS: LACTATED RINGERS 1,000 ML 100 ML IV CONT ×2 (08:15→19:18)
[2021-07-22] MEDS: ENOXAPARIN 40 MG/0.4 ML SYRINGE SUB-Q (08:15)
[2021-07-22] MEDS: ALVIMOPAN 12 MG CAPSULE PO ×2 (08:16→20:27)
[2021-07-22 14:43] VITALS: BP 154/86; PULSE 111; RESP 16; TEMP 37.2; O2SAT 94
[2021-07-22] MEDS: ONDANSETRON INJ 4 MG/2 ML VIAL IV PUSH (18:33)
[2021-07-22 20:00] VITALS: BP 148/95; PULSE 112; RESP 16; TEMP 36.4; O2SAT 94
[2021-07-22] MEDS: SERTRALINE HCL 50 MG TABLET 100 MG PO (20:27)
[2021-07-22 22:00] VITALS: BP 148/95; PULSE 112; RESP 16; TEMP 36.4; O2SAT 94
[2021-07-23] VITALS (17 sets, daily range): BP systolic 130–156; BP diastolic 80–98; PULSE 88–101; RESP 12–20; TEMP 36.4–37.4; O2SAT 94–98
[2021-07-23] MEDS: ACETAMINOPHEN 500 MG TABLET 1000 MG PO ×5 (00:25→23:57)
[2021-07-23] MEDS: oxyCODONE HCL (*CRX) 5 MG TAB IR 10 MG PO ×2 (02:25→20:56)
[2021-07-23] MEDS: LACTATED RINGERS 1,000 ML 100 ML IV CONT ×2 (06:13→23:56)
[2021-07-23 06:22] LABS: Basophils Percent Auto 0.5 % (0.2-1.2); Eosinophils Absolute Auto 0.2 K/mm3 (0-0.3); Eosinophils Percent Auto 2.7 % (0-4.4); Hematocrit 32.6 % (42.0-52.0); Hemoglobin 11.3 g/dL (14.0-18.0); Immature Granulocyte Absolute 0.04 K/mm3 (0.00-0.031); Immature Granulocyte Percent A 0.7 % (0-0.5); Lymphocytes Absolute Auto 0.97 K/mm3 (0.9-3.2); Lymphocytes Percent Auto 17.6 % (18.3-44.2); Mean Corpuscular HGB Conc 34.7 g/dl (32-36); Mean Corpuscular Hemoglobin 33.2 pg (26-34); Mean Corpuscular Volume 95.9 fl (80-100); Mean Platelet Volume 9.7 fl (7.4-10.4); Monocytes Absolute Auto 0.4 K/mm3 (0.1-0.6); Monocytes Percent Auto 7.8 % (2.6-8.5); Neutrophils Absolute Auto 3.9 K/mm3 (1.3-6.7); Neutrophils Percent Auto 70.7 % (45.5-73.1); Platelet Count Result 155 k/mm3 (150-375); Red Cell Distribution Width 12.6 % (11.5-14.5); White Blood Count 5.5 K/mm3 (4.5-10.0)
[2021-07-23 06:34] LABS: Anion Gap 5 mmol/L (8-16); Blood Urea Nitrogen 13 mg/dL (9-20); Calcium 8.2 mg/dL (8.4-10.2); Carbon Dioxide 26 mmol/L (22-30); Chloride 103 mmol/L (98-107); Estimated CRCL calculation 48 ml/min; Estimated Glomerular Filt Rate 47; Glucose 134 mg/dL (65-110); Potassium 3.9 mmol/L (3.4-5.0); Sodium 134 mmol/L (137-145)
[2021-07-23] MEDS: ALVIMOPAN 12 MG CAPSULE PO ×2 (08:06→20:57)
[2021-07-23] MEDS: ENOXAPARIN 40 MG/0.4 ML SYRINGE SUB-Q (08:06)
--- NOTE | 2021-07-23 12:46 | WPDURCON ---
Assessment and Plan Assessment and plan (1) JUNI (acute kidney injury): Code(s): N17.9 - Acute kidney failure, unspecified Status: Acute Assessment and Plan: Increased to 1.50 today from 0.90 on 07/11/21. (2) Hydronephrosis, left: Code(s): N13.30 - Unspecified hydronephrosis Status: Acute Assessment and Plan: Plan to go to the OR today with Dr. Rob for a Cystoscopy, left ureteroscopy with stent placement and left retrograde pyelogram. Obtain consent, keep NPO. D/t new onset of left hydronephrosis, that parallel's the new onset of left flank pain and a rising creatinine, it is best to further evaluate with a cysto and place a stent to resolve JUNI and hydronephrosis/flank pain. Urology Consult Note HPI Date Seen: 07/23/21 Requesting Physician: Antoni Pinon DO Primary Care Provider: Juan Flores MD Consult Narrative Narrative: Montrell Huntley is a 60 year old male who is s/p takedown of colostomy with sigmoid resection and colorectal anastomosis and appendectomy. He had a miner removed over the weekend and is doing well urinating, he denies dysuria, hematuria, straining, hesitancy or pelvic pain. However, he does c/o left flank pain that is new in the past few days since his abdominal procedure. He is afebrile and has no history of acute flank pain such as this. A CT scan was then performed yesterday on 07/22/21 showing new mild left hydroureteronephrosis with transition point near the site of the colonic anastomosis where the ureter passes anterior to the left internal iliac artery. No surgical clip or other obstructing lesion identified at the transition point and no significant free fluid or contrast extravasation to suggest urine leak. This is new in comparison to the CT done last month. His creatinine is elevated as from his baseline of 0.90 from 07/11/21 to now 1.50 today and has been consistently elevated for the past few days. His WBC remains normal. Review of Systems Cardiovascular: Cardiovascular: Denies chest pain Respiratory: Respiratory: Reports no additional respiratory complaints Gastrointestinal: Gastrointestinal: Reports abdominal pain (s/p appendectomy and colorectal anastomosis and sigmoid resection ), Denies nausea and Denies vomiting Genitourinary: Genitourinary: Denies hematuria, Denies dysuria, Reports flank pain, Denies urinary frequency, Denies urinary hesitancy, Denies urinary incontinence and Denies urinary urgency [facility] Past Medical History Medical History Arthritis Chronic neck and left shoulder pain Depression with anxiety Diabetes mellitus HIV (human immunodeficiency virus infection) Hx of hyperlipidemia Hypertension Peripheral neuropathy Surgical History Surgical History H/O hand surgery Surgery to right hand after a fracture many years ago H/O neck surgery Around 2017 History of mandibular surgery Many years ago per patient Hx of umbilical hernia repair Status post Zoila procedure 05/2020 - Rectal exam under anesthesia, attempted removal of rectal foreign body, exploratory laparotomy, colotomy with removal of rectal foreign body, sigmoid colectomy with end descending colostomy Family History Family History Mother Diabetes mellitus Hypertension Myocardial infarct Hypercholesteremia Sibling Diabetes mellitus Myocardial infarct Sibling Diabetes mellitus Sibling Diabetes mellitus Sibling Diabetes mellitus Sibling Diabetes mellitus Myocardial infarct Father Lung cancer Social History Social History Social History: Mr. Huntley lives at home in [place] with his sister, Shyann. 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 He reports drinking around 2 to 3 beers per day on some
--- NOTE | 2021-07-23 13:05 | PC.NURSE ---
Patient left for surgery apprx [id number]
[2021-07-23] MEDS: LACTATED RINGERS 1,000 ML 30 ML IV CONT (13:30)
--- NOTE | 2021-07-23 13:36 | WPDHPUPDATE1 ---
History and Physical Update Update Date/Time: 07/23/21 13:36 History and Physical has been reviewed, including an updated exam of the patient. There are NO changes in the patient's condition. Risks, benefits, and alternatives have been discussed and questions answered. Patient agrees to proceed with procedure. Planning for cystoscopy, left retrograde pyelogram, left stent placement
--- NOTE | 2021-07-23 14:22 | WPDANESEFPP ---
Anes - Eval Final PreProcedure Day of Procedure 07/23/21 14:22 Patient weight: overweight Heart: regular rate and rhythm Lungs: clear to auscultation Airway: Mallampati scale class II Neurological: alert and oriented Last oral intake: >/= 8 hours ASA classification: III Emergent: no Anesthetic plan: proceed Anesthesia type and monitoring: general GIVS and standard monitoring Results Review: All pre-operative results and documents have been reviewed as part of the pre-operative evaluation. Informed Consent: The patient's anesthetic plan and its attendant risks and benefits were discussed with the patient/family/POA. Questions were solicited and answers provided to the satisfaction of the patient/family/POA.
[2021-07-23] MEDS: ceFAZolin SODIUM 1 GM VIAL 2 GM IV PUSH (14:45)
--- NOTE | 2021-07-23 14:59 | SUR.OPER ---
Dr Pinon in room observation [id number].
[2021-07-23] MEDS: LIDOCAINE HCL 2% GEL UROJET 10 ML PKG MUCOUS MEM (15:09)
[2021-07-23 15:29] LABS: Glucose Point of Care 120 mg/dl (65-105)
--- NOTE | 2021-07-23 15:37 | P.OP_ITS ---
Procedure Note - Detailed Date of Procedure 07/23/21 Pre-op Diagnosis Left hydronephrosis Post-op Diagnosis Same Procedure Performed Cystoscopy, left retrograde pyelogram, left ureteroscopy Surgeon Félix Rob MD Anesthesia MAC Indications This is a patient who underwent a colostomy takedown on Friday. It was apparently quite a complicated procedure with significant scarring in the pelvis. Postoperative please had elevated creatinine in the 1.5. He has had some left-sided flank pain. Cystoscopy shows mild left hydronephrosis. He is here today for evaluation of his ureter Findings He looks to have a complete transection at the S2 level of his left ureter. This was confirmed on ureteroscopy. Communication with the upper ureter was not possible Description of Procedure He is correctly identified. Informed consent obtained. From the operating room. He was given MAC anesthesia. He was placed in dorsal lithotomy position. Pressure points were padded. He was given appropriate perioperative antibiotics. A time-out performed. Cystoscopy revealed a normal appearing bladder. Both ureteral orifices were normal. There is no tumors in the bladder. I did a retrograde pyelogram on the left. Initially the distal ureter was delicate and non hydronephrotic. There was then extravasation and hydronephrosis with a termination of the ureter at the level of S2. No dye was seen going to the proximal ureter. In appeared a blunt ending. I spoke with the general surgeon. This seemed consistent with potential a LigaSure of the ureter. I placed a guidewire into the ureter and again did not go into the upper ureter. It appeared to stop at the level of contrast. I decided to perform ureteroscopy. I placed a guidewire back into the ureter. I was then able to negotiate a rigid ureteral scope up the ureter. To the place of termination of the contrast. At this point I discovered a complete transection of the ureter. I some retroperitoneal fat but was unable to visualize a more p roximal ureter. This point the bladder was drained. The procedure was terminated. Uro jet was applied. He was awakened transferred to PACU in stable condition. Drains No Packing No Pathology None sent Complications No immediate complications Condition Stable Disposition PACU
[2021-07-23] MEDS: fentaNYL CITRATE INJ (*CRX) 100 MCG/2 ML VIAL 25 MCG IV PUSH ×2 (16:01→16:04)
[2021-07-23] MEDS: HYDROmorphone HCL INJ (*CRX) 1 MG/ML SYR IV PUSH (18:58)
[2021-07-23] MEDS: PRAVASTATIN SODIUM 20 MG TABLET PO (20:57)
[2021-07-23] MEDS: metFORMIN HCL 500 MG TABLET PO (20:57)
[2021-07-23] MEDS: SERTRALINE HCL 50 MG TABLET 100 MG PO (20:57)
[2021-07-23] MEDS: lisinopriL 20 MG TABLET PO (20:57)
[2021-07-24 00:18] VITALS: BP 150/80; PULSE 96; RESP 18; TEMP 36.2; O2SAT 97
[2021-07-24] MEDS: HYDROmorphone HCL INJ (*CRX) 1 MG/ML SYR IV PUSH ×2 (02:45→04:50)
[2021-07-24 06:00] VITALS: BP 135/87; PULSE 89; RESP 16; TEMP 36.5; O2SAT 95
--- NOTE | 2021-07-24 06:48 | WPDUROPN2 ---
Progress Note: A&P Assessment and Plan (1) Hydronephrosis, left: Code(s): N13.30 - Unspecified hydronephrosis Status: Acute (2) JUNI (acute kidney injury): Code(s): N17.9 - Acute kidney failure, unspecified Status: Acute (3) Left ureteral injury: Code(s): S37.10XA - Unspecified injury of ureter, initial encounter Status: Acute Assessment and Plan: Long discussion with pt. this morning about anticipated course of action for left ureteral injury -> left nephrostomy tube x2-3 months followed by attempted ureteral reimplantation ([place] ureter or ileal interposition) with possibility of left nephrectomy - all explained to pt. Subjective Subjective Date/Time Seen: 07/24/21 06:48 Comfortable, no complaints Review of Systems Cardiovascular: Cardiovascular: Denies chest pain, Denies lightheadedness, Denies palpitations and Denies dyspnea Respiratory: Respiratory: Denies dyspnea Gastrointestinal: Gastrointestinal: Denies diarrhea, Denies nausea and Denies vomiting Genitourinary: Genitourinary: Denies hematuria and Denies dysuria Endocrine: Endocrine: Denies palpitations Exam Const: General: no acute distress Resp: Effort & Inspection: normal respiratory effort GI: Inspection: non-distended GI Palp: No abdominal tenderness and No Guarding due to palpation present (GI) Auscultation: normal bowel sounds Objective Data Vital Signs Vital Signs: Vital Signs - 24 hr 07/23/21 07:30 07/23/21 10:46 07/23/21 12:56 Temperature 98.3 F 97.6 F Pulse Rate 95 96 Respiratory Rate 16 18 Blood Pressure 145/83 H 156/89 H Pulse Oximetry 95 96 Oxygen Delivery Room Air Room Air 07/23/21 15:20 07/23/21 15:15 07/23/21 15:30 Temperature 97.8 F Pulse Rate 97 90 91 Respiratory Rate 19 16 18 Blood Pressure 140/95 H 130/92 H 132/88 Pulse Oximetry 98 96 96 Oxygen Delivery Room Air Room Air Room Air 07/23/21 15:45 07/23/21 16:01 07/23/21 16:15 Temperature Pulse Rate 90 91 92 Respiratory Rate 16 18 16 Blood Pressure 137/86 147/93 H 148/90 H Pulse Oximetry 96 97 96 Oxygen Delivery Room Air Room Air Room Air 07/23/21 16:30 07/23/21 16:50 07/23/21 17:05 Temperature 98.3 F 98.1 F Pulse Rate 88 95 92 Respiratory Rate 12 16 20 Blood Pressure 146/98 H 152/86 H 146/85 H Pulse Oximetry 95 98 97 Oxygen Delivery Room Air 07/23/21 17:59 07/23/21 18:49 07/23/21 20:05 Temperature 98.5 F 99.4 F Pulse Rate 93 96 100 Respiratory Rate 20 20 Blood Pressure 138/81 156/96 H Pulse Oximetry 96 96 94 Oxygen Delivery Room Air 07/23/21 20:00 07/24/21 00:18 07/24/21 06:00 Temperature 97.2 F L 97.7 F Pulse Rate 100 96 89 Respiratory Rate 20 18 16 Blood Pressure 150/80 H 135/87 Pulse Oximetry 94 97 95 Oxygen Delivery Room Air Intake/Output Intake/Output: Intake & Output 07/21/21 07/22/21 07/23/21 07/24/21 23:59 23:59 23:59 23:59 Intake Total 4910 5050 2940 300 Output Total 070 257 9044 1000 Balance 3960 4300 1710 -700 Meds/Results Medications: Active Medications Generic Name Dose Route Start Last Admin Trade Name Freq PRN Reason Stop Dose Admin Acetaminophen 1,000 mg 07/20/21 18:00 07/24/21 06:26 Acetaminophen 500 Mg Tablet PO Not Given Q6HR [facility] Alvimopan 12 mg 07/21/21 21:00 07/23/21 20:57 Alvimopan 12 Mg Capsule PO 07/28/21 20:59 12 mg Q12HR MARCUS Administration Enoxaparin Sodium 40 mg 07/21/21 09:00 07/23/21 08:06 Enoxaparin 40 Mg/0.4 Ml Syringe SUB-Q 40 mg DAILY MARCUS Administration Hydromorphone HCl 1 mg 07/20/21 17:34 07/24/21 04:50 Hydromorphone Hcl Inj (*Crx) 1 Mg/Ml Syr IV PUSH 1 mg Q2H PRN Administration Pain Rated 7-10 Hydromorphone HCl 0.5 mg 07/20/21 17:34 Hydromorphone Hcl Inj (*Crx) 1 Mg/Ml Syr IV PUSH Q2H PRN Pain Rated 4-6 Lactated Ringer's 1,000 mls @ 100 mls/hr 07/20/21 17:34 07/23/21 23:56 Lr - Lactated Ringers Iv IV CONT 100 mls/hr .Q10H S
[2021-07-24 08:05] LABS: Prothrombin Time 12.9 Seconds (11.1-14.7)
[2021-07-24 08:06] LABS: Partial Thromboplastin Time 35.8 SECONDS (22.3-36.8)
[2021-07-24] MEDS: ALVIMOPAN 12 MG CAPSULE PO ×2 (08:47→20:32)
[2021-07-24] MEDS: oxyCODONE HCL (*CRX) 5 MG TAB IR 10 MG PO ×2 (08:49→20:33)
[2021-07-24 10:00] VITALS: BP 144/86; PULSE 92; RESP 16; TEMP 36.7; O2SAT 95
[2021-07-24] MEDS: ACETAMINOPHEN 500 MG TABLET 1000 MG PO ×3 (11:28→23:05)
--- NOTE | 2021-07-24 13:00 | PM.PNGS ---
Progress Note: A&P Assessment and Plan (1) History of creation of ostomy: Code(s): Z93.9 - Artificial opening status, unspecified Status: Acute Assessment and Plan: Resume soft diet now that nephrostomy tube has been placed Will repeat labs in AM Possibly home tomorrow (2) JUNI (acute kidney injury): Code(s): N17.9 - Acute kidney failure, unspecified Status: Acute (3) Hydronephrosis, left: Code(s): N13.30 - Unspecified hydronephrosis Status: Acute (4) Left ureteral injury: Code(s): S37.10XA - Unspecified injury of ureter, initial encounter Status: Acute Assessment and Plan: Appreciate Urology input. Continue nephrostomy care. Monitor Cr. Subjective Subjective Date/Time Seen: 07/24/21 13:00 Interval history: Tolerated nephrostomy tube placement very well. Left flank pressure improved. Hungry. Exam GI: Inspection: incision (intact with misa) GI Palp: Yes Soft to palpation and Yes Tenderness to palpation present (GI) (incisional) Objective Data Vital Signs Vital Signs: Vital Signs - 24 hr 07/23/21 15:20 07/23/21 15:15 07/23/21 15:30 Temperature 36.6 C Pulse Rate 97 90 91 Respiratory Rate 19 16 18 Blood Pressure 140/95 H 130/92 H 132/88 Pulse Oximetry 98 96 96 Oxygen Delivery Room Air Room Air Room Air 07/23/21 15:45 07/23/21 16:01 07/23/21 16:15 Temperature Pulse Rate 90 91 92 Respiratory Rate 16 18 16 Blood Pressure 137/86 147/93 H 148/90 H Pulse Oximetry 96 97 96 Oxygen Delivery Room Air Room Air Room Air 07/23/21 16:30 07/23/21 16:50 07/23/21 17:05 Temperature 36.8 C 36.7 C Pulse Rate 88 95 92 Respiratory Rate 12 16 20 Blood Pressure 146/98 H 152/86 H 146/85 H Pulse Oximetry 95 98 97 Oxygen Delivery Room Air 07/23/21 17:59 07/23/21 18:49 07/23/21 20:05 Temperature 36.9 C 37.4 C Pulse Rate 93 96 100 Respiratory Rate 20 20 Blood Pressure 138/81 156/96 H Pulse Oximetry 96 96 94 Oxygen Delivery Room Air 07/23/21 20:00 07/24/21 00:18 07/24/21 06:00 Temperature 36.2 C L 36.5 C Pulse Rate 100 96 89 Respiratory Rate 20 18 16 Blood Pressure 150/80 H 135/87 Pulse Oximetry 94 97 95 Oxygen Delivery Room Air 07/24/21 09:09 07/24/21 10:00 Temperature 36.7 C Pulse Rate 92 Respiratory Rate 16 Blood Pressure 144/86 H Pulse Oximetry 95 Oxygen Delivery Room Air Intake/Output Intake/Output: Intake & Output 07/21/21 07/22/21 07/23/21 07/24/21 23:59 23:59 23:59 23:59 Intake Total 4910 5050 2940 300 Output Total 530 000 1628 1375 Balance 3960 4300 1710 -1075 Meds/Results Medications: Active Medications Generic Name Dose Route Start Last Admin Trade Name Freq PRN Reason Stop Dose Admin Acetaminophen 1,000 mg 07/20/21 18:00 07/24/21 11:28 Acetaminophen 500 Mg Tablet PO 1,000 mg Q6HR MARCUS Administration Alvimopan 12 mg 07/21/21 21:00 07/24/21 08:47 Alvimopan 12 Mg Capsule PO 07/28/21 20:59 12 mg Q12HR MARCUS Administration Enoxaparin Sodium 40 mg 07/21/21 09:00 07/24/21 08:00 Enoxaparin 40 Mg/0.4 Ml Syringe SUB-Q Not Given DAILY MARCUS Hydromorphone HCl 1 mg 07/20/21 17:34 07/24/21 04:50 Hydromorphone Hcl Inj (*Crx) 1 Mg/Ml Syr IV PUSH 1 mg Q2H PRN Administration Pain Rated 7-10 Hydromorphone HCl 0.5 mg 07/20/21 17:34 Hydromorphone Hcl Inj (*Crx) 1 Mg/Ml Syr IV PUSH Q2H PRN Pain Rated 4-6 Lactated Ringer's 1,000 mls @ 100 mls/hr 07/20/21 17:34 07/23/21 23:56 Lr - Lactated Ringers Iv IV CONT 100 mls/hr .Q10H MARCUS Administration Lactated Ringer's 1,000 mls @ 30 mls/hr 07/23/21 14:25 07/23/21 16:20 Lr - Lactated Ringers Iv IV CONT Infused .Q24H MARCUS Infusion Lactated Ringer's 1,000 mls @ 30 mls/hr 07/23/21 14:25 Lr - Lactated Ringers Iv IV CONT .Q24H MARCUS Lisinopril 20 mg 07/23/21 21:00 07/23/21 20:57 Lisinopril 20 Mg Tablet PO 20 mg HS MARCUS Administration Metformin HC
[2021-07-24 14:00] VITALS: BP 150/87; PULSE 90; RESP 16; TEMP 36.7; O2SAT 96
[2021-07-24] MEDS: LACTATED RINGERS 1,000 ML 100 ML IV CONT (17:45)
[2021-07-24 19:26] LABS: Glucose Point of Care 202 mg/dl (65-105)
[2021-07-24 20:00] VITALS: PULSE 90; RESP 16; O2SAT 96
[2021-07-24] MEDS: SERTRALINE HCL 50 MG TABLET 100 MG PO (20:33)
[2021-07-24] MEDS: lisinopriL 20 MG TABLET PO (20:33)
[2021-07-24] MEDS: PRAVASTATIN SODIUM 20 MG TABLET PO (20:33)
[2021-07-24] MEDS: metFORMIN HCL 500 MG TABLET PO (20:33)
[2021-07-24] MEDS: ONDANSETRON INJ 4 MG/2 ML VIAL IV PUSH (20:36)
[2021-07-24 22:00] VITALS: BP 143/77; PULSE 93; RESP 18; TEMP 36.3; O2SAT 95
[2021-07-25] MEDS: ONDANSETRON INJ 4 MG/2 ML VIAL IV PUSH (00:09)
[2021-07-25 02:00] VITALS: BP 135/87; PULSE 91; RESP 18; TEMP 36.1; O2SAT 95
[2021-07-25] MEDS: LACTATED RINGERS 1,000 ML 100 ML IV CONT (05:36)
[2021-07-25] MEDS: ACETAMINOPHEN 500 MG TABLET 1000 MG PO (05:36)
[2021-07-25] MEDS: oxyCODONE HCL (*CRX) 5 MG TAB IR PO (05:36)
[2021-07-25 05:52] VITALS: BP 152/89; PULSE 83; RESP 18; TEMP 36.4; O2SAT 96
[2021-07-25 05:52] LABS: Hematocrit 34.8 % (42.0-52.0); Hemoglobin 12.1 g/dL (14.0-18.0); Mean Corpuscular HGB Conc 34.8 g/dl (32-36); Mean Corpuscular Hemoglobin 33.3 pg (26-34); Mean Corpuscular Volume 95.9 fl (80-100); Mean Platelet Volume 9.2 fl (7.4-10.4); Platelet Count Result 209 k/mm3 (150-375); Red Blood Count 3.63 M/mm3 (4.6-6.20); Red Cell Distribution Width 12.4 % (11.5-14.5); White Blood Count 5.4 K/mm3 (4.5-10.0)
[2021-07-25 06:11] LABS: Anion Gap 6 mmol/L (8-16); Blood Urea Nitrogen 11 mg/dL (9-20); Calcium 8.4 mg/dL (8.4-10.2); Carbon Dioxide 26 mmol/L (22-30); Chloride 99 mmol/L (98-107); Estimated CRCL calculation 86 ml/min; Estimated Glomerular Filt Rate > 60; Glucose 155 mg/dL (65-110); Potassium 4.4 mmol/L (3.4-5.0); Sodium 131 mmol/L (137-145)
[2021-07-25] MEDS: ALVIMOPAN 12 MG CAPSULE PO (08:18)
[2021-07-25] MEDS: ENOXAPARIN 40 MG/0.4 ML SYRINGE SUB-Q (08:18)
--- NOTE | 2021-07-25 09:37 | PM.DS ---
DS: Admitting Diagnosis Discharge Date 07/25/2021 Admitting Diagnosis Colostomy status DS: Discharge Diagnosis Discharge Diagnosis (1) History of creation of ostomy: Code(s): Z93.9 - Artificial opening status, unspecified Status: Acute (2) Left ureteral injury: Code(s): S37.10XA - Unspecified injury of ureter, initial encounter Status: Acute (3) HIV (human immunodeficiency virus infection): Qualifiers: HIV symptom status: unspecified Qualified Code(s): B20 - Human immunodeficiency virus [HIV] disease Code(s): B20 - Human immunodeficiency virus [HIV] disease Status: Chronic (4) Diabetes mellitus: Qualifiers: Diabetes mellitus complication status: without complication Diabetes mellitus director long term care insulin use: without mcfp use Diabetes mellitus type: type 2 Qualified Code(s): E11.9 - Type 2 diabetes mellitus without complications Code(s): E11.9 - Type 2 diabetes mellitus without complications Status: Chronic (5) Hypertension: Qualifiers: Hypertension type: primary hypertension Qualified Code(s): I10 - Essential (primary) hypertension Code(s): I10 - Essential (primary) hypertension Status: Chronic DS: Summary Hospital Course Reason for hospitalization: Takedown colostomy Hospital Course: This is a 60-year-old man who presented for colostomy takedown. He has a prior history left lower quadrant end colostomy. He underwent takedown of colostomy and appendectomy 07/20/2021. He was admitted to the surgical floor postoperatively. He was started on clear liquids initially. On postop day 1 he was tolerating the liquids and was advanced to a full liquid diet. His urine output was slightly low and his creatinine was at 1.4. He is not complaining of any difficulty urinating. On postop day 2 his creatinine did go up to 1.5 but was making more urine. He CT urogram was obtained on 07/22 and this only showed mild left hydronephrosis. Patient was making more urine and initially this was felt to be possibly related to inflammation or scarring. His bowels began moving and he continued to tolerate the full liquid diet. On postop day 3 his creatinine stayed the same and he was now complaining of some left flank discomfort. Urology was consulted and decision was made to proceed with cystoscopy. A retrograde pyelogram and ureteroscopy showed evidence a left ureteral injury. On 07/24/2021 he underwent left nephrostomy tube placement. This was successful and urine output appeared to improve. He was advanced to a soft diet and was tolerating this well. On 07/25 his creatinine had normalized and he was continuing to tolerate a regular diet. He was discharged 07/25/2021 Status at Discharge Functional status at discharge: independent ambulation Overall status at discharge: patient is progressing back to baseline Time Spent with Patient Time attestation: Total time spent providing and/or coordinating discharge services: Time spent: Less than 30 minutes Exam Const: General: cooperative and no acute distress Orientation/consciousness: patient oriented x3 Resp: Effort & Inspection: normal respiratory effort Auscultation: clear to auscultation bilaterally Cardio: Rate: regular rate Rhythm: regular rhythm Heart sounds: S1 normal heart sound present and S2 normal heart sound present GI: Inspection: incision (Intact with misa, minimal serous drainage) GI Palp: Yes Soft to palpation, Yes Tenderness to palpation present (GI) (Incision) and No Guarding due to palpation present (GI) Auscultation: normal bowel sounds : Other: Left nephrostomy tube in place with blood-tinged urine in bag DS: Data Data Completed and Pending Pending studies at discharge: Pending at discharge 07/20/21 15:06 Surgical [PTH] Routine Surgical [PTH] Routine Surgical [PTH] Routine Labs on day of discharge: Labs from last 24 hours 07/25/21 05
[2021-07-25 10:00] VITALS: BP 133/94; PULSE 98; RESP 18; TEMP 36.2; O2SAT 96
--- NOTE | 2021-07-25 10:02 | WPDUROPN2 ---
Progress Note: A&P Assessment and Plan (1) Hydronephrosis, left: Code(s): N13.30 - Unspecified hydronephrosis Status: Acute (2) Left ureteral injury: Code(s): S37.10XA - Unspecified injury of ureter, initial encounter Status: Acute Assessment and Plan: Patient appears to be doing very well with his left nephrostomy tube. I had a long discussion with him, again, about the anticipated protracted course with a nephrostomy tube with attempted ureteral reimplantation in 2-3 months. We will see him in follow-up in approximately 2 weeks at which time we may arrange for an antegrade left nephrostogram. Subjective Subjective Date/Time Seen: 07/25/21 10:02 Comfortable, tolerating left nephrostomy tube well Exam Const: General: no acute distress Resp: Effort & Inspection: normal respiratory effort GI: Inspection: non-distended GI Palp: No abdominal tenderness and No Guarding due to palpation present (GI) Auscultation: normal bowel sounds Objective Data Vital Signs Vital Signs: Vital Signs - 24 hr 07/24/21 14:00 07/24/21 20:00 07/24/21 22:00 Temperature 98.1 F 97.3 F L Pulse Rate 90 90 93 Respiratory Rate 16 16 18 Blood Pressure 150/87 H 143/77 H Pulse Oximetry 96 96 95 Oxygen Delivery Room Air 07/25/21 02:00 07/25/21 05:52 Temperature 97.0 F L 97.5 F L Pulse Rate 91 83 Respiratory Rate 18 18 Blood Pressure 135/87 152/89 H Pulse Oximetry 95 96 Oxygen Delivery Intake/Output Intake/Output: Intake & Output 07/22/21 07/23/21 07/24/21 07/25/21 23:59 23:59 23:59 23:59 Intake Total 5050 2940 1300 1400 Output Total 750 1230 3175 1100 Balance 4300 1710 -1875 300 Meds/Results Medications: Active Medications Generic Name Dose Route Start Last Admin Trade Name Freq PRN Reason Stop Dose Admin Acetaminophen 1,000 mg 07/20/21 18:00 07/25/21 05:36 Acetaminophen 500 Mg Tablet PO 1,000 mg Q6HR MARCUS Administration Alvimopan 12 mg 07/21/21 21:00 07/25/21 08:18 Alvimopan 12 Mg Capsule PO 07/28/21 20:59 12 mg Q12HR MARCUS Administration Enoxaparin Sodium 40 mg 07/21/21 09:00 07/25/21 08:18 Enoxaparin 40 Mg/0.4 Ml Syringe SUB-Q 40 mg DAILY MARCUS Administration Hydromorphone HCl 1 mg 07/20/21 17:34 07/24/21 04:50 Hydromorphone Hcl Inj (*Crx) 1 Mg/Ml Syr IV PUSH 1 mg Q2H PRN Administration Pain Rated 7-10 Hydromorphone HCl 0.5 mg 07/20/21 17:34 Hydromorphone Hcl Inj (*Crx) 1 Mg/Ml Syr IV PUSH Q2H PRN Pain Rated 4-6 Lactated Ringer's 1,000 mls @ 100 mls/hr 07/20/21 17:34 07/25/21 05:36 Lr - Lactated Ringers Iv IV CONT 100 mls/hr .Q10H MARCUS Administration Lactated Ringer's 1,000 mls @ 30 mls/hr 07/23/21 14:25 07/23/21 16:20 Lr - Lactated Ringers Iv IV CONT Infused .Q24H MARCUS Infusion Lactated Ringer's 1,000 mls @ 30 mls/hr 07/23/21 14:25 Lr - Lactated Ringers Iv IV CONT .Q24H MARCUS Lisinopril 20 mg 07/23/21 21:00 07/24/21 20:33 Lisinopril 20 Mg Tablet PO 20 mg HS MARCUS Administration Metformin HCl 500 mg 07/23/21 21:00 07/24/21 20:33 Metformin Hcl 500 Mg Tablet PO 500 mg HS MARCUS Administration Ondansetron HCl 4 mg 07/20/21 17:34 07/25/21 00:09 Ondansetron Inj 4 Mg/2 Ml Vial IV PUSH 4 mg Q4H PRN Administration Nausea And Vomiting Oxycodone HCl 5 mg 07/20/21 17:34 07/25/21 05:36 Oxycodone Hcl (*Crx) 5 Mg Tab Ir PO 5 mg Q4H PRN Administration Pain Rated 4-6 Oxycodone HCl 10 mg 07/20/21 17:34 07/24/21 20:33 Oxycodone Hcl (*Crx) 5 Mg Tab Ir PO 10 mg Q4H PRN Administration Pain Rated 7-10 Pravastatin Sodium 20 mg 07/23/21 21:00 07/24/21 20:33 Pravastatin Sodium 20 Mg Tablet PO 20 mg HS MARCUS Administration Sertraline HCl 100 mg 07/20/21 21:00 07/24/21 20:33 Sertraline Hcl 50 Mg Tablet PO 100 mg HS MARCUS Administration Radiology Results: ITS Impressions Abdomen/Pelvis CT 07/22/21 13:13 IMP
--- NOTE | 2021-07-25 10:29 | PC.NURSE ---
IV removed, all discharge paperwork explained, question and concerns answered, pt awaiting ride home.
== END 2021-07-25 11:00 | disposition home or self-care (01) | DRG 330 ==
LOC: ANH2MED 17:36
PROVIDERS: Urology; Admitting Provider Surgery; PCP Emergency Medicine; Visit Provider Surgery
PROC: 0DBN0ZZ Excision of Sigmoid Colon, Open Approach (ICD-10-PCS; CPT 44620; principal; 2021-07-20 12:00)
PROC: (CPT 52352; principal; 2021-07-23 14:00)
DX: Z43.3 Encounter for attention to colostomy (principal); N13.30 Unspecified hydronephrosis; N17.9 Acute kidney failure, unspecified; N99.72 Accidental puncture and laceration of a genitourinary system organ or structure during other procedure; N99.81 Other intraoperative complications of genitourinary system; Y83.8 Other surgical procedures as the cause of abnormal reaction of the patient, or of later complication, without mention of misadventure at the time of the procedure; Y92.234 Operating room of hospital as the place of occurrence of the external cause; K43.5 Parastomal hernia without obstruction or gangrene; E11.9 Type 2 diabetes mellitus without complications; Z21 Asymptomatic human immunodeficiency virus [HIV] infection status; E78.5 Hyperlipidemia, unspecified; I10 Essential (primary) hypertension; G62.9 Polyneuropathy, unspecified; M13.812 Other specified arthritis, left shoulder; M13.88 Other specified arthritis, other site; F12.90 Cannabis use, unspecified, uncomplicated; F41.8 Other specified anxiety disorders
CPT/HCPCS: 36415; 50432; 74177; 74420; 80048; 82948; 85025; 85027; 85610; 85730; 88304; 88305; 88307; A9270; C1729; C1758; C1769; C1894; J0690; J1170; J1650; J1885; J2250; J2405; J2704; J3010; J7120; Q9966; Q9967

== ENCOUNTER 2021-09-26 01:44 | Outpatient (CLI) | payer MEDICARE, MEDICAID, SELFPAY ==
[2021-09-24 12:11] VITALS: BMI 27.8
--- NOTE | 2021-09-24 12:17 | PC.NURSE ---
Pre Radiology instructions Report to the Outpatient Waiting Room, entrance under the green pavilion located off [facility], at time 0830 on date 09/26/21. Procedure Time: 1030. One visitor will be allowed to accompany the patient into the hospital. The visitor will be instructed to remain with patient at all times or leave the building. We will allow the visitor to come back to the postoperative area when patient is ready. You and your visitor will be asked a series of questions to screen for COVID 19 for your protection. A mask is required within the hospital. Patients are to have no food or drink 4 hours prior to procedure time Driving will be restricted after the procedure, you must have a person to drive you home. Labs will be drawn in preop area and once reviewed, you will be taken to radiology area for procedure. When the procedure is completed, you will be taken to outpatient where you will be monitored for several hours. You may have one visitor in this area. Other than holding anti-coagulants, patient may take other medication(s) as scheduled. Prior to your appointment date patients are instructed to hold anti-coagulants after discussing with ordering provider to stop. If unable to discontinue anti-coagulants please notify radiologist. No aspirin or warfarin (Coumadin) for 7 days prior to the procedure. No clopidogrel (Plavix), ticagrelor (Brilinta), prasugrel (Effient) or dabigatran (Pradaxa) for 5 days prior to the procedure. No rivaroxaban (Xarelto), apixaban (Eliquis), dipyridamole (Aggrenox or Persantine) or cilostazol (Pletal) for 2 days prior to the procedure. Medications to discontinue per physician: N/A Date to take last dose: N/A Please leave all valuables, including medications, at home the day of procedure. The hospital will not accept responsibility for valuables. Wear comfortable, loose fitting clothing. Follow any additional instructions given to you from ordering provider. Telephone instructions given to EVA WALSH and asked if any additional questions and then verbalized understanding. Patient advised to call scheduling provider office or registration scheduling [phone] if any additional questions.
[2021-09-26] VITALS (7 sets, daily range): BP systolic 127–153; BP diastolic 73–86; PULSE 84–91; RESP 14–17; TEMP 36.7; O2SAT 96–100
--- NOTE | ~2021-09-26 | XR_ITS ---
EXAMINATION: XR nephrostomy tube change DATE: 09/26/2021 10:40 INDICATION: Left nephrostomy tube change TECHNIQUE: A time-out was performed to verify the patient's name, date of , and procedure to be performed . The procedure including the risks, benefits, and alternatives was discussed with the patient. Risks discussed included bleeding, infection and allergic reaction. The patient understood the risks and a greed to proceed. The patient was confirmed to be on oral antibiotics. 10 mL of Omnipaque 240 contras t was injected into the patient's existing left percutaneous nephrostomy tube to confirm appropriate positioning of the tube within the collecting system and to delineate the anatomy of the collecting s ystem. The skin overlying the left flank as well as the exiting nephrostomy tube were prepped and tommy ped in usual sterile fashion. Anesthetic was administered with 1% lidocaine subcutaneously. The tube was cut and a J-wire was advanced through the catheter into the left renal pelvis and proximal urete r. The cardiac catheter was withdrawn over the wire. A new 8.5 [place] pigtail catheter was advanced o gris the wire into the left renal pelvis with fluoroscopic observation. The wire was removed and the l oop was formed in the left renal pelvis and the wire was withdrawn. Injection of an additional 5 mL o f Omnipaque 240 contrast was injected through the new tube confirming position within the renal pelvi s. The catheter was sutured to the skin and antibiotic ointment and a sterile dressing were applied. An additional adhesive fixation device was applied. The catheter was then attached to gravity drainag e and was draining clear urine at the conclusion of the procedure. There were no immediate complicati ons. Fluoroscopy exposure time was 1.2 minutes. The total number of images was 3. COMPARISON: 07/24/2021 FINDINGS: Initial image demonstrates the old left percutaneous nephrostomy tube with compact distal loop within a calyx of the upper pole of the left kidney and contrast extending throughout the collecting system and into the proximal left ureter. Subsequent images demonstrate the newly placed left . Hysteroscop y tube catheter with loop formed in the left renal pelvis subsequent surrounded by injecting contrast . No evident extraluminal contrast extravasation. IMPRESSION: 1. Successful left percutaneous nephrostomy tube change with fluoroscopic guidance. The catheter will continue to be managed by Dr. Rob. Reviewed, dictated and finalized at location A. IMPRESSION: 1. Successful left percutaneous nephrostomy tube change with fluoroscopic yudy nce. The catheter will continue to be managed by Dr. Rob.
[2021-09-26 08:45] LABS: Mean Platelet Volume 8.9 fl (7.4-10.4); Platelet Count Result 246 k/mm3 (150-375)
[2021-09-26 08:45] LABS: Glucose Point of Care 132 mg/dl (65-105)
[2021-09-26 08:55] LABS: Prothrombin Time 12.9 Seconds (11.1-14.7)
== END 2021-09-26 12:16 | disposition home or self-care (01) ==
PROVIDERS: PCP Emergency Medicine; Referring Provider Nurse Practitioner Adult Health; Visit Provider Radiology Diagnostic Radiology
PROC: 0T25X0Z Change Drainage Device in Kidney, External Approach (ICD-10-PCS; CPT 50435; principal; 2021-09-26 10:30)
DX: Z43.6 Encounter for attention to other artificial openings of urinary tract (principal)
CPT/HCPCS: 36415; 50435; 82948; 85049; 85610; C1729; C1769

== ENCOUNTER 2021-11-02 02:31 | Outpatient (CLI) | payer MEDICARE, MEDICAID, SELFPAY ==
[2021-10-29 13:49] VITALS: BMI 27.3
--- NOTE | 2021-10-29 13:52 | PC.NURSE ---
Pre Radiology instructions Report to the Outpatient Waiting Room, entrance under the green pavilion located off [facility], at time 0830 on date 11/02/21. Procedure Time: 1030. One visitor will be allowed to accompany the patient into the hospital. The visitor will be instructed to remain with patient at all times or leave the building due to restrictions. We will allow the visitor to come back to the postoperative area when patient is ready. NO children visitors allowed at this time. You and your visitor will be asked to self-screen and do not enter if you have any COVID symptoms. A mask is required within the hospital. Patients are to have no food or drink 6 hours prior to procedure time Driving will be restricted after the procedure, you must have a person to drive you home. Labs will be drawn in preop area and once reviewed, you will be taken to radiology area for procedure. When the procedure is completed, you will be taken to outpatient where you will be monitored for several hours. You may have one visitor in this area. Other than holding anti-coagulants, patient may take other medication(s) as scheduled. Prior to your appointment date patients are instructed to hold anti-coagulants after discussing with ordering provider to stop. If unable to discontinue anti-coagulants please notify radiologist. No aspirin or warfarin (Coumadin) for 7 days prior to the procedure. No clopidogrel (Plavix), ticagrelor (Brilinta), prasugrel (Effient) or dabigatran (Pradaxa) for 5 days prior to the procedure. No rivaroxaban (Xarelto), apixaban (Eliquis), dipyridamole (Aggrenox or Persantine) or cilostazol (Pletal) for 2 days prior to the procedure. Medications to discontinue per physician: N/A Date to take last dose: N/A Please leave all valuables, including medications, at home the day of procedure. The hospital will not accept responsibility for valuables. Wear comfortable, loose fitting clothing. Follow any additional instructions given to you from ordering provider. Telephone instructions given to EVA - MITA WALSH and asked if any additional questions and then verbalized understanding. Patient advised to call scheduling provider office or registration scheduling [phone] if any additional questions.
[2021-11-02] VITALS (7 sets, daily range): BP systolic 124–139; BP diastolic 72–83; PULSE 75–81; RESP 16; TEMP 36.1; O2SAT 97–100
--- NOTE | ~2021-11-02 | XR_ITS ---
EXAMINATION: XR nephrostomy tube change DATE: 11/02/2021 10:42 INDICATION: Left ureteral injury. TECHNIQUE: The procedure was discussed with the patient. Risks discussed included bleeding. The patie nt understood the risks and benefits and agreed to proceed. The patient was given 1 g Ancef IV before the procedure. The skin overlying the left kidney was prepped and draped in usual sterile fashion. The existing left nephrostomy tube was cut and exchanged over a wire for a new 8.5 [place] pigtail cat heter under fluoroscopic guidance. Anesthetic was administered with 1% lidocaine subcutaneously. The catheter was stitched to the skin, and a sterile dressing was applied. The urine was pink at the end of the procedure. There were no immediate complications. FINDINGS: Images demonstrate the new left nephrostomy tube in the renal pelvis. IMPRESSION: 1. Left percutaneous nephrostomy tube change. Reviewed, dictated and finalized at location A.
[2021-11-02 09:12] LABS: Mean Platelet Volume 9.5 fl (7.4-10.4); Platelet Count Result 165 k/mm3 (150-375)
[2021-11-02 09:20] LABS: Prothrombin Time 12.3 Seconds (11.1-14.7)
--- NOTE | 2021-11-02 12:32 | SUR.PHASEII ---
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
== END 2021-11-02 13:15 | disposition home or self-care (01) ==
PROVIDERS: Radiology Diagnostic Radiology; PCP Emergency Medicine; Visit Provider Urology
PROC: 0T25X0Z Change Drainage Device in Kidney, External Approach (ICD-10-PCS; CPT 50435; principal; 2021-11-02 10:30)
DX: Z43.6 Encounter for attention to other artificial openings of urinary tract (principal); S37.10XA Unspecified injury of ureter, initial encounter; X58.XXXA Exposure to other specified factors, initial encounter
CPT/HCPCS: 36415; 50435; 85049; 85610; C1729; C1769; J0690

== ENCOUNTER 2021-12-13 08:07 | Outpatient (CLI) | payer MEDICARE, MEDICAID, SELFPAY ==
--- NOTE | ~2021-12-13 | XR_ITS ---
EXAMINATION: XR nephrostogram DATE: 12/13/2021 11:08 INDICATION: Left ureteral injury. TECHNIQUE: I injected the existing left percutaneous nephrostomy tube with water-soluble contrast. Fo ur fluoroscopic images of the abdomen and pelvis were obtained. The final time was 0.2 minutes. COMPARISON: CT abdomen and pelvis 07/22/2021 FINDINGS: A left-sided percutaneous nephrostomy tube is noted. There is occlusion of the left ureter at the level of the sacrum. IMPRESSION: 1. 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 Reviewed, dictated and finalized at location A.
--- NOTE | ~2021-12-13 | XR_ITS ---
EXAMINATION: XR nephrostomy tube change DATE: 12/13/2021 11:14 INDICATION: Left ureteral injury. TECHNIQUE: The procedure was discussed with the patient. Risks discussed included bleeding and infect ion. The patient understood the risks and benefits and agreed to proceed. The patient was given 1 g A ncef IV before the procedure. The skin overlying the left kidney was prepped and draped in usual ster ile fashion. The existing left nephrostomy tube was cut and exchanged over a wire for a new 8.5 [place] pigtail catheter under fluoroscopic guidance. Anesthetic was administered with 1% lidocaine subcuta neously. The catheter was stitched to the skin, and a sterile dressing was applied. The urine was pin k at the end of the procedure. There were no immediate complications. Fluoroscopy exposure time was 2 .1 minutes. The number of images was 1. FINDINGS: Images demonstrate the new left nephrostomy tube in the renal pelvis. IMPRESSION: 1. Left percutaneous nephrostomy tube change. Reviewed, dictated and finalized at location A.
[2021-12-13 08:39] VITALS: BMI 26.4
[2021-12-13 08:47] VITALS: BP 123/83; PULSE 95; RESP 16; TEMP 36.4; O2SAT 99
[2021-12-13 08:59] LABS: Mean Platelet Volume 9.2 fl (7.4-10.4); Platelet Count Result 242 k/mm3 (150-375)
[2021-12-13 09:09] LABS: INR 0.9; Prothrombin Time 12.1 Seconds (11.1-14.7)
--- NOTE | 2021-12-14 07:39 | SUR.PREOP ---
at 1100 12/13 patient went to radiology and staff stated patient would be discharged from that area when done.
== END 2021-12-13 11:00 | disposition home or self-care (01) ==
PROVIDERS: Radiology Diagnostic Radiology; Visit Provider Urology
PROC: 0T25X0Z Change Drainage Device in Kidney, External Approach (ICD-10-PCS; CPT 50435; principal; 2021-12-13 11:30)
DX: S37.10XA Unspecified injury of ureter, initial encounter (principal); X58.XXXA Exposure to other specified factors, initial encounter
CPT/HCPCS: 36415; 50431; 50435; 85049; 85610; C1729; J0690; Q9966

== ENCOUNTER → 2022-10-16 14:35 | Outpatient (CLI) | payer MEDICARE, MEDICAID, SELFPAY ==
--- NOTE | ~2022-10-16 | XR_ITS ---
EXAMINATION: XR chest 2V Exam Date/Time: 10/16/2022 14:43 CDT HISTORY: DECREASE BROHNI SOUNDS Comparison: None. RESULT: Lines, tubes, and devices: ACDF hardware. Lungs and pleura: Clear. Cardiomediastinal silhouette: Unremarkable. Other: No acute osseous or upper abdominal finding. IMPRESSION: No acute cardiopulmonary process. Reviewed, dictated and finalized at location K.
== END ==
PROVIDERS: PCP Emergency Medicine; Visit Provider Emergency Medicine
DX: R09.89 Other specified symptoms and signs involving the circulatory and respiratory systems (principal)
CPT/HCPCS: 71046